=== PATIENT | female | born 1935 | race Caucasian/White ===

== ENCOUNTER → 2016-09-19 | Outpatient (CLI) | payer OTHER, BC ==
[~2016-09-19] MED LIST: ASCA500 PO; ASPI81TA28 PO; B-COCAP2 PO; CRS/10 PO; FURO40TA3 PO; IBUP600T44 PO; MULT-506 PO; NTRGSL/4 UT; POTA-335 PO; RIVA1TAB4 PO; SERT50TA PO; SOTA80TA PO; VITA400C3 PO; XNX25 PO
[2016-09-19 09:43] LABS: HEMATOCRIT 43.5 % (37-47); MEAN CELL VOLUME 89.7 fL (80-100); MEAN CORPUSCULAR HEMOGLOBIN 29.5 pg (25-34); MEAN CORPUSCULAR HGB CONC 32.9 g/dl (32-36); MEAN PLATELET VOLUME 11.3 fL (7.4-10.4); PLATELET COUNT 159 K/uL (130-400); RED BLOOD COUNT 4.85 M/uL (4.2-5.4); WHITE BLOOD COUNT 5.84 K/uL (4.8-10.8)
[2016-09-19 09:48] LABS: BLOOD UREA NITROGEN 17 mg/dl (7-18); GLUCOSE 87 mg/dl (70-99)
[2016-09-19 09:49] LABS: ALT/SGPT 23 U/L (12-78); BUN/CREATININE RATIO 22.3 (10-20); CALCIUM 8.5 mg/dl (8.5-10.1); CARBON DIOXIDE 28 mmol/L (21-32); CHLORIDE 110 mmol/L (98-107); CHOLESTEROL 190 mg/dl (0-200); CREATININE 0.77 mg/dl (0.60-1.20); SODIUM 143 mmol/L (136-145)
[2016-09-19 09:59] LABS: ALB/GLOB RATIO 0.8 (0.9-2); ALKALINE PHOSPHATASE 74 U/L (45-117); AST/SGOT 21 U/L (15-37); CHOLESTEROL/HDL RATIO 3.1; HDL CHOLESTEROL 61 mg/dl; LDL CHOLESTEROL CALCULATED 113 mg/dl; TRIGLYCERIDES 81 mg/dl (0-150); VERY LOW DENSITY LIPOPROT CALC 16 mg/dl
== END | disposition home or self-care (01) ==
LOC: C.LAB 07:39
PROVIDERS: ATTEND Family Medicine
DX: I25.10 Atherosclerotic heart disease of native coronary artery without angina pectoris (principal); E78.5 Hyperlipidemia, unspecified; R60.9 Edema, unspecified

== ENCOUNTER → 2016-10-09 | Outpatient (CLI) | payer OTHER, BC ==
[2016-10-09 12:50] LABS: BLOOD UREA NITROGEN 23 mg/dl (7-18); BUN/CREATININE RATIO 26.7 (10-20); CALCIUM 9.2 mg/dl (8.5-10.1); CARBON DIOXIDE 30 mmol/L (21-32); CHLORIDE 103 mmol/L (98-107); CREATININE 0.87 mg/dl (0.60-1.20); GLUCOSE 74 mg/dl (70-99); POTASSIUM 4.1 mmol/L (3.5-5.1); SODIUM 141 mmol/L (136-145)
== END | disposition home or self-care (01) ==
LOC: C.LAB 10:34
PROVIDERS: ATTEND Family Medicine
DX: R60.9 Edema, unspecified (principal)

== ENCOUNTER → 2017-04-09 | Outpatient (CLI) | payer OTHER, BC ==
[2017-04-09 09:35] LABS: HEMATOCRIT 42.3 % (37-47); MEAN CELL VOLUME 89.1 fL (80-100); MEAN CORPUSCULAR HEMOGLOBIN 29.9 pg (25-34); MEAN CORPUSCULAR HGB CONC 33.6 g/dl (32-36); MEAN PLATELET VOLUME 10.8 fL (7.4-10.4); PLATELET COUNT 157 K/uL (130-400); RED BLOOD COUNT 4.75 M/uL (4.2-5.4); WHITE BLOOD COUNT 6.33 K/uL (4.8-10.8)
[2017-04-09 09:56] LABS: ALT/SGPT 21 U/L (12-78); AST/SGOT 20 U/L (15-37); BLOOD UREA NITROGEN 15 mg/dl (7-18); BUN/CREATININE RATIO 17.8 (10-20); CARBON DIOXIDE 29 mmol/L (21-32); CHLORIDE 108 mmol/L (98-107); CHOLESTEROL 191 mg/dl (0-200); CREATININE 0.83 mg/dl (0.60-1.20); GLUCOSE 85 mg/dl (70-99); POTASSIUM 4.2 mmol/L (3.5-5.1); SODIUM 141 mmol/L (136-145); TRIGLYCERIDES 95 mg/dl (0-150); VERY LOW DENSITY LIPOPROT CALC 19 mg/dl
[2017-04-09 10:17] LABS: ALB/GLOB RATIO 0.9 (0.9-2); ALKALINE PHOSPHATASE 72 U/L (45-117); CHOLESTEROL/HDL RATIO 2.9; HDL CHOLESTEROL 65 mg/dl; LDL CHOLESTEROL CALCULATED 107 mg/dl
== END | disposition home or self-care (01) ==
LOC: C.LAB 08:10
PROVIDERS: ATTEND Neuromusculoskeletal Medicine & OMM
DX: I25.10 Atherosclerotic heart disease of native coronary artery without angina pectoris (principal); E78.5 Hyperlipidemia, unspecified; R60.9 Edema, unspecified; I10 Essential (primary) hypertension

== ENCOUNTER → 2017-05-31 | Outpatient (CLI) | payer OTHER, BC ==
--- NOTE | 2017-05-31 15:00 | DIAGNOSTIC IMAGING REPORT ---
CHEST 2 VIEWS ROUTINE CLINICAL HISTORY: R06.09 Dyspnea on [id number] dyspnea COMPARISON STUDY: 02/10/2016 FINDINGS: Good position of a permanent bipolar cardiac pacemaker. Mild tortuosity thoracic aorta. Heart top limits normal in terms of size. Diaphragms smooth. Lungs are clear. IMPRESSION: Chronic and postoperative change. No acute process. The above report was generated using voice recognition software. It may contain grammatical, syntax or spelling errors. Electronically signed by: Philippe Henry M.D. 05/31/2017 2:59 PM Dictated Date/Time: 05/31/2017 2:57 PM
== END | disposition home or self-care (01) ==
LOC: C.RAD1850 14:43
PROVIDERS: ATTEND Physician Assistant
DX: R06.09 Other forms of dyspnea (principal)

== ENCOUNTER → 2017-06-07 | Outpatient (CLI) | payer OTHER, BC ==
[~2017-06-07] MED LIST changes: +REGADENOSON 0.4 MG/5 ML SYR ONE
== END | disposition home or self-care (01) ==
LOC: C.NUCL 10:52
PROVIDERS: ATTEND Physician Assistant
DX: I25.10 Atherosclerotic heart disease of native coronary artery without angina pectoris (principal); R06.09 Other forms of dyspnea

== ENCOUNTER → 2017-06-12 | Outpatient (CLI) | payer OTHER, BC ==
[~2017-06-12] MED LIST changes: +ALPR-413 PO; +ASPI325T45 PO; +FRS/40 PO; +METH-446 PO; +POTA20TA16 PO; -REGADENOSON 0.4 MG/5 ML SYR ONE; +SIMV10TA2 PO; +SOTA240T PO; +SPIR25TA PO
== END | disposition home or self-care (01) ==
LOC: C.PATHSPEC 13:16
PROVIDERS: ATTEND Obstetrics & Gynecology
DX: N95.0 Postmenopausal bleeding (principal)

== ENCOUNTER → 2017-06-12 | Outpatient (CLI) | payer OTHER, BC | END | disposition home or self-care (01) | LOC: C.PAPS 13:55 | PROVIDERS: ATTEND Obstetrics & Gynecology | DX: N95.0 Postmenopausal bleeding (principal) ==

== ENCOUNTER → 2017-07-15 | Day surgery (SDC) | payer OTHER, BC ==
[2017-06-27 13:36] VITALS: Ht 165.1 cm; Wt 86.4 kg
[2017-07-10 15:59] LABS: POTASSIUM 3.9 mmol/L (3.5-5.1)
--- NOTE | 2017-07-12 10:13 | HISTORY & PHYSICAL EXAMINATION ---
DATE OF ADMISSION: 07/15/2017 CHIEF COMPLAINT: Postmenopausal bleeding. HISTORY OF PRESENT ILLNESS: The patient is an 82-year-old white female 3, para 3 who has been menopausal since her early 50s. The patient reports spotting and sometimes heavier bleeding for approximately 7 months. She was seen by me on 06/12/2017 and I performed an endometrial biopsy at that time. Unfortunately, no endometrial tissue was identified. Pelvic ultrasound shows a thickened endometrial lining of 12.8 mm which has some microcystic changes. Pap smear done on 06/12/2017 was negative. The patient does have a history of cardiac disease. She will be stopping her Xarelto 2 days before the procedure. She does have clearance from cardiology. PAST MEDICAL HISTORY: ALLERGIES: SHE REPORTS AN ALLERGY TO DIGOXIN. MEDICATIONS: The patient takes Xarelto 20 mg daily, aspirin 325 mg 1 daily, Colace daily, furosemide 40 mg daily, Klor-Con 20 mEq 1 tablet daily, methocarbamol 750 mg 1 tablet if needed, Nitrostat 0.4 mg sublingual tablet every 5 minutes for up to 3 doses as needed for chest pain, omeprazole 20 mg delayed release capsule twice daily as needed with ibuprofen use, sertraline 50 mg 1/2 tablet daily, simvastatin 10 mg 1 tablet Saturday, Saturday and Saturday, sotalol 250 mg twice a day, spironolactone 25 mg 1 tablet Saturday, Saturday and Saturday, tramadol 50 mg 1 tablet every 6 hours as needed. The patient also takes vitamin B complex 1 daily, vitamin C tablet 1 tablet twice a week, vitamin D tablets 1 tablet twice a week, vitamin E 1 capsule twice weekly. PAST SURGICAL HISTORY: The patient does have coronary artery stents in place. She has a history of hemorrhoidectomy, a history of tubal ligation. She also has had a pacemaker placed. ILLNESSES: The patient has a history of PAT, also anxiety disorder, history of coronary artery disease with cardiac pacemaker and stent placement. History of depression. History of elevated lipids. History of hypertension. Also osteoarthritis. History of heart attack. FAMILY HISTORY: Her mother had congestive heart failure, hypertension and a history of ulcer. Her father had colon cancer. Her sister has coronary artery disease and lung cancer. SOCIAL HISTORY: The patient denies use of alcohol or drug use. She was never a smoker. She is . PHYSICAL EXAMINATION: VITAL SIGNS: Height is 5 feet 5 inches, weight 190 pounds, blood pressure 124/76. HEAD, EYES, EARS, NOSE, AND THROAT: Grossly within normal limits. NECK: Supple without masses. CHEST: Her lungs are clear without wheezing. HEART: Regular rate and rhythm. There is a systolic murmur present. ABDOMEN: Soft and nontender with no masses. PELVIC: External genitalia normal. Vagina pink and smooth. Cervix was closed with no lesions visible. No bleeding at present. Uterus sits high in the pelvis and seems to be within normal limits size. Adnexa nontender with no masses palpable. EXTREMITIES: No cyanosis, clubbing or edema. IMPRESSION: An 82-year-old white female with post-menopausal bleeding, endometrial thickening and/or mass by ultrasound. PLAN: The patient is for hysteroscopy, dilation of the cervix and curettage with possible removal of polyp/lesion. The patient is aware of the risks of bleeding, infection, perforation of the uterus and possible need for further surgery or treatment. MARTIN
[~2017-07-15] VITALS: Ht 165.1 cm; Wt 86.4 kg
[~2017-07-15] MED LIST changes: -ASCA500 PO; -ASPI81TA28 PO; +ATROPINE SULFATE 0.1 MG/ML 5ML SYR IV PRN; -B-COCAP2 PO; -CRS/10 PO; +DEXAMETHASONE SOD INJ 4 MG/ML VIAL ONE; +EpHEDrine SULFATE INJ 50 MG/ML AMP IV PRN; +FENTANYL CITRATE INJ 50 MCG/1 ML 2 ML VIAL IV PRN; +FENTANYL CITRATE INJ 50 MCG/1 ML 2 ML VIAL ONE; -FURO40TA3 PO; +HYDROmorphone INJ 1 MG/ML SYR IV PRN; -IBUP600T44 PO; +IBUPROFEN 600 MG TAB PO PRN; +LACTATED RINGER'S 1000ML 1,000 ML IV SCH; +LIDOCAINE HCL 2% 2 ML VIAL (20MG/ML) ONE; -MULT-506 PO; -NTRGSL/4 UT; +ONDANSETRON INJ 2 MG/ML 2 ML VIAL IV PRN; +ONDANSETRON INJ 2 MG/ML 2 ML VIAL ONE; -POTA-335 PO; +PROPOFOL IV EMULSION 10 MG/ML 20 ML VIAL IV ONE; +SODIUM CHLORIDE 0.9% 1000ML 1,000 ML IV SCH; -SOTA80TA PO; -VITA400C3 PO; -XNX25 PO
--- NOTE | 2017-07-15 07:55 | History & Physical Bridge - SC ---
H&P Re-Evaluation Bridge Note: I have examined the patient, reviewed the History & Physical and in the interval since the performance of the History & Physical I have noted the following changes of clinical significance: No changes noted
--- NOTE | 2017-07-15 08:44 | [facility] Post Operative Brief Note ---
Immediate Operative Summary Operative Date Jul 15, 2017. Pre-Operative Diagnosis Post menopausal bleeding Post-Operative Diagnosis Same as preop Procedure(s) Performed Dilatation And Curettage, Hysteroscopy, Polypectomy using Myosure Surgeon Dr. Duncan Rail Switch Operator Surgeon(s) None Estimated Blood Loss 10 mL Findings See dictated note. Specimens A: Endocervical curettings B: Endometrial curettings and polyp Complication(s) None Disposition Recovery Room / PACU
--- NOTE | 2017-07-15 08:55 | Discharge Instructions-SurgCtr ---
Discharge Instructions Date of Service Jul 15, 2017. Visit Reason for Visit: Post Menopausal Bleeding Discharge Discharge Diagnosis / Problem: S/P Hysteroscopy, D&C, polypectomy using Myosure Discharge Goals Goal(s): Diagnostic testing, Therapeutic intervention Medications Stopped Medications Name(s): ASA 325 reduced to 81 mg. Xarelto stopped 4 days ago Restart Stopped Medication(s): Resume taking xarelto 07/16/17, and resume usual amount of aspirin tomorrow. Activity Recommendations Activity Limitations: per Instructions/Follow-up section Anesthesia . Post Anesthesia Instructions: If you have had General Anesthesia or IV Sedation: * Do not drive today. * Resume driving when surgeon permits. * Do not make important decisions or sign legal documents today. * Call surgeon for: 1. Temperature elevations greater than 101 degrees F. 2. Uncontrollable pain. 3. Excessive bleeding. 4. Persistent nausea and vomiting. 5. Medication intolerance (nausea, vomiting or rash). * For nausea and vomiting use only clear liquids such as: tea, soda, bouillon until nausea subsides, then gradually increase diet as tolerated. * If you have any concerns or questions, call your surgeon's office. If physician is unavailable and it is an emergency, call 911 or go to the nearest emergency room. . Instructions / Follow-Up Instructions / Follow-Up ACTIVITY RECOMMENDATIONS: * Avoid tampons, douching, hot tubs, pools, and intercourse until bleeding has stopped. * May shower as usual. * No strenuous activity for 24-48 hours. After 24-48 hours, you may do anything you feel like doing (driving and sports are okay). SPECIAL CARE INSTRUCTIONS: Special Diet: * Mild nausea may occur in the immediate post-operative period. * Take clear liquids such as tea, cola or bouillon until all nausea has subsided; you may then resume your normal diet. Special Care: * Light bleeding and vaginal spotting can last from a few days to 3-4 weeks. Call your doctor if bleeding becomes heavier than the heaviest part of your period. * Check your temperature twice a day for one week. If it goes above 100.4 degrees Fahrenheit (38.0 Celsius), notify your doctor. Call if you develop a foul smelling vaginal discharge or if you have persistent severe cramping. * Call your doctor's office for an appointment for 2-4 weeks after your surgery. [phone] Duncan. FOLLOW-UP VISIT: Call your doctor's office for an appointment for 2-4 weeks after your surgery. [phone] Diet Recommendations Home Diet: resume previous diet Procedures Procedures Performed: Dilatation And Curettage, Hysteroscopy, Polypectomy using Myosure Pending Studies Studies pending at discharge: yes List of pending studies: Pathology report on tissue removed. We will have this report back by the end of the week. We will call you with it. Medical Emergencies . Who to Call and When: Medical Emergencies: If at any time you feel your situation is an emergency, please call 911 immediately. . Non-Emergent Contact Non-Emergency issues call your: Branch Assistant Call Non-Emergent contact if: temperature is above 100.5, your pain is worsening . . "Provider Documentation" section prepared by Marlin Duncan. .
--- NOTE | 2017-07-15 09:13 | OPERATIVE REPORT ---
DATE OF OPERATION: 07/15/2017 PREOPERATIVE DIAGNOSIS: Postmenopausal bleeding. POSTOPERATIVE DIAGNOSIS: Same with pathology pending. PROCEDURES: Hysteroscopy, D&C and polypectomy. SURGEON: Dr. Marlin Duncan. ANESTHESIA: General. REVENUE INTEGRITY ANALYST: Dr. Newell. DESCRIPTION OF PROCEDURE: The patient was taken to the operating room, where general anesthesia was administered. After an adequate level was obtained, she was placed in dorsal lithotomy position. Vulva, vagina, and cervix were prepped with Betadine solution. The patient was draped. Bladder was drained with a straight catheter. Weighted speculum was placed in the posterior fornix of the vagina. The anterior lip of the cervix was grasped with an Allis clamp. The exocervix was dilated with a small curved hemostat. Kevorkian curette was then introduced into the endocervical canal and endocervical curettings were obtained. These were scant. It was then possible to dilate the cervix. This was dilated enough to admit the hysteroscope. Hysteroscope was introduced and the endometrial cavity visualized. There were several small polypoid masses. These were irregular in appearance, although did not have the classic appearance of adenocarcinoma. In order to assure that I removed all the polypoid tissue, a MyoSure instrument was then introduced into the cavity and all the polypoid tissue and some additional endometrial tissue was removed. Cavity appeared empty and atrophic after this was finished. The patient tolerated this well. ESTIMATED BLOOD LOSS: 10 mL. This tissue was sent to pathology. The patient was taken to the recovery room in good condition. I attest to the content of the Intraoperative Record and any orders documented therein. Any exceptions are noted below. MARTIN
[2017-07-15 09:26] VITALS: TEMP 36.4
--- NOTE | 2017-07-15 09:50 | Anesthesia Progress Nt - [facility] ---
Anesthesia Post Op Note Date & Time Jul 15, 2017 at 09:50 Vital Signs Pain Intensity: 0 Vital Signs Past 12 Hours Date Time Temp Pulse Resp B/P (MAP) Pulse Ox O2 Delivery O2 Flow Rate FiO2 07/15/17 09:26 36.4 78 18 133/66 (88) 94 Room Air 07/15/17 09:21 36.4 60 16 153/74 96 Room Air 07/15/17 09:17 59 21 07/15/17 09:17 60 21 95 07/15/17 09:15 154/81 07/15/17 09:12 62 23 97 07/15/17 09:12 62 23 07/15/17 09:10 130/75 07/15/17 09:07 64 14 07/15/17 09:07 62 14 92 07/15/17 09:05 138/71 07/15/17 09:02 60 24 96 07/15/17 09:02 60 24 07/15/17 09:00 140/73 07/15/17 08:57 61 16 07/15/17 08:57 61 16 96 07/15/17 08:56 141/75 07/15/17 08:52 67 17 07/15/17 08:52 67 17 97 07/15/17 08:51 68 16 96 07/15/17 08:51 68 16 96 07/15/17 08:51 68 16 07/15/17 08:51 68 16 07/15/17 08:50 147/73 07/15/17 08:50 147/73 07/15/17 08:49 145/75 07/15/17 08:49 145/75 07/15/17 08:47 36.4 62 16 144/76 97 Mask 5 07/15/17 07:34 36.4 72 16 143/84 (103) 93 Room Air Notes Mental Status: alert / awake / arousable, participated in evaluation Pt Amnestic to Procedure: Yes Nausea / Vomiting: adequately controlled Pain: adequately controlled Airway Patency, RR, SpO2: stable & adequate BP & HR: stable & adequate Hydration State: stable & adequate Anesthetic Complications: no major complications apparent
[2017-07-15 09:52] VITALS: BP 120/83; PULSE 64; O2SAT 95
== END | disposition home or self-care (01) ==
LOC: X.SURG 07:21
PROVIDERS: ATTEND Obstetrics & Gynecology
DX: N95.0 Postmenopausal bleeding (principal); C54.1 Malignant neoplasm of endometrium; I48.0 Paroxysmal atrial fibrillation; I25.10 Atherosclerotic heart disease of native coronary artery without angina pectoris; F41.9 Anxiety disorder, unspecified; F32.9 Major depressive disorder, single episode, unspecified; H91.90 Unspecified hearing loss, unspecified ear; E78.5 Hyperlipidemia, unspecified; I10 Essential (primary) hypertension; M19.90 Unspecified osteoarthritis, unspecified site; Z98.51 Tubal ligation status; Z95.0 Presence of cardiac pacemaker; Z79.899 Other long term (current) drug therapy; Z79.82 Long term (current) use of aspirin; Z79.01 Long term (current) use of anticoagulants; Z82.49 Family history of ischemic heart disease and other diseases of the circulatory system; Z80.0 Family history of malignant neoplasm of digestive organs

== ENCOUNTER → 2018-02-10 | Outpatient (CLI) | payer OTHER, BC ==
[~2018-02-10] MED LIST changes: +ASPECOTC PO; -ASPI325T45 PO; -ATROPINE SULFATE 0.1 MG/ML 5ML SYR IV PRN; -DEXAMETHASONE SOD INJ 4 MG/ML VIAL ONE; -EpHEDrine SULFATE INJ 50 MG/ML AMP IV PRN; -FENTANYL CITRATE INJ 50 MCG/1 ML 2 ML VIAL IV PRN; -FENTANYL CITRATE INJ 50 MCG/1 ML 2 ML VIAL ONE; -HYDROmorphone INJ 1 MG/ML SYR IV PRN; -IBUPROFEN 600 MG TAB PO PRN; -LACTATED RINGER'S 1000ML 1,000 ML IV SCH; -LIDOCAINE HCL 2% 2 ML VIAL (20MG/ML) ONE; -ONDANSETRON INJ 2 MG/ML 2 ML VIAL IV PRN; -ONDANSETRON INJ 2 MG/ML 2 ML VIAL ONE; +POTA-639 PO; -POTA20TA16 PO; -PROPOFOL IV EMULSION 10 MG/ML 20 ML VIAL IV ONE; -SODIUM CHLORIDE 0.9% 1000ML 1,000 ML IV SCH
== END | disposition home or self-care (01) ==
LOC: C.PATHSPEC 17:48
PROVIDERS: ATTEND Plastic Surgery
DX: B07.9 Viral wart, unspecified (principal)

== ENCOUNTER 2019-07-24 22:13 | Observation (INO) ==
[2019-07-24] MEDS ORDERED: dilTIAZem HCl 5 MG/ML 5 ML VIAL IV STA (22:27)
--- NOTE | 2019-07-24 22:34 | Emergency Department Note ---
History of Present Illness General Chief complaint: Arrhythmia/Palpitations Stated complaint: PALPITATIONS History of Present Illness This 84-year-old presents to the ER complaining of palpitations Location: Chest Quality: Heart racing Severity: Moderate Duration: Tonight Timing: Started while reading tonight Context: Patient was concerned and came in Modifying factors: better with nothing; worse with nothing Patient has a history of A. fib and follows with Dr. Bailey. She is on Xarelto and sotalol. Patient denies chest pain, abdominal pain, leg pain or swelling, fever, chills, cough, congestion. She just saw the cardiology PA yesterday and the family care doctor last week and us last week. Home Medications Home Medications Medication Instructions Recorded Confirmed Type aspirin 325 mg PO QAM 11/15/18 07/24/19 History rivaroxaban [Xarelto] 20 mg PO HS 11/15/18 07/24/19 History sotalol 240 mg tablet 240 mg PO BID #180 tab 02/10/19 07/24/19 Rx docusate sodium 100 mg capsule 100 mg PO DAILY 02/24/19 07/24/19 History multivitamin 1 tab PO DAILY 02/24/19 07/24/19 History polyethylene glycol 3350 17 17 g PO DAILY PRN gm 02/24/19 07/24/19 History gram/dose oral powder ascorbic acid (vitamin C) 500 mg 500 mg PO 2XWK tab 04/30/19 07/24/19 History tablet cholecalciferol (vitamin D3) 2,000 2,000 units PO 2XWK tab 04/30/19 07/24/19 History unit tablet nitroglycerin 0.4 mg sublingual 0.4 mg SL Q5M PRN #25 tab 04/30/19 07/24/19 History tablet alprazolam 0.25 mg tablet 0.25 mg PO BID PRN #30 tab 05/01/19 07/24/19 Rx sertraline 50 mg tablet 75 mg PO QAM #45 tab 05/06/19 07/24/19 Rx methocarbamol 750 mg tablet 750 mg PO BID PRN #60 tab 05/25/19 07/24/19 Rx furosemide 40 mg tablet 40 mg PO DAILY #90 tab 07/06/19 07/24/19 Rx potassium chloride 20 meq PO DAILY 07/14/19 07/24/19 History simvastatin 10 mg PO 3XWK 07/14/19 07/24/19 History albuterol sulfate 90 mcg/actuation 1 - 2 puffs INH QID #18 gm 07/20/19 07/24/19 Rx aerosol inhaler Allergies Allergy/AdvReac Type Severity Reaction Status Date / Time digoxin AdvReac Mild DIARRHEA Verified 07/24/19 23:55 Past Med/Surg History Medical History Acute myocardial infarction Atrial fibrillation (Chronic) Encounter for follow-up surveillance of endometrial cancer Endometrial adenocarcinoma s/p robotic TLH/BSO 2018 HTN (hypertension) (Chronic) Surgical History S/P hysterectomy S/P placement of cardiac pacemaker S/P tubal ligation Family History Father Colorectal cancer Mother Congestive heart failure Hypertension Ulcer Colorectal cancer Myocardial infarction Sister Coronary arteriosclerosis Endometriosis Lung cancer Social History Preferred Language: Moldovan Communication Ability: Effective Visual Impairment: No Limitations Hearing Ability: Normal Beliefs That Will Affect Care: None marital status: Current Living Situation: Alone current occupational status: retired Feels Safe at Home: Yes Smoking Status: Never smoker Hx Alcohol Use: No Hx Substance Use: No Childhood Exposure to Second-Hand Smoke: No Dental Care, Regularly: No Physical Activity Frequency: Does not Exercise Seatbelt Use: always Sunscreen Use: No Review of Systems A total of 10 systems reviewed and were otherwise negative Physical Exam Vital Signs Vital Signs - 24 hr 07/24/19 22:17 07/24/19 22:30 07/24/19 22:33 Temperature 36.8 C Temperature Source Oral Pulse Rate 124 H 123 H Pulse Rate [Bilateral Apical] Pulse Rate from SpO2 Sensor 125 H Pulse Rhythm Irregular Pulse Strength Normal Respiratory Rate 20 19 Respiratory Effort / Characteristics Non-Labored Spontaneous Respiratory Pattern Regular Blood Pressure 156/109 H 119/89 Blood Pressure [Left Arm] Blood Pressure Mean 124 94 Blood Pressure Mean [Left Arm] Blood Pressure Position Sitting Pulse Oximetry 94 94 94 Oxygen Delivery Method Room Air Room Air Room Air Sepsis Recent Fever Within 48 Hours No Sepsis New/Unexplained Change in Mental Status No Sepsis Action Taken by Nursing No Action Required 07/24/19 23:07 07/24/19 23:33 07/25/19 00:21 Temperature Temperature Source Pulse Rate Pulse Rate [Bilateral Apical] 82 99 H 104 H Pulse Rate from SpO2 Sensor Pulse Rhythm Pulse Strength Respiratory Rate 18 20 20 Respiratory Effort / Characteristics Respiratory Pattern Blood Pressure Blood Pressure [Left Arm] 121/85 131/86 137/86 Blood Pressure Mean Blood Pressure Mean [Left Arm] 97 101 103 Blood Pressure Position Pulse Oximetry 93 93 95 Oxygen Delivery Method Room Air Room Air Room Air Sepsis Recent Fever Within 48 Hours Sepsis New/Unexplained Change in Mental Status Sepsis Action Taken by Nursing VITALS: Vitals are noted on the nurse's note and reviewed by myself. Vital signs tachycardic. GENERAL: Pleasant female, in no acute distress, nondiaphoretic, well-developed well-nourished. SKIN: Capillary reflex less than 2 seconds. HEENT: Normocephalic. PERRLA. EOMI. Nares patent. Mucous membranes moist. Neck is supple without nuchal rigidity. HEART: Tachycardic irregularly irregular LUNGS: Clear to auscultation bilaterally without wheezes, rales or rhonchi. No retractions or accessory muscle use. ABDOMEN: Positive bowel sounds x 4. Normal tympanic percussion. Soft, n ontender, without masses or organomegaly. Degroot sign negative. No guarding or rebound tenderness. MUSCULOSKELETAL: No gross musculoskeletal defects. +1 pitting edema up to the mid tib-fib bilaterally. NEURO: Patient was alert and oriented to person place and time. No focal neurological deficits. Course Administered Medications Discontinued Medications Diltiazem HCl (Cardizem) 10 mg IV NOW STA Stop: 07/24/19 22:28 Last Admin: 07/24/19 22:57 Dose: 10 mg Documented by: [id number] Cosigned by: [id number] Medical Decision Making Medical Records Attestation: I reviewed the patient's medical records. Home Medications Current Medication List: was personally reviewed by me Laboratory Data Attestation: I reviewed the patient's lab results. Result diagrams: 07/24/19 22:45 07/24/19 22:45 Lab Results 07/24/19 07/24/19 Range/Units 22:45 22:45 WBC 7.92 (4.8-10.8) K/uL RBC 4.43 (4.2-5.4) M/uL Hgb 12.8 (12.0-16.0) g/dL Hct 39.4 (37-47) % MCV 88.9 (80-100) fL MCH 28.9 (25-34) pg MCHC 32.5 (32-36) g/dL RDW Std Deviation 44.6 (36.4-46.3) fL RDW Coeff of Cem 13.6 (11.5-14.5) % Plt Count 161 (130-400) K/uL MPV 10.9 H (7.4-10.4) fL Immature Gran % (Auto) 0.1 % Neut % (Auto) 60.6 % Lymph % (Auto) 20.2 % Mcdowell % (Auto) 14.5 % Eos % (Auto) 4.2 % Baso % (Auto) 0.4 % Immature Gran # (Auto) 0.01 (0.00-0.02) K/uL Neut # (Auto) 4.80 (1.4-6.5) K/uL Lymph # (Auto) 1.60 (1.2-3.4) K/uL Mcdowell # (Auto) 1.15 H (0.11-0.59) K/uL Eos # (Auto) 0.33 (0-0.5) K/uL Baso # (Auto) 0.03 (0-0.2) K/uL Sodium 141 (136-145) mmol/L Potassium 3.7 (3.5-5.1) mmol/L Chloride 109 H (98-107) mmol/L Carbon Dioxide 26 (21-32) mmol/L Anion Gap 7.0 (3-11) BUN 23 H (7-18) mg/dl Creatinine 0.89 (0.6-1.2) mg/dl Est Cr Clr Drug Dosing 44.8 ml/min Est GFR ( Amer) 69.5 Est GFR (Non-Af Amer) 59.9 BUN/Creatinine Ratio 26.1 H (10-20) Glucose 121 H (70-99) mg/dl Calcium 8.8 (8.5-10.1) mg/dl Magnesium 2.1 (1.8-2.4) mg/dl Total Bilirubin 0.2 (0.2-1) mg/dl AST 19 (15-37) U/L ALT 19 (12-78) U/L Alkaline Phosphatase 85 (45-117) U/L Troponin I < 0.015 (0-0.045) ng/ml Total Protein 7.2 (6.4-8.2) gm/dl Albumin 3.0 L (3.4-5.0) gm/dl Globulin 4.2 H (2.5-4.0) gm/dl Albumin/Globulin Ratio 0.7 L (0.9-2) TSH 2.260 (0.300-4.500) uIu/ml Imaging Data Attestation: I personally reviewed and interpreted this imaging study as follows: Blood Pressure Blood Pressure Findings: Elevated blood pressure Blood Pressure Disposition: Referred to patients primary care provider [facility] Narrative Prior records/ancillary studies reviewed. Triage Nursing notes reviewed. Additional history obtained from EMS. The patient's history was concerning for palpitations. Differential diagnosis: Etiologies such as premature contractions, electrolyte abnormality, cardiac dysrhythmia, thyroid dysfunction, pulmonary embolism, infection, gastrointestinal, as well as others were entertained. Physical examination: Benign as above. ER treatment provided: Cardizem On reassessment the patient felt better. Diagnostic interpretation by me: An order was placed for continuous cardiac monitoring. The monitor shows a rate of tachycardia with a atrial fib rhythm The electrocardiogram irregularly irregular with ventricular rate of 119 with T wave inversions in the inferior leads. EKG compared to prior EKG from last week with no acute changes noted. Impression atrial fibrillation with RVR with T wave changes that are unchanged interpreted by myself The labs revealed negative troponin. Euthyroid Imaging studies: Chest x-ray with no acute consolidation, pneumothorax or free air per my interpretation Consultation: A consultation was placed with hospitalist, Dr. Ford. The case was discussed and diagnostics were reviewed. The patient was evaluated in the ER for further treatment. This appears to be consistent with A. fib with RVR. Patient was given Cardizem with some improvement. Medicine was consulted. She will be evaluated by them for possible admission. By the evaluation outlined above emergent etiologies such as electrolyte abnormality, cardiac dysrhythmia, thyroid dysfunction, pulmonary embolism, infection, as well as others were deemed relatively unlikely. The pt informed about the findings as listed above. All questions were answered and pleased with the treatment. The chart was completed utilizing [employer] Speech voice recognition software. Grammatical errors, random word insertions, pronoun errors, and incomplete sentences are an occassional consequence of this system due to software limitations, ambient noise, and hardware issues. Any formal questions or concerns about the content, text, or information contained within the body of this dictation should be directly addressed to the physician therapeutic recreation assistant for clarification. Impression & Plan Atrial fibrillation with rapid ventricular response Discharge Plan Visit Data Chief Complaint: Arrhythmia/Palpitations Stated Complaint: PALPITATIONS ED Provider: Cedric Rucker ED Midlevel Provider: Naye Perez Discharge Problem: Atrial fibrillation with rapid ventricular response Patient Disposition: Being Evaluated by Hospitalist Condition: Good Forms Stand Alone Forms: Provender Prescriptions Prescriptions: No Action sotalol 240 mg tablet 240 mg PO BID Qty: 180 RF: 3 sertraline 50 mg tablet 75 mg PO QAM Qty: 45 RF: 3 methocarbamol [Robaxin-750] 750 mg tablet 750 mg PO BID PRN (Reason: Pain) Qty: 60 RF: 1 furosemide 40 mg tablet 40 mg PO DAILY Qty: 90 RF: 1 docusate sodium [Colace] 100 mg capsule 100 mg PO DAILY RF: 0 polyethylene glycol 3350 17 gram/dose powder 17 g PO DAILY PRN (Reason: Constipation) RF: 0 multivitamin [Daily Multi-Vitamin] tablet 1 tab PO DAILY RF: 0 ascorbic acid (vitamin C) 500 mg tablet 500 mg PO 2XWK RF: 0 cholecalciferol (vitamin D3) 2,000 unit tablet 2,000 units PO 2XWK RF: 0 nitroglycerin 0.4 mg tablet, sublingual 0.4 mg SL Q5M PRN (Reason: chest pain) Qty: 25 RF: 0 albuterol sulfate 90 mcg/actuation HFA aerosol inhaler 1 - 2 puffs INH QID Qty: 18 RF: 2 alprazolam 0.25 mg tablet 0.25 mg PO BID PRN (Reason: Anxiety) Qty: 30 RF: 0 potassium chloride 20 mEq tablet,ER particles/crystals 20 meq PO DAILY RF: 0 simvastatin 10 mg tablet 10 mg PO 3XWK RF: 0 aspirin 325 mg Tablet 325 mg PO QAM RF: 0 Xarelto 20 mg tablet 20 mg PO HS RF: 0 Referrals Referrals: Matt Saldaña, [Primary Care Provider] -
[2019-07-24 22:57] LABS: Basophils # (auto) 0.03 K/uL (0-0.2); Basophils % (auto) 0.4 %; Eosinophils # (auto) 0.33 K/uL (0-0.5); Eosinophils % (auto) 4.2 %; Hematocrit (blood only) 39.4 % (37-47); Hemoglobin 12.8 g/dL (12.0-16.0); Immature Granulocytes # (auto) 0.01 K/uL (0.00-0.02); Immature Granulocytes % (auto) 0.1 %; Lymphocytes % (auto) 20.2 %; Mean Corpuscular Hemoglobin 28.9 pg (25-34); Mean Corpuscular Hgb Conc 32.5 g/dL (32-36); Mean Corpuscular Volume 88.9 fL (80-100); Mean Platelet Volume 10.9 fL (7.4-10.4); Monocytes # (auto) 1.15 K/uL (0.11-0.59); Monocytes % (auto) 14.5 %; Neutrophils % (auto) 60.6 %; Platelet Count 161 K/uL (130-400); RDW Coefficient of Variation 13.6 % (11.5-14.5); RDW Standard Deviation 44.6 fL (36.4-46.3); Red Blood Count 4.43 M/uL (4.2-5.4); White Blood Count 7.92 K/uL (4.8-10.8)
--- NOTE | 2019-07-24 22:58 | XRay Report ---
XR chest 1V portable HISTORY: Shortness of breath. COMPARISON: Chest 07/14/2019. FINDINGS: There is a left-sided dual-chamber pacemaker. The leads appear intact. The heart remains raji rderline enlarged. No new focal lung consolidations to suggest pneumonia. No evidence for pulmonary e shawn. No pleural effusions. No pneumothorax. Stable linear scarlike density within the left midlung z one. Stable prominence of the right hilum. IMPRESSION: No significant change compared to the prior study. No acute process. Stable right hilar prominence. ACT 112: Negative or not required by law. Electronically signed by: Edmundo Robbins M.D. 07/24/2019 10:57 PM
[2019-07-24 23:14] LABS: Alanine Aminotransferase 19 U/L (12-78); Aspartate Aminotransferase 19 U/L (15-37); BUN Creatinine Ratio 26.1 (10-20); Blood Urea Nitrogen 23 mg/dl (7-18); Calcium 8.8 mg/dl (8.5-10.1); Carbon Dioxide 26 mmol/L (21-32); Chloride 109 mmol/L (98-107); Creatinine Clr Calc Pharmacy 44.8 ml/min; Est GFR (African American) 69.5; Est GFR (Non-African American) 59.9; Glucose 121 mg/dl (70-99); Magnesium 2.1 mg/dl (1.8-2.4); Potassium 3.7 mmol/L (3.5-5.1); Sodium 141 mmol/L (136-145)
[2019-07-24 23:25] LABS: Albumin Globulin Ratio 0.7 (0.9-2); Alkaline Phosphatase 85 U/L (45-117); Bilirubin,Total 0.2 mg/dl (0.2-1); Globulin 4.2 gm/dl (2.5-4.0); Total Protein 7.2 gm/dl (6.4-8.2); Troponin I < 0.015 ng/ml (0-0.045)
--- NOTE | 2019-07-25 00:25 | History & Physical Report ---
Date of Service July 25, 2019 Assessment & Plan (1) Heart palpitations: Ms. Baez is a heri 84 year old woman with PMH of paroxysmal atrial fibrillation, CAD, anxiety, and OA who presents in A fib with RVR. Atrial Fibrillation Patient with known paroxysmal A fib, may have been exacerbated most recently by her albuterol which she has been taking qid scheduled Home regimen maxed out on sotalol at 240 mg BID On xarelto for anticoagulation Will continue both of these and add cardizem short acting 30 mg TID Hopefully will be able to discharge tomorrow with new PO cardizem Cardiology consultation placed since patient was just seen by Iliana Daniel in outpatient setting who recommended possibly making a rate control switch CAD Continuing simvasatin, sotalol and prn nitro troponin negative No signs of acute ischemic process Anxiety Continuing sertraline and xanax Pain Continuing robaxin DVT PPx: Xarelto F/E/N: Heart healthy diet, PO potassium Dispo: Admit for rate control hope to d/c tomorrow am (2) Osteoarthritis of both knees: (3) Anxiety: (4) Chronic pain: (5) Bilateral lower extremity edema: History of Present Illness Chief Complaint: Atrial Fibrillation with RVR Primary Care Provider: Matt Saldaña DO Ly Sasha is a very pleasant woman with a past medical history significant for Paroxysmal Atrial Fibrillation (On sotalol 240 mg BID, and rivaroxaban for anticoagulation), CAD with heart attack and stent placement a little over ten years ago, Anxiety, and osteoarthritis who is here today for atrial fibrillation with RVR. She was reading the newspaper this afternoon shortly after taking her sotalol and ventolin inhaler and noticed that she felt palpitations, she put on her home pulse ox and noted that she was in RVR and called an ambulance. She is currently otherwise asymptomatic and has denied any chest pain, shortness of breath beyond her baseline, syncope/presyncope, any change in her cardiovascular fitness, increased leg swelling, or any other concerning symptoms. On presentation to ED, EKG showing A fib rvr, negative troponin, vital signs otherwise stable, received one time 10 mg push of IV carvedilol and rate dropped to 90's She was recently placed on albuterol for a wheeze noted at her PCP's office. She was just in the emergency department for a similar presentation and was given IV lopressor and got her rate under control then went home and followed with her primary care provider and caridology who made no changes to her current regimen. She is already on sotalol 240 mg BID for rate control and rivaroxaban for anticoagulation. She denies any history of orthostatic symptoms, falls or lightheadedness. She denies any cigarette smoking, or drug use. She drinks alcohol only occasionally and nothing in the last month. Lives alone at home since of her a year and a half ago and has no concerns about living alone. Large family with multiple children and grand/great grandchildren in the area. Allergies Allergy/AdvReac Type Severity Reaction Status Date / Time digoxin AdvReac Mild DIARRHEA Verified 07/24/19 23:55 Home Medications Home Medications Medication Instructions Recorded Confirmed Type aspirin 325 mg PO QAM 11/15/18 07/24/19 History rivaroxaban [Xarelto] 20 mg PO HS 11/15/18 07/24/19 History sotalol 240 mg tablet 240 mg PO BID #180 tab 02/10/19 07/24/19 Rx docusate sodium 100 mg capsule 100 mg PO DAILY 02/24/19 07/24/19 History multivitamin 1 tab PO DAILY 02/24/19 07/24/19 History polyethylene glycol 3350 17 17 g PO DAILY PRN gm 02/24/19 07/24/19 History gram/dose oral powder ascorbic acid (vitamin C) 500 mg 500 mg PO 2XWK tab 04/30/19 07/24/19 History tablet cholecalciferol (vitamin D3) 2,000 2,000 units PO 2XWK tab 04/30/19 07/24/19 History unit tablet nitroglycerin 0.4 mg sublingual 0.4 mg SL Q5M PRN #25 tab 04/30/19 07/24/19 History tablet alprazolam 0.25 mg tablet 0.25 mg PO BID PRN #30 tab 05/01/19 07/24/19 Rx sertraline 50 mg tablet 75 mg PO QAM #45 tab 05/06/19 07/24/19 Rx methocarbamol 750 mg tablet 750 mg PO BID PRN #60 tab 05/25/19 07/24/19 Rx furosemide 40 mg tablet 40 mg PO DAILY #90 tab 01/06/20 01/24/20 Rx potassium chloride 20 meq PO DAILY 07/14/19 07/24/19 History simvastatin 10 mg PO 3XWK 07/14/19 07/24/19 History albuterol sulfate 90 mcg/actuation 1 - 2 puffs INH QID #18 gm 07/20/19 07/24/19 Rx aerosol inhaler Past Med/Surg History Medical History Acute myocardial infarction Atrial fibrillation (Chronic) Encounter for follow-up surveillance of endometrial cancer Endometrial adenocarcinoma s/p robotic TLH/BSO 2018 HTN (hypertension) (Chronic) Surgical History S/P hysterectomy S/P placement of cardiac pacemaker S/P tubal ligation Family History Father Colorectal cancer Mother Congestive heart failure Hypertension Ulcer Colorectal cancer Myocardial infarction Sister Coronary arteriosclerosis Endometriosis Lung cancer Social History Preferred Language: Luxembourgish Communication Ability: Effective Visual Impairment: No Limitations Hearing Ability: Normal Beliefs That Will Affect Care: None marital status: Current Living Situation: Alone current occupational status: retired Other Information That Helps Us Care for You: No Feels Safe at Home: Yes Smoking Status: Never smoker Hx Alcohol Use: No Hx Substance Use: No Childhood Exposure to Second-Hand Smoke: No Dental Care, Regularly: No Physical Activity Frequency: Does not Exercise Seatbelt Use: always Sunscreen Use: No Review of Systems Review of Systems: All systems reviewed & are unremarkable except as noted in HPI & below Physical Exam Physical Exam: Constitutional: Well appearing 84 year old woman who looks younger than stated age is resting comfortably in bed in no acute distress Eyes: EOMMI, PERRLA, Neck: No masses detected, no thyromegaly Respiratory: No increased work of breathing, breath sounds vesicular in all lung bone Cardiovascular: Irregularly irregulary rhythm, rate in the mid 90's jumping as high as 110's, peripheral pulses strong, 2+ pitting lower limb edema patient says is at her baseline GI: Abdomen soft, nontender Skin: Several small areas of bruising on arms and legs Results & Data Vital Signs (Past 12 Hours) Vital Signs Temp Pulse Pulse Resp BP BP Pulse Ox 07/24/19 23:33 99 H 20 131/86 93 07/24/19 23:07 82 18 121/85 93 07/24/19 22:33 94 07/24/19 22:30 123 H 19 119/89 94 07/24/19 22:17 36.8 C 124 H 20 156/109 H 94 Supervising Physician Co-Signing Physician Notes Attending addendum: I have physically seen this patient, have supervised the medical residents activities, and agree with the H&P unless as otherwise noted. Assessment and Plan: Paroxysmal atrial fibrillation/CAD/hypertension- The patient will be admitted to telemetry for serial cardiac enzymes, serial EKG's, cardiac rhythm monitoring. Likely recent exacerbation secondary to albuterol inhaler begun in the outpatient setting. Continue sotalol 240 mg p.o. twice daily. Continue Xarelto for anticoagulation. Start Cardizem short-acting 30 mg p.o. 4 times daily. Consult cardiology Remainder of orders and notations as noted Resident Activity Tracking Resident Involvement: Resident Care Provided Care Provided: Adult Hospital Medicine
[2019-07-25] MEDS ORDERED: NITROGLYCERIN SL 0.4 MG/TAB TAB SL PRN (01:13)
[2019-07-25] MEDS ORDERED: POLYETHYLENE (MIRALAX) 17 GM PACK PO PRN (01:13)
[2019-07-25] MEDS ORDERED: ALPRAZolam 0.25 MG TABLET PO PRN (01:13)
[2019-07-25] MEDS ORDERED: METHOCARBAMOL 750 MG TABLET PO PRN (01:13)
[2019-07-25] MEDS ORDERED: ACETAMINOPHEN 325 MG TAB PO PRN (01:13)
[2019-07-25] MEDS ORDERED: ALUMINUM/MAGNESIUM SUSP 30 ML UDC PO PRN (01:13)
[2019-07-25] MEDS: SOTALOL HCL 80 MG TAB PO SCH ×2 (07:55→20:28)
[2019-07-25] MEDS: ASPIRIN 325 MG ECTAB PO SCH (07:56)
[2019-07-25] MEDS: DOCUSATE SODIUM 100 MG CAP PO SCH (07:57)
[2019-07-25] MEDS: SERTRALINE HCL 50 MG TABLET PO SCH (07:57)
[2019-07-25] MEDS: dilTIAZem HCL 30 MG TAB PO SCH ×3 (07:57→20:27)
[2019-07-25] MEDS: POTASSIUM CHLORIDE 20 MEQ TABCR PO SCH (07:58)
[2019-07-25] MEDS: MULTIVITAMIN TAB PO SCH (08:31)
[2019-07-25] MEDS ORDERED: ASCORBIC ACID 500 MG TAB PO SCH (09:00)
[2019-07-25] MEDS ORDERED: FUROSEMIDE 40 MG TAB PO SCH (09:00)
[2019-07-25] MEDS ORDERED: CHOLECALCIFEROL 1,000 UNITS 25 MCG TAB PO SCH (09:00)
[2019-07-25 09:06] LABS: Calcium 8.9 mg/dl (8.5-10.1); Creatinine Clr Calc Pharmacy 59.3 ml/min; Est GFR (African American) 82.8; Est GFR (Non-African American) 71.4; Magnesium 2.3 mg/dl (1.8-2.4); Phosphorus 2.8 mg/dl (2.5-4.9); Potassium 3.8 mmol/L (3.5-5.1)
--- NOTE | 2019-07-25 10:38 | Cardiology Consultation ---
Date of Consultation July 25, 2019 Assessment & Plan (1) Paroxysmal atrial fibrillation: Unfortunately, this is her 2nd episode of atrial fibrillation this week. She has had an excellent response to sotalol over the years. Review of her device diagnostics suggests he really does not have atrial fibrillation except for the 2 most recent episodes. Fortunately, she is minimally symptomatic. She is aware of the palpitations but does not have other significant symptoms. There are many options for treatment going forward. May see some improvement in her rhythm control as time goes forward. I do not think it is necessary to discontinue the sotalol currently as she has had such a good response up until recently. However, if she continues to have atrial fibrillation or has sustained atrial fibrillation may need to reconsider our strategy. Alternatives would include a switch to amiodarone or adoption of a rate control strategy. I would favor the rate control strategy given her lack of symptoms. She is in atrial fibrillation this morning but has not had any symptoms of fluttering. Her rates continue to be high. She was started on diltiazem which seems reasonable. I think we will see how she responds to few more doses prior to recommending any additional change in her medical therapy. She will need to continue Xarelto indefinitely. Unclear for beta agonists is playing a role. Likely not. However, a different inhaler such as Xopenex may be considered. (2) Coronary artery disease: Remote history of percutaneous intervention to the right coronary artery. No current symptoms suggestive of coronary ischemia or insufficiency. Markers are normal. (3) Mitral regurgitation: Moderate in 2017. Very soft murmur on examination. History of Present Illness Reason for Consultation: Atrial fibrillation Requesting Physician: Nitesh Attending Physician: Sloan Esparza DO History of Present Illness The patient is an 84-year-old woman with a history of paroxysmal atrial fibrillation and coronary artery disease previously undergone implantation of a dual-chamber permanent pacemaker. Patient was seen in our emergency room on the 14 July with symptoms of palpitations. She was discovered to be in atrial fibrillation and high ventricular rate. She was sent home and reportedly returned to a normal sinus rhythm on her own. She was seen in the outpatient setting 2 days ago at which point she was feeling well. However, it seems that last evening she again experienced a sense of fluttering which prompted her return to the emergency room. She was scanned discovered to be in atrial fibrillation with high ventricular rates and admitted to the hospital for observation. She has not report additional symptoms such as dyspnea or chest discomfort. Over the past few days she has been experiencing some muscle aches and pains. This includes some discomfort in the ribcage arm and back. Patient was recently diagnosed with a bronchitis and has been using an albuterol inhaler routine basis. She claims to be an active person who is able perform routine activity without limitations such as dyspnea or exertional chest discomfort. Outside of her recent episode she generally does not have symptoms of palpitations. She has not report dizziness or lightheadedness. No syncope. She has some mild lower extremity edema which is chronic and unchanged recently. At the time of my interview the patient claims to be feeling well. She is no longer aware of any fluttering was. She had a very brief and transient symptom of chest discomfort in the left lateral portion of her thorax earlier today. This resolved. No other symptoms of chest pain currently. She has been up to the bathroom without symptom. Allergies Allergy/AdvReac Type Severity Reaction Status Date / Time digoxin AdvReac Mild DIARRHEA Verified 07/24/19 23:55 Home Medications Home Medications Medication Instructions Recorded Confirmed Type aspirin 325 mg PO QAM 11/15/18 07/24/19 History rivaroxaban [Xarelto] 20 mg PO HS 11/15/18 07/24/19 History sotalol 240 mg tablet 240 mg PO BID #180 tab 02/10/19 07/24/19 Rx docusate sodium 100 mg capsule 100 mg PO DAILY 02/24/19 07/24/19 History multivitamin 1 tab PO DAILY 02/24/19 07/24/19 History polyethylene glycol 3350 17 17 g PO DAILY PRN gm 02/24/19 07/24/19 History gram/dose oral powder ascorbic acid (vitamin C) 500 mg 500 mg PO 2XWK tab 04/30/19 07/24/19 History tablet cholecalciferol (vitamin D3) 2,000 2,000 units PO 2XWK tab 04/30/19 07/24/19 History unit tablet nitroglycerin 0.4 mg sublingual 0.4 mg SL Q5M PRN #25 tab 04/30/19 07/24/19 History tablet alprazolam 0.25 mg tablet 0.25 mg PO BID PRN #30 tab 05/01/19 07/24/19 Rx sertraline 50 mg tablet 75 mg PO QAM #45 tab 05/06/19 07/24/19 Rx methocarbamol 750 mg tablet 750 mg PO BID PRN #60 tab 05/25/19 07/24/19 Rx furosemide 40 mg tablet 40 mg PO DAILY #90 tab 07/06/19 07/24/19 Rx potassium chloride 20 meq PO DAILY 07/14/19 07/24/19 History simvastatin 10 mg PO 3XWK 07/14/19 07/24/19 History albuterol sulfate 90 mcg/actuation 1 - 2 puffs INH QID #18 gm 07/20/19 07/24/19 Rx aerosol inhaler Patient History Medical History Acute myocardial infarction Atrial fibrillation (Chronic) Encounter for follow-up surveillance of endometrial cancer Endometrial adenocarcinoma s/p robotic TLH/BSO 2018 HTN (hypertension) (Chronic) Surgical History S/P hysterectomy S/P placement of cardiac pacemaker S/P tubal ligation Family History Father Colorectal cancer Mother Congestive heart failure Hypertension Ulcer Colorectal cancer Myocardial infarction Sister Coronary arteriosclerosis Endometriosis Lung cancer Social History Preferred Language: [place] Island[place] Communication Ability: Effective Visual Impairment: No Limitations Hearing Ability: Normal Beliefs That Will Affect Care: None marital status: Current Living Situation: Alone current occupational status: retired Other Information That Helps Us Care for You: No Feels Safe at Home: Yes Smoking Status: Never smoker Hx Alcohol Use: No Hx Substance Use: No Childhood Exposure to Second-Hand Smoke: No Dental Care, Regularly: No Physical Activity Frequency: Does not Exercise Seatbelt Use: always Sunscreen Use: No Review of Systems Review of Systems: All systems reviewed & are unremarkable except as noted in HPI & below Physical Exam Physical Exam: She is alert and oriented x3. Mood affect appear normal. She answered all questions appropriately. HEENT: Sclerae are anicteric. Pupils are equal and reactive to light and accommodation. Extraocular movements were intact. Neuro: Cranial nerves intact Neck: Examination of the submandibular region did not reveal any significant lymphadenopathy. Carotids are palpable bilaterally and free of bruits on auscultation. There was no evidence of jugular venous distention. The thyroid was not enlarged. Lungs: Lungs are clear to auscultation bilaterally. There are no rales wheezes or rhonchi. She has normal respiratory effort without use of accessory muscles. There is normal pulmonary excursion. Cardiac: The rhythm was irregular. S1 and S2 were normal. There are no murmurs on examination. The PMI was not markedly displaced on palpation. Abdomen: The abdomen was soft and nontender. Extremities: Patient has bilateral radial pulses that are equal in intensity. There is no evidence cyanosis or clubbing. There was no evidence of significant peripheral edema bilaterally. Skin: There are no rashes noted on examination today. Results & Data Vital Signs (Past 12 Hours) Vital Signs Temp Pulse Pulse Resp BP BP BP 07/25/19 07:41 36.5 C 112 H 18 132/84 07/25/19 07:24 69 07/25/19 04:12 36.9 C 115 H 19 127/88 07/25/19 01:21 36.8 C 117 H 20 140/82 07/25/19 01:15 112 H 07/25/19 00:21 104 H 20 137/86 07/24/19 23:33 99 H 20 131/86 07/24/19 23:07 82 18 121/85 07/24/19 22:33 07/24/19 22:30 123 H 19 119/89 Pulse Ox 07/25/19 07:41 91 07/25/19 07:24 07/25/19 04:12 92 07/25/19 01:21 94 07/25/19 01:15 07/25/19 00:21 95 07/24/19 23:33 93 07/24/19 23:07 93 07/24/19 22:33 94 07/24/19 22:30 94 Laboratory Results Abnormal Lab Results 07/24/19 07/24/19 07/25/19 22:45 22:45 08:14 WBC 7.92 RBC 4.43 Hgb 12.8 Hct 39.4 MCV 88.9 MCH 28.9 MCHC 32.5 RDW Std Deviation 44.6 RDW Coeff of Cem 13.6 Plt Count 161 MPV 10.9 H Immature Gran % (Auto) 0.1 Neut % (Auto) 60.6 Lymph % (Auto) 20.2 [place] % (Auto) 14.5 Eos % (Auto) 4.2 Baso % (Auto) 0.4 Immature Gran # (Auto) 0.01 Neut # (Auto) 4.80 Lymph # (Auto) 1.60 [place] # (Auto) 1.15 H Eos # (Auto) 0.33 Baso # (Auto) 0.03 Sodium 141 139 Potassium 3.7 3.8 Chloride 109 H 110 H Carbon Dioxide 26 23 Anion Gap 7.0 6.0 BUN 23 H 17 Creatinine 0.89 0.77 Est Cr Clr Drug Dosing 44.8 59.3 Est GFR ( Amer) 69.5 82.8 Est GFR (Non-Af Amer) 59.9 71.4 BUN/Creatinine Ratio 26.1 H 22.0 H Glucose 121 H 110 H Calcium 8.8 8.9 Phosphorus 2.8 Magnesium 2.1 2.3 Total Bilirubin 0.2 AST 19 ALT 19 Alkaline Phosphatase 85 Troponin I < 0.015 Total Protein 7.2 Albumin 3.0 L Globulin 4.2 H Albumin/Globulin Ratio 0.7 L TSH 2.260 Diagnostic Findings Echocardiogram performed in 2017 revealed preserved LV systolic function. Mode rate mitral regurgitation. Myocardial perfusion study performed in May 2017 did not reveal any evidence of infarct or ischemia. Preserved LV systolic function. I performed a complete device interrogation today of her dual-chamber permanent pacemaker. Two episodes of atrial fibrillation recently documented otherwise in her chart. Otherwise normal device function. ECG Additional Comments: Atrial fibrillation with rapid ventricular response PG Care Time/CCT Total # of Minutes Spent Total Time Spent with Patient: Total time spent is greater than 50% in coordination of care (as documented) at patient's floor/unit and/or counseling patient: Coding Level of Care Code 97243 OBS Care - Level 3 Diagnoses Paroxysmal atrial fibrillation I48.0 Coronary artery disease I25.10 Mitral regurgitation I34.0
--- NOTE | 2019-07-25 11:57 | Hospitalist Progress Note ---
Date of Service July 25, 2019 Assessment & Plan (1) Paroxysmal atrial fibrillation: - A. fib with RVR during this admission -- HR 120-140's over last 12 hours on telemetry. - Also evaluated in the ER on Jul 14, responded well to Lopressor IV. - Continue home Sotalol 240 mg BID; added Cardizem 30 mg TID, will continue to monitor response to med. - Continue home Xarelto 20 mg daily. - Cardiology consulted, appreciate input. May require transition to Amiodarone if no improvement. (2) Coronary artery disease: - Continue Simvastatin, Sotalol, Aspirin as prescribed. - Trop neg on admission, no evidence of cardiac ischemia at this time. (3) HTN (hypertension): - Continue Sotalol and Lasix as prescribed; also added Cardizem 30 mg TID. (4) Anxiety: - Continue Zoloft 75 mg daily as prescribed. - Xanax 0.25 mg BID prn. (5) Chronic pain: - Continue Robaxin BID prn. (6) DVT prophylaxis: - Continue home Xarelto. Dispo: Med/surg with tele for treatment of A. fib; discharge hopefully on Saturday pending improvement in rate control. Subjective Pt. describes feeling "quivery" on exam. She denies palpitations, chest pain, SOB, N/V, urinary retention. HR 120-140's on monitor, will continue to monitor response after starting PO Cardizem. Review of Systems Review of Systems: All systems reviewed & are unremarkable except as noted in HPI & below Constitutional: no fever, no chills, no fatigue, no weakness and no anorexia Respiratory: no cough, no dyspnea and no dyspnea on exertion Cardiovascular: no chest pain, no palpitations and no edema Gastrointestinal: no abdominal pain, no nausea, no vomiting and no constipation Genitourinary: no difficulty urinating Musculoskeletal: no back pain and no joint pain Integumentary: no non-healing lesions Physical Exam Physical Exam: General: Resting comfortably HEENT: NC/AT; PERRLA with EOMI; [place] conjunctiva, MMM. No erythema of posterior pharynx Neck: Supple and nontender Cardiac: Irregular, HR 120. Lungs: CTA bilaterally Abdomen: Bowel normoactive X 4; Nontender to palpation Extremities: Warm. No edema present Neuro: No focal weakness Skin: No rash Results & Data Vital Signs (Past 12 Hours) Vital Signs Temp Pulse Pulse Resp BP BP Pulse Ox 07/25/19 07:41 36.5 C 112 H 18 132/84 91 07/25/19 07:24 69 07/25/19 04:12 36.9 C 115 H 19 127/88 92 07/25/19 01:21 36.8 C 117 H 20 140/82 94 07/25/19 01:15 112 H 07/25/19 00:21 104 H 20 137/86 95 Laboratory Results 07/25/19 07/24/19 07/24/19 Range/Units 08:14 22:45 22:45 WBC 7.92 (4.8-10.8) K/uL RBC 4.43 (4.2-5.4) M/uL Hgb 12.8 (12.0-16.0) g/dL Hct 39.4 (37-47) % MCV 88.9 (80-100) fL MCH 28.9 (25-34) pg MCHC 32.5 (32-36) g/dL RDW Std Deviation 44.6 (36.4-46.3) fL RDW Coeff of Cem 13.6 (11.5-14.5) % Plt Count 161 (130-400) K/uL MPV 10.9 H (7.4-10.4) fL Immature Gran % (Auto) 0.1 % Neut % (Auto) 60.6 % Lymph % (Auto) 20.2 % [place] % (Auto) 14.5 % Eos % (Auto) 4.2 % Baso % (Auto) 0.4 % Immature Gran # (Auto) 0.01 (0.00-0.02) K/uL Neut # (Auto) 4.80 (1.4-6.5) K/uL Lymph # (Auto) 1.60 (1.2-3.4) K/uL [place] # (Auto) 1.15 H (0.11-0.59) K/uL Eos # (Auto) 0.33 (0-0.5) K/uL Baso # (Auto) 0.03 (0-0.2) K/uL Sodium 139 141 (136-145) mmol/L Potassium 3.8 3.7 (3.5-5.1) mmol/L Chloride 110 H 109 H (98-107) mmol/L Carbon Dioxide 23 26 (21-32) mmol/L Anion Gap 6.0 7.0 (3-11) BUN 17 23 H (7-18) mg/dl Creatinine 0.77 0.89 (0.6-1.2) mg/dl Est Cr Clr Drug Dosing 59.3 44.8 ml/min Est GFR ( Amer) 82.8 69.5 Est GFR (Non-Af Amer) 71.4 59.9 BUN/Creatinine Ratio 22.0 H 26.1 H (10-20) Glucose 110 H 121 H (70-99) mg/dl Calcium 8.9 8.8 (8.5-10.1) mg/dl Phosphorus 2.8 (2.5-4.9) mg/dl Magnesium 2.3 2.1 (1.8-2.4) mg/dl Total Bilirubin 0.2 (0.2-1) mg/dl AST 19 (15-37) U/L ALT 19 (12-78) U/L Alkaline Phosphatase 85 (45-117) U/L Troponin I < 0.015 (0-0.045) ng/ml Total Protein 7.2 (6.4-8.2) gm/dl Albumin 3.0 L (3.4-5.0) gm/dl Globulin 4.2 H (2.5-4.0) gm/dl Albumin/Globulin Ratio 0.7 L (0.9-2) TSH 2.260 (0.300-4.500) uIu/ml PG Care Time/CCT Total # of Minutes Spent Total Time Spent with Patient: Total time spent is greater than 50% in coordination of care (as documented) at patient's floor/unit and/or counseling patient: Coding Level of Care Code None Diagnoses Paroxysmal atrial fibrillation I48.0 Coronary artery disease I25.10 HTN (hypertension) I10 Anxiety F41.9 Chronic pain G89.29 DVT prophylaxis Z29.9
--- NOTE | 2019-07-25 18:22 | Emergency Department Note ---
ED Visit Note Date of Service: 07/24/19 Patient was seen and evaluated at the bedside w/ Laila Perez PA-C . Please see their note for history, physical, details, and disposition. Patient presented with palpitations does have a history of A. fib currently anticoagulated. Patient did receive a dose of Cardizem. Patient was subsequently admitted to the medicine service. Patient is on Xarelto. .
--- NOTE | 2019-07-25 20:10 | Electrocardiogram Report ---
Test Reason : Blood Pressure : / mmHG Vent. Rate : 119 BPM Atrial Rate : 133 BPM P-R Int : 000 ms QRS Dur : 112 ms QT Int : 354 ms P-R-T Axes : 000 -07 -18 degrees QTc Int : 497 ms Atrial fibrillation with rapid ventricular response Inferior infarct (cited on or before 11-JAN-2013) Abnormal ECG When compared with ECG of 14-JUL-2019 04:59, No significant change was found Confirmed by Alan Valle ([id number]) on 07/25/2019 8:10:28 PM Referred By: REFERRED SELF Confirmed By:Israel Valle
[2019-07-25] MEDS ORDERED: RIVAROXABAN 20 MG TAB PO SCH (21:00)
--- NOTE | 2019-07-26 04:12 | Billing Data ---
Date of Service July 26, 2019 Coding Level of Care Code 03818 OBS Care - Level 3
[2019-07-26 05:49] LABS: Hematocrit (blood only) 39.1 % (37-47); Hemoglobin 12.6 g/dL (12.0-16.0); Mean Corpuscular Hemoglobin 28.6 pg (25-34); Mean Corpuscular Hgb Conc 32.2 g/dL (32-36); Mean Corpuscular Volume 88.7 fL (80-100); Mean Platelet Volume 10.7 fL (7.4-10.4); Platelet Count 154 K/uL (130-400); RDW Coefficient of Variation 13.7 % (11.5-14.5); RDW Standard Deviation 44.4 fL (36.4-46.3); Red Blood Count 4.41 M/uL (4.2-5.4); White Blood Count 6.21 K/uL (4.8-10.8)
[2019-07-26 06:19] LABS: BUN Creatinine Ratio 24.1 (10-20); Calcium 8.5 mg/dl (8.5-10.1); Creatinine Clr Calc Pharmacy 53.1 ml/min; Est GFR (African American) 72.4; Est GFR (Non-African American) 62.5; Magnesium 2.4 mg/dl (1.8-2.4); Potassium 3.5 mmol/L (3.5-5.1)
[2019-07-26] MEDS: ASPIRIN 325 MG ECTAB PO SCH (08:24)
[2019-07-26] MEDS: dilTIAZem HCL 30 MG TAB PO SCH (08:25)
[2019-07-26] MEDS: SERTRALINE HCL 50 MG TABLET PO SCH (08:25)
[2019-07-26] MEDS: SOTALOL HCL 80 MG TAB PO SCH (08:25)
[2019-07-26] MEDS: POTASSIUM CHLORIDE 20 MEQ TABCR PO SCH (08:26)
[2019-07-26] MEDS: DOCUSATE SODIUM 100 MG CAP PO SCH (08:26)
[2019-07-26] MEDS: MULTIVITAMIN TAB PO SCH (08:26)
--- NOTE | 2019-07-26 08:56 | Cardiology Progress Note ---
Date of Service July 26, 2019 Assessment & Plan (1) Paroxysmal atrial fibrillation: She converted back to a sinus rhythm around midnight. Her symptoms have resolved before that time and she seems to be unaware of the atrial fibrillation provided she has adequate rate control. She does have atrial therapies activated through her device and I also initiated atrial preference pacing in the hopes of reducing additional episodes of atrial fibrillation. Currently she is in a paced rhythm. Whether she will be able to maintain sinus rhythm long- term on her current dose of sotalol is unclear. However, she did have a lot of success with sotalol in the past and I think is reasonable to continue her on this medication currently. I would agree with intensifying her rate control with the addition of diltiazem. She will continue on anticoagulation. (2) Coronary artery disease: Remote history of percutaneous intervention to the right coronary artery. No current symptoms suggestive of coronary ischemia or insufficiency despite high heart rates at times. (3) Mitral regurgitation: Moderate in 2017. Very soft murmur on examination. This can be followed in the outpatient setting. Subjective This morning the patient claims to be feeling well. She is been ambulatory without symptoms of dyspnea or chest pain. No sense of recurrent palpitation. No dizziness or lightheadedness. Review of Systems Review of Systems: Per HPI Physical Exam Physical Exam: She is alert and oriented x3. Mood affect appear normal. She answered all questions appropriately. HEENT: Sclerae are anicteric. Pupils are equal and reactive to light and accommodation. Extraocular movements were intact. Neuro: Cranial nerves intact Lungs: Lungs are clear to auscultation bilaterally. There are no rales wheezes or rhonchi. She has normal respiratory effort without use of accessory muscles. There is normal pulmonary excursion. Cardiac: The rhythm was regular. S1 and S2 were normal. There are no murmurs on examination. The PMI was not markedly displaced on palpation. Abdomen: The abdomen was soft and nontender. Extremities: Patient has bilateral radial pulses that are equal in intensity. There is no evidence cyanosis or clubbing. There was no evidence of significant peripheral edema bilaterally. Skin: There are no rashes noted on examination today. Results & Data Vital Signs (Past 12 Hours) Vital Signs Temp Pulse Pulse Resp BP Pulse Ox 07/26/19 07:20 36.9 C 67 73 18 117/73 93 07/26/19 04:48 36.7 C 70 18 112/71 93 07/26/19 00:00 86 07/25/19 23:00 36.6 C 81 18 104/73 91 Laboratory Results Abnormal Lab Results 07/25/19 07/26/19 07/26/19 08:14 05:30 05:30 WBC 6.21 RBC 4.41 Hgb 12.6 Hct 39.1 MCV 88.7 MCH 28.6 MCHC 32.2 RDW Std Deviation 44.4 RDW Coeff of Cem 13.7 Plt Count 154 MPV 10.7 H Sodium 139 142 Potassium 3.8 3.5 Chloride 110 H 111 H Carbon Dioxide 23 27 Anion Gap 6.0 4.0 BUN 17 21 H Creatinine 0.77 0.86 Est Cr Clr Drug Dosing 59.3 53.1 Est GFR ( Amer) 82.8 72.4 Est GFR (Non-Af Amer) 71.4 62.5 BUN/Creatinine Ratio 22.0 H 24.1 H Glucose 110 H 87 Calcium 8.9 8.5 Phosphorus 2.8 Magnesium 2.3 2.4 PG Care Time/CCT Total # of Minutes Spent Total Time Spent with Patient: Total time spent is greater than 50% in coordination of care (as documented) at patient's floor/unit and/or counseling patient: Coding Level of Care Code 91443 Subseq Hosp Care Lvl 3 Diagnoses Paroxysmal atrial fibrillation I48.0 Coronary artery disease I25.10 Mitral regurgitation I34.0
[2019-07-26] MEDS ORDERED: dilTIAZem ER 180 MG CAPCR PO SCH (09:00)
[2019-07-26] MEDS ORDERED: dilTIAZem ER 120 MG CAPCR PO ONE (12:00)
--- NOTE | 2019-07-26 12:41 | Discharge Summary ---
Date of Service July 26, 2019 Admission HPI Per Admitting Provider Ly Baez is a very pleasant woman with a past medical history significant for Paroxysmal Atrial Fibrillation (On sotalol 240 mg BID, and rivaroxaban for anticoagulation), CAD with heart attack and stent placement a little over ten years ago, Anxiety, and osteoarthritis who is here today for atrial fibrillation with RVR. She was reading the newspaper this afternoon shortly after taking her sotalol and ventolin inhaler and noticed that she felt palpitations, she put on her home pulse ox and noted that she was in RVR and called an ambulance. She is currently otherwise asymptomatic and has denied any chest pain, shortness of breath beyond her baseline, syncope/presyncope, any change in her cardiovascular fitness, increased leg swelling, or any other concerning symptoms. On presentation to ED, EKG showing A fib rvr, negative troponin, vital signs otherwise stable, received one time 10 mg push of IV carvedilol and rate dropped to 90's She was recently placed on albuterol for a wheeze noted at her PCP's office. She was just in the emergency department for a similar presentation and was given IV lopressor and got her rate under control then went home and followed with her primary care provider and caridology who made no changes to her current regimen. She is already on sotalol 240 mg BID for rate control and rivaroxaban for anticoagulation. She denies any history of orthostatic symptoms, falls or lightheadedness. She denies any cigarette smoking, or drug use. She drinks alcohol only occasionally and nothing in the last month. Lives alone at home since of her a year and a half ago and has no concerns about living alone. Large family with multiple children and grand/great grandchildren in the area. Admission Exam Per Admitting Provider Constitutional: Well appearing 84 year old woman who looks younger than stated age is resting comfortably in bed in no acute distress Eyes: EOMMI, PERRLA, Neck: No masses detected, no thyromegaly Respiratory: No increased work of breathing, breath sounds vesicular in all lung bone Cardiovascular: Irregularly irregulary rhythm, rate in the mid 90's jumping as high as 110's, peripheral pulses strong, 2+ pitting lower limb edema patient says is at her baseline GI: Abdomen soft, nontender Skin: Several small areas of bruising on arms and legs Principal Diagnosis Atrial Fibrillation with RVR Discharge Exam General: Resting comfortably HEENT: NC/AT; PERRLA with EOMI; [place] conjunctiva, MMM. No erythema of posterior pharynx Neck: Supple and nontender Cardiac: Irregular, rate controlled. Lungs: CTA bilaterally Abdomen: Bowel normoactive X 4; Nontender to palpation Extremities: Warm. No edema present Neuro: No focal weakness Skin: No rash Discharge Data Allergies Allergy/AdvReac Type Severity Reaction Status Date / Time digoxin AdvReac Mild DIARRHEA Verified 07/24/19 23:55 Consultations 07/24/19 23:32 ED Decision to Admit Stat 07/25/19 01:13 Consult Cardiology Routine Hospital Course (1) Paroxysmal atrial fibrillation: A. fib with RVR during this admission -- HR 120-140's, now improved to 60's on monitor with sinus rhythm paced. Evaluated in the ER on Jul 14, responded well to Lopressor IV. Continued home Sotalol 240 mg BID. Added Cardizem 30 mg TID, responded well to med. Received Cardizem ER 120 mg prior to discharge, will start Cardizem ER 180 mg fontaine on 07/27. Continued home Xarelto 20 mg daily. Cardiology consulted, appreciate input. F/u as outpatient. (2) Coronary artery disease: Continued Simvastatin, Sotalol, Aspirin as prescribed. Trop neg on admission, no evidence of cardiac ischemia. (3) HTN (hypertension): Continued Sotalol and Lasix as inpatient; also added Cardizem 180 mg daily. BUN trending up on day of discharge -- advised to hold Lasix over next 48 hours then resume on Saturday. (4) Anxiety: Continued Zoloft 75 mg daily as prescribed. Xanax 0.25 mg BID prn. (5) Chronic pain: Continued Robaxin BID prn. (6) DVT prophylaxis: Continued home Xarelto. Discharged to home on 07/26/19. Total Time Total Time Spent Total Time Spent (In Minutes): >30 minutes Total Time Includes: Examination of the Patient, Discharge Planning, Medication Reconciliation, Communication With Other Providers and Other Discharge Plan Discharge Items Patient Disposition: Home - Self-Care Reason For Visit: ATRIAL FIBRILLATION Discharge Diagnosis: Atrial Fibrillation Condition on Discharge: Good Goals: You have been hospitalized for an acute medical problem. During your stay at [facility], we have made an effort to correct the problem that brought you to the hospital while keeping you as comfortable as possible. Medications were used to bring your condition under control and your discharge instructions will include directions for any medications you should take after leaving the hospital. Please make sure you see your Primary Care Provider as part of your follow up plan. Activity: As commented below Exercise/Sports: Gradually increase as tolerated Non-emergency contact: Primary Care Provider and Environmental Educator Call non-emergency contact if: you have any medication questions, your symptoms worsen and you have a fever Follow-up/Referrals: Matt Saldaña, [Primary Care Provider] - Diet: Heart Healthy Addtl Attending Provider Instructions: 1. Atrial Fibrillation with RVR * Heart rate is now improved. * Please continue Sotalol 240 mg twice daily & Xarelto 20 mg daily as prescribed. * Please take Cardizem 180 mg daily in the morning -- your first dose will need to be administered in the morning on Saturday07/27/19. * Prescription for Cardizem was sent to [facility] on [address]. * You will need to monitor blood pressure at home if you develop dizziness -- Cardizem can lead to decreased blood pressure. 2. Lower extremity edema * Please hold Lasix dose on Saturday and Saturday of this week due to dehydration. * You can resume Lasix dose on Saturday. 3. Please schedule appointment with your PCP in 7-10 days to discuss this hospital admission. 4. Please schedule appointment with your commodity buyer over the next 2-3 weeks to discuss cardiac medications/A. fib management. Pending Studies at Discharge: No Stand-Alone Forms: My [facility] Medications and DC Order Prescriptions: New diltiazem HCl [Tiazac] 180 mg Capsule,Extended Release 24 Hr 180 mg PO QAM 30 Days Qty: 30 RF: 2 Continued sotalol 240 mg tablet 240 mg PO BID Qty: 180 RF: 3 sertraline 50 mg tablet 75 mg PO QAM Qty: 45 RF: 3 methocarbamol [Robaxin-750] 750 mg tablet 750 mg PO BID PRN (Reason: Pain) Qty: 60 RF: 1 docusate sodium [Colace] 100 mg capsule 100 mg PO DAILY RF: 0 polyethylene glycol 3350 17 gram/dose powder 17 g PO DAILY PRN (Reason: Constipation) RF: 0 multivitamin [Daily Multi-Vitamin] tablet 1 tab PO DAILY RF: 0 ascorbic acid (vitamin C) 500 mg tablet 500 mg PO 2XWK RF: 0 cholecalciferol (vitamin D3) 2,000 unit tablet 2,000 units PO 2XWK RF: 0 nitroglycerin 0.4 mg tablet, sublingual 0.4 mg SL Q5M PRN (Reason: chest pain) Qty: 25 RF: 0 albuterol sulfate 90 mcg/actuation HFA aerosol inhaler 1 - 2 puffs INH QID Qty: 18 RF: 2 alprazolam 0.25 mg tablet 0.25 mg PO BID PRN (Reason: Anxiety) Qty: 30 RF: 0 potassium chloride 20 mEq tablet,ER particles/crystals 20 meq PO DAILY RF: 0 simvastatin 10 mg tablet 10 mg PO 3XWK RF: 0 aspirin 325 mg Tablet 325 mg PO QAM RF: 0 Xarelto 20 mg tablet 20 mg PO HS RF: 0 furosemide 40 mg tablet 40 mg PO DAILY Qty: 90 RF: 1 Discharge Orders: Discharge Order (Routine); Ordered 07/26/19 Ordered By: Radha Gustafson Admission Data Admit Date/Time: 07/25/19 00:25 Attending Provider: Sloan Esparza Admit Provider: Sigifredo Dowling Primary Care Provider: Matt Saldaña Other Providers: Curly Lemus ; Torres Bailey Other Interventions: Discharge Summary Assessment (RN) Last Done: 07/26/19 11:36 DC Date/Time DO NOT enter until pt leaves facility: 07/26/19 11:57 Supervising Physician Co-Signing Physician Notes Attending note: patient seen and examined with Radha Gustafson PA-C. I agree with her discharge summary. I personally reviewed the labs and imaging findings. patient feeling well today, HR is well controlled the patient denies chest pain/pressure, dyspnea she is eating well - Atrial fibrillation with RVR: rates well controlled with the addition of Diltiazem appreciate input from Dr. Valle will d/c home on Sotalol, Diltiazem CD 180mg qAM continue Xarelto for anticoagulation Coding Level of Care Code D/C Day Management >30 mins Diagnoses Paroxysmal atrial fibrillation I48.0 Coronary artery disease I25.10 HTN (hypertension) I10 Anxiety F41.9 Chronic pain G89.29 DVT prophylaxis Z29.9
--- NOTE | 2019-07-26 18:13 | Electrocardiogram Report ---
Test Reason : Blood Pressure : / mmHG Vent. 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 rate has decreased BY 58 BPM Non-specific change in ST segment in Lateral leads Confirmed by Alan Valle [id number]) on 07/26/2019 6:13:04 PM Referred By: REFERRED SELF Confirmed By:Israel Valle
[2019-07-27] MEDS ORDERED: dilTIAZem ER 180 MG CAPCR PO SCH (09:00)
[2019-07-27] MEDS ORDERED: SIMVASTATIN 10 MG TAB PO SCH (21:00)
== END 2019-07-26 11:57 | disposition home or self-care (01) ==
LOC: 2N 22:13 → ED 22:13 → SUATTDRO 07-25 00:25 → 2N 07-25 00:45

== ENCOUNTER 2019-09-21 19:04 | Inpatient (IN) ==
--- NOTE | 2019-09-21 19:41 | Emergency Department Note ---
History of Present Illness General Chief Complaint: Chest Pain Stated Complaint: CHEST PAIN Time Seen by Provider: 09/21/19 19:18 Source: patient Mode of arrival: EMS Limitations: no limitations History of Present Illness Provider Complaint: chest pain Onset (ago): hour(s) 3 Duration: intermittent Onset: during rest Pain Location: left chest Severity: mild Maximum Pain Intensity: 0 Quality: + sharp Relieved By: + nothing Exacerbated By: + movement Context: no recent illness and no trauma/injury Associated symptoms: no nausea, no vomiting, no syncope and no cough Treatments prior to arrival: aspirin and nitroglycerin This is an 84-year-old female who presents to the ED with a chief complaint of a sharp chest pain that is in the left chest that is worse with movement that started around 4 PM. She states that earlier she felt cold as well. The patient was brought here by EMS because she was concerned about it. The patient was transported here by EMS. They did give her aspirin and nitroglycerin. She states that she is currently pain-free. She is unsure if it was the nitro. Her pain is worse with movement. She has a twelve-lead EKG that shows a atrial paced rhythm at a rate of 82 without acute ischemic changes. The patient's vital signs reveal some mild hypertension. Her physical exam was otherwise unremarkable.She is chronically on Xarelto for A. fib. She also has a pacemaker. The patient does report a chronic cough and dyspnea on exertion as well. Related Data On Oral Contraceptives: No Home Medications Home Medications Medication Instructions Recorded Confirmed Type Xarelto 20 mg PO .UD 11/15/18 09/21/19 History aspirin 325 mg PO QAM 11/15/18 09/21/19 History sotalol 240 mg tablet 240 mg PO BID #180 tab 02/10/19 09/21/19 Rx docusate sodium 100 mg capsule 100 mg PO DAILY PRN 02/24/19 09/21/19 History multivitamin 1 tab PO 2XWK 02/24/19 09/21/19 History polyethylene glycol 3350 17 17 g PO DAILY PRN gm 02/24/19 09/21/19 History gram/dose oral powder ascorbic acid (vitamin C) 500 mg 500 mg PO 2XWK tab 04/30/19 09/21/19 History tablet cholecalciferol (vitamin D3) 50 2,000 units PO 2XWK tab 04/30/19 09/21/19 History mcg (2,000 unit) tablet alprazolam 0.25 mg tablet 0.25 mg PO BID PRN #30 tab 05/01/19 09/21/19 Rx methocarbamol 750 mg tablet 750 mg PO BID PRN #60 tab 05/25/19 09/21/19 Rx simvastatin 10 mg PO 3XWK 07/14/19 09/21/19 History furosemide 40 mg PO DAILY #90 tab 07/26/19 09/21/19 Rx potassium chloride 20 mEq 20 meq PO DAILY #30 tab 07/31/19 09/21/19 Rx tablet,extended release(part/cryst) albuterol sulfate 90 mcg/actuation 1 - 2 puffs INH QID PRN gm 08/04/19 09/21/19 History aerosol inhaler sertraline 50 mg tablet 75 mg PO QAM #45 tab 09/02/19 09/21/19 Rx diltiazem HCl 180 mg PO DAILY 09/21/19 09/21/19 History vitamin E 200 unit PO 2XWK 09/21/19 09/21/19 History Allergies Allergy/AdvReac Type Severity Reaction Status Date / Time digoxin AdvReac Mild DIARRHEA Verified 08/04/19 09:18 Past Med/Surg History Medical History Acute myocardial infarction Atrial fibrillation (Chronic) Encounter for follow-up surveillance of endometrial cancer Endometrial adenocarcinoma s/p robotic TLH/BSO 2017 HTN (hypertension) (Chronic) Surgical History S/P hysterectomy S/P placement of cardiac pacemaker S/P tubal ligation Family History Father Colorectal cancer Mother Congestive heart failure Hypertension Ulcer Colorectal cancer Myocardial infarction Sister Coronary arteriosclerosis Endometriosis Lung cancer Denies family history of Ovarian cancer Prostate cancer Breast cancer Social History Preferred Language: [place] Communication Ability: Effective Visual Impairment: No Limitations Hearing Ability: Normal Beliefs That Will Affect Care: None marital status: Current Living Situation: Alone current occupational status: retired Feels Safe at Home: Yes Smoking Status: Never smoker Hx Alcohol Use: No Hx Substance Use: No Childhood Exposure to Second-Hand Smoke: No Dental Care, Regularly: No Physical Activity Frequency: Does not Exercise Seatbelt Use: always Sunscreen Use: No Review of Systems A total of 10 systems reviewed and were otherwise negative Physical Exam Vital Signs Vital Signs - 24 hr 09/21/19 19:09 09/21/19 19:58 09/21/19 20:00 Temperature 36.6 C Temperature Source Oral Pulse Rate 78 78 72 Pulse Rate [Exercises] Pulse Rate [Recovery] Pulse Rate from SpO2 Sensor 73 70 Pulse Rhythm Irregular Respiratory Rate 16 20 19 Respiratory Rate [Exercises] Respiratory Rate [Recovery] Respiratory Effort / Characteristics Non-Labored Spontaneous Respiratory Depth Normal Blood Pressure 144/92 H 141/70 H 137/73 Blood Pressure Mean 109 93 87 Blood Pressure Position Sitting Pulse Oximetry 92 93 92 Pulse Oximetry [Exercises] Pulse Oximetry [Recovery] Oxygen Delivery Method Room Air Room Air Room Air Oxygen Flow Rate Sepsis Recent Fever Within 48 Hours No Sepsis Action Taken by Nursing No Action Required Oxygen Flow Rate - Titration Pulse Oximetry Post Tiitration 09/21/19 20:58 09/21/19 21:00 09/21/19 21:29 Temperature Temperature Source Pulse Rate 79 86 Pulse Rate [Exercises] 86 Pulse Rate [Recovery] 90 Pulse Rate from SpO2 Sensor 79 88 Pulse Rhythm Respiratory Rate 21 28 H Respiratory Rate [Exercises] 28 H Respiratory Rate [Recovery] 24 Respiratory Effort / Characteristics Respiratory Depth Blood Pressure 132/78 154/83 H Blood Pressure Mean 98 109 Blood Pressure Position Pulse Oximetry 92 90 Pulse Oximetry [Exercises] 88 L Pulse Oximetry [Recovery] 86 L Oxygen Delivery Method Room Air Room Air Room Air Oxygen Flow Rate Sepsis Recent Fever Within 48 Hours Sepsis Action Taken by Nursing Oxygen Flow Rate - Titration Pulse Oximetry Post Tiitration 09/21/19 21:44 Temperature Temperature Source Pulse Rate Pulse Rate [Exercises] Pulse Rate [Recovery] Pulse Rate from SpO2 Sensor Pulse Rhythm Respiratory Rate Respiratory Rate [Exercises] Respiratory Rate [Recovery] Respiratory Effort / Characteristics Respiratory Depth Blood Pressure Blood Pressure Mean Blood Pressure Position Pulse Oximetry 82 L Pulse Oximetry [Exercises] Pulse Oximetry [Recovery] Oxygen Delivery Method Nasal Cannula Oxygen Flow Rate 0 Sepsis Recent Fever Within 48 Hours Sepsis Action Taken by Nursing Oxygen Flow Rate - Titration 2 Pulse Oximetry Post Tiitration 95 CONSTITUTIONAL/VITAL SIGNS: Reviewed / noted above. GENERAL: Non-toxic in appearance. INTEGUMENTARY: Warm, dry, and [place]. HEAD: Normocephalic. EYES: without scleral icterus or trauma. ENT/OROPHARYNX: clear and moist. LYMPHADENOPATHY/NECK: Is supple without lymphadenopathy or meningismus. RESPIRATORY: Lungs clear and equal. CARDIOVASCULAR: Regular rate and rhythm. GI/ABDOMEN: Soft and nontender. No organomegaly or pulsatile mass. No rebound or guarding. Normal bowel sounds. EXTREMITIES: Warm and well perfused. BACK: No CVA tenderness. NEUROLOGICAL: Intact without focal deficits. PSYCHIATRIC: normal affect. MUSCULOSKELETAL: Normally developed with good muscle tone. TRIAGE NURSING DOCUMENTATION REVIEWED. Course Administered Medications Ioversol (Optiray 320 125ml) 118 ml IV ONCE PRN PRN Reason: Interaction Checking Stop: 09/25/19 21:25 Last Admin: 09/21/19 21:27 Dose: 118 ml Documented by: [id number] Discontinued Medications Ceftriaxone Sodium (Rocephin) 1,000 mg in 50 mls @ 100 mls/hr IV NOW STA Stop: 09/21/19 21:58 Last Admin: 09/21/19 21:36 Dose: 100 mls/hr Documented by: [id number] Medical Decision Making Differential Diagnosis The differential that was considered includes acute myocardial infarction, acute coronary syndrome, myocarditis, pericarditis, pericardial effusions /tamponade, esophageal perforation, thoracic aortic dissection, pulmonary embolism, pneumonia, pneumothorax, pancreatitis, shingles, acute cholecystitis, perforated abdominal viscus. Medical Records Attestation: I reviewed the patient's medical records. Home Medications Current Medication List: was personally reviewed by me Laboratory Data Attestation: I reviewed the patient's lab results. Result diagrams: 09/21/19 18:55 09/21/19 18:55 Labs: Lab Results 09/21/19 09/21/19 09/21/19 Range/Units 18:55 18:55 18:55 WBC 11.83 H (4.8-10.8) K/uL RBC 4.43 (4.2-5.4) M/uL Hgb 12.4 (12.0-16.0) g/dL Hct 38.7 (37-47) % MCV 87.4 (80-100) fL MCH 28.0 (25-34) pg MCHC 32.0 (32-36) g/dL RDW Std Deviation 47.4 H (36.4-46.3) fL RDW Coeff of Cem 14.7 H (11.5-14.5) % Plt Count 242 (130-400) K/uL MPV 11.3 H (7.4-10.4) fL Immature Gran % (Auto) 0.3 % Neut % (Auto) 78.5 % Lymph % (Auto) 7.4 % [place] % (Auto) 11.7 % Eos % (Auto) 1.8 % Baso % (Auto) 0.3 % Immature Gran # (Auto) 0.03 H (0.00-0.02) K/uL Neut # (Auto) 9.30 H (1.4-6.5) K/uL Lymph # (Auto) 0.87 L (1.2-3.4) K/uL [place] # (Auto) 1.38 H (0.11-0.59) K/uL Eos # (Auto) 0.21 (0-0.5) K/uL Baso # (Auto) 0.04 (0-0.2) K/uL PT 15.3 H (9.0-12.0) Seconds INR 1.5 H (0.9-1.1) APTT 41.6 H (21.0-31.0) Seconds PTT Ratio 1.5 Sodium 135 L (136-145) mmol/L Potassium 4.1 (3.5-5.1) mmol/L Chloride 103 (98-107) mmol/L Carbon Dioxide 26 (21-32) mmol/L Anion Gap 6.0 (3-11) BUN 23 H (7-18) mg/dl Creatinine 0.95 (0.6-1.2) mg/dl Est Cr Clr Drug Dosing 46.6 ml/min Est GFR ( Amer) 64.2 Est GFR (Non-Af Amer) 55.4 BUN/Creatinine Ratio 23.8 H (10-20) Glucose 123 H (70-99) mg/dl Calcium 9.5 (8.5-10.1) mg/dl Total Bilirubin 0.4 (0.2-1) mg/dl AST 62 H (15-37) U/L ALT 41 (12-78) U/L Alkaline Phosphatase 107 (45-117) U/L Troponin I < 0.015 (0-0.045) ng/ml Total Protein 7.8 (6.4-8.2) gm/dl Albumin 2.9 L (3.4-5.0) gm/dl Globulin 4.9 H (2.5-4.0) gm/dl Albumin/Globulin Ratio 0.6 L (0.9-2) Lipase 166 (73-393) U/L Imaging Data CT scan - chest: Radiologist's impression: IMPRESSION: 1. No evidence of pulmonary embolus. 2. Large developing right hilar mass confluent with adenopathy of the mediastinum and subcarinal region 3. Compressive atelectasis of components of the medial right upper lobe with considerable narrowing of the right lower lobe bronchus. 4. Probable diffuse hepatic metastatic change. ECG Data Attestation: I personally reviewed and interpreted this ECG as follows: Indication: chest pain Rate (beats per minute): 82 Rhythm: other (Paced ventricular rhythm at a rate of 82) Findings: + 1st degree AV block; no PVC, no ST elevation and no prolonged QT Blood Pressure Blood Pressure Findings: Elevated blood pressure MDM Narrative The patient presents as above with what appears to be an atypical chest pain. She states that it is sharp and worse with movement. Started around 4 PM where she first noticed that around 4 PM today. She is chronically on Xarelto for A. fib. The patient's vital signs are stable. Her physical exam was unremarkable and she is in no distress. She currently denies having the pain. The patient does report a chronic cough as well as exertional dyspnea. The patient's twelve-lead EKG shows no ischemic changes and a paced atrial rhythm. CBC is unremarkable. INR is 1.5. Complete metabolic panel was unremarkable. Troponin was negative. Chest x-ray did not show any clear infiltrates. The patient does not have any clinical findings to suggest pneumonia. Some hilar fullness was noted. Patient was told the results of the test. We did do an ambulatory pulse ox on the patient and her pulse ox dropped to 86 to 88% with ambulation. She does not use home oxygen. A CT scan of the chest was ordered to further evaluate the right lung and hilar mass. The patient was given empiric antibiotics for the possibility of pneumonia prior to the CT scan. Impression & Plan Atypical chest pain, Hypoxia, CAMARILLO (dyspnea on exertion), Metastatic cancer Discharge Plan Visit Data Chief Complaint: Chest Pain Stated Complaint: CHEST PAIN ED Provider: Med Carlos Discharge Problem: Atypical chest pain, Hypoxia, CAMARILLO (dyspnea on exertion), Metastatic cancer Patient Disposition: Being Evaluated by Hospitalist Condition: Good Discharge Instructions Activity Restrictions/Additional Instructions: Your test results today did not show any clear concerning cause for your symptoms. Follow-up with your doctor for further care and evaluation in 1-2 days if symptoms persist. Return to the emergency department for worsening or new symptoms or any concerns. You have been examined and treated today on an emergency basis only. This is not a substitute for, or an effort to provide, complete comprehensive medical care. It is impossible to recognize and treat all injuries or illnesses in a single emergency department visit. It is therefore important that you follow up closely with your doctor. Call as soon as possible for an appointment. Forms Stand Alone Forms: My [facility], Important Visit Information Prescriptions Prescriptions: No Action sotalol 240 mg tablet 240 mg PO BID Qty: 180 RF: 3 methocarbamol [Robaxin-750] 750 mg tablet 750 mg PO BID PRN (Reason: Pain) Qty: 60 RF: 1 potassium chloride 20 mEq tablet,ER particles/crystals 20 meq PO DAILY Qty: 30 RF: 5 sertraline 50 mg tablet 75 mg PO QAM Qty: 45 RF: 5 docusate sodium [Colace] 100 mg capsule 100 mg PO DAILY PRN (Reason: Constipation) RF: 0 polyethylene glycol 3350 17 gram/dose powder 17 g PO DAILY PRN (Reason: Constipation) RF: 0 multivitamin [Daily Multi-Vitamin] tablet 1 tab PO 2XWK RF: 0 ascorbic acid (vitamin C) 500 mg tablet 500 mg PO 2XWK RF: 0 cholecalciferol (vitamin D3) 2,000 unit tablet 2,000 units PO 2XWK RF: 0 alprazolam 0.25 mg tablet 0.25 mg PO BID PRN (Reason: Anxiety) Qty: 30 RF: 0 albuterol sulfate 90 mcg/actuation HFA aerosol inhaler 1 - 2 puffs INH QID PRN (Reason: Shortness Of Breath Or Wheezing) RF: 0 simvastatin 10 mg tablet 10 mg PO 3XWK RF: 0 vitamin E 200 unit Capsule 200 unit PO 2XWK RF: 0 diltiazem HCl 180 mg capsule,extended release 24 hr 180 mg PO DAILY RF: 0 aspirin 325 mg Tablet 325 mg PO QAM RF: 0 Xarelto 20 mg tablet 20 mg PO .UD RF: 0 furosemide 40 mg tablet 40 mg PO DAILY Qty: 90 RF: 1 Referrals Referrals: Matt Saldaña, [Primary Care Provider] -
--- NOTE | 2019-09-21 19:50 | XRay Report ---
XR chest 1V portable CLINICAL HISTORY: Chest Pain dyspnea COMPARISON STUDY: 07/24/2019 FINDINGS: Mild increase in volume of what appears to be a right hilar mass. Lungs otherwise appear cl ear. Small right effusion. Right hilar prominence potentially is secondary to overlapping shadows in part. IMPRESSION: 1. Parenchymal infiltrate cannot mild a small right effusion. 2. Right hilar enlargement with superimposed atelectasis. When the current findings are resolved, a r epeat chest series or full CT of the chest would be indicated. ACT 112: Negative or not required by law. The above report was generated using voice recognition software. It may contain grammatical, syntax or spelling errors. Electronically signed by: Philippe Henry M.D. 09/21/2019 7:49 PM
[2019-09-21 19:56] LABS: INR 1.5 (0.9-1.1); Partial Thromboplastin Ratio 1.5; Partial Thromboplastin Time 41.6 Seconds (21.0-31.0); Prothrombin Time 15.3 Seconds (9.0-12.0)
[2019-09-21 20:02] LABS: Alanine Aminotransferase 41 U/L (12-78); Albumin Level 2.9 gm/dl (3.4-5.0); Aspartate Aminotransferase 62 U/L (15-37); BUN Creatinine Ratio 23.8 (10-20); Blood Urea Nitrogen 23 mg/dl (7-18); Calcium 9.5 mg/dl (8.5-10.1); Carbon Dioxide 26 mmol/L (21-32); Chloride 103 mmol/L (98-107); Creatinine Clr Calc Pharmacy 46.6 ml/min; Est GFR (African American) 64.2; Est GFR (Non-African American) 55.4; Glucose 123 mg/dl (70-99); Lipase 166 U/L (73-393); Potassium 4.1 mmol/L (3.5-5.1); Sodium 135 mmol/L (136-145)
[2019-09-21 20:07] LABS: Albumin Globulin Ratio 0.6 (0.9-2); Alkaline Phosphatase 107 U/L (45-117); Bilirubin,Total 0.4 mg/dl (0.2-1); Globulin 4.9 gm/dl (2.5-4.0); Total Protein 7.8 gm/dl (6.4-8.2); Troponin I < 0.015 ng/ml (0-0.045)
[2019-09-21 20:18] LABS: Basophils # (auto) 0.04 K/uL (0-0.2); Basophils % (auto) 0.3 %; Eosinophils # (auto) 0.21 K/uL (0-0.5); Eosinophils % (auto) 1.8 %; Hematocrit (blood only) 38.7 % (37-47); Hemoglobin 12.4 g/dL (12.0-16.0); Immature Granulocytes # (auto) 0.03 K/uL (0.00-0.02); Immature Granulocytes % (auto) 0.3 %; Lymphocytes # (auto) 0.87 K/uL (1.2-3.4); Lymphocytes % (auto) 7.4 %; Mean Corpuscular Volume 87.4 fL (80-100); Mean Platelet Volume 11.3 fL (7.4-10.4); Monocytes # (auto) 1.38 K/uL (0.11-0.59); Monocytes % (auto) 11.7 %; Neutrophils % (auto) 78.5 %; Platelet Count 242 K/uL (130-400); RDW Coefficient of Variation 14.7 % (11.5-14.5); RDW Standard Deviation 47.4 fL (36.4-46.3); Red Blood Count 4.43 M/uL (4.2-5.4); White Blood Count 11.83 K/uL (4.8-10.8)
[2019-09-21] MEDS ORDERED: OPTIRAY 320 125ml IV PRN (21:26)
[2019-09-21] MEDS ORDERED: cefTRIAXone SODIUM 1,000 MG/50 ML BAG IV STA (21:29)
[2019-09-21] MEDS ORDERED: LEVOFLOXACIN/D5W 500 MG/100 ML BAG IV SCH (21:30)
--- NOTE | 2019-09-21 21:35 | CT Scan Report ---
CT angio chest PE protocol CT DOSE: 509.52 mGy.cm HISTORY: Dyspnea dyspnea, hilar mass? Comparison PET scan 03/30/2013 TECHNIQUE: The thoracic aorta shows mild atherosclerotic change. There are no major pulmonary arterial filling defects. There is a significant right-sided effusion. There is atelectasis and volume loss of the right upper lobe. A probable right hilar mass confluent with adenopathy of the mid and inferior mediastinum. Ther e is considerable narrowing of the right lower lobe bronchus. The right upper lobe bronchus also show s considerable narrowing. The left lung is grossly clear. Limited evaluation of the upper abdomen suggest diffuse hepatic metastatic disease. IMPRESSION: 1. No evidence of pulmonary embolus. 2. Large developing right hilar mass confluent with adenopathy of the mediastinum and subcarinal josefina on 3. Compressive atelectasis of components of the medial right upper lobe with considerable narrowing o f the right lower lobe bronchus. 4. Probable diffuse hepatic metastatic change. ACT 112: Negative or not required by law. The above report was generated using voice recognition software. It may contain grammatical, syntax or spelling errors. Electronically signed by: Philippe Henry M.D. 09/21/2019 9:34 PM
--- NOTE | 2019-09-21 23:42 | History & Physical Report ---
Date of Service September 21, 2019 Assessment & Plan (1) Abnormal finding on CT scan: 84 yo F with PMH Atrial Fibrillation, CAD, Pacemaker, Anxiety, HTN, Osteoarthritis presents with concerns of CP, SOB found to have concerning CT findings of hilar mass and suspicion for PNA. Abnormal CXR/CT Findings of R Hilar Mass/PNA -Chest CTA: Large developing right hilar mass confluent with adenopathy of the mediastinum and subcarinal region. Compressive atelectasis of components of the medial right upper lobe with considerable narrowing of the right lower lobe bronchus. Probable diffuse hepatic metastatic change -will consult Pulmonology for bronch consideration -NPO at midnight -Likely CAP but will cont antibiotic regimen with IV Vanc/Zosyn for now -supplemental O2 as needed. Currently on 2L NC. Does not have any O2 requirement at home Chest Pain -admit to med tele -EKG: Atrial paced rhythm, no acute ischemic changes. Repeat daily EKG -initial trop neg. Will cont trend x2 q6h for r/o -ASA initiated. Pt takes low dose simvastatin 10mg 3x/wk -lower suspicion for ACS -nitroglycerin prn for chest pain -ECHO pending. Last done in 2012, reviewed -A1C, Lipid Panel in AM Paroxysmal Atrial Fibrillation -cont sotalol at 240 mg BID, diltiazem 180 mg -On xarelto 20mg for anticoagulation -seen 08/20/[address] Bailey with plans to increase her diltiazem to 240 mg daily; however, pt states that she does not believe it was ever sent to pharmacy and that she actually felt fine on the 180 mg, so she did not bother with it. -Will consult cardiology while pt is inpt to see if any changes need to be made CAD -Cont simvasatin, sotalol, ASA and prn nitro as above -troponin negative, x2 pending -No signs of acute ischemic process HTN -Diltiazem, Sotalol as above, Lasix 40 mg Anxiety -Cont Zoloft 75 mg daily, Xanax 0.25 mg BID prn Pain Continuing robaxin BID prn FEN/GI: NPO at midnight for possible bronch tomorrow DVT Prophylaxis: Xarelto Conditional Code: DNI only Dispo: Med tele History of Present Illness Chief Complaint: cp, sob Primary Care Provider: Matt Saldaña, DO 84 yo F with PMH Atrial Fibrillation, CAD with heart attack and stent placement a little over ten years ago, Pacemaker, Anxiety, HTN, Osteoarthritis presents to [facility] via EMS with concerns of left sided CP, SOB. 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 Pain described as sharp, intermittent with radiation into L shoulder. At worst 7/10 severity. Worse with movement, alleviated for the most part with rest. Pt did not try anything for this, but called EMS and they gave ASA and nitro with resolution of sxs. Pt also admits to [place], chills, cough, sore throat and decreased appetite. Otherwise denies diaphoresis, palpitations, orthopnea, syncope or near syncope, edema, F/N/V/D, rhinorrhea, abd pain, urinary sxs, recent travel, sick contacts. At the time of my evaluation, pt with no CP , resting comfortably with NC in place. Pt with no other acute concerns or complaints. In ED, an ambulatory pulse ox with sats ranging in 86-88%. Pt does not normally use any home O2 normally. EKG: Atrial paced rhythm, no acute ischemic changes CXR: Parenchymal infiltrate with mild small right effusion. Right hilar enlargement with superimposed atelectasis Chest CTA: No evidence of pulmonary embolus. Large developing right hilar mass confluent with adenopathy of the mediastinum and subcarinal region. Compressive atelectasis of components of the medial right upper lobe with considerable narrowing of the right lower lobe bronchus. Probable diffuse hepatic metastatic change. Pertinent Labs: WBC 11.8, Na 135, INR 1.5, Trop neg ER Course: IV Rocephin, IV Levaquin Family Hx: Father- colorectal ca. Mother- CHF, HTN, Colorectal ca Social: Denies Tobacco, Alcohol, Illicit Drug Use Surgical Hx: hysterectomy, placement of cardiac pacemaker, tubal ligation Allergies Allergy/AdvReac Type Severity Reaction Status Date / Time digoxin AdvReac Mild DIARRHEA Verified 08/04/19 09:18 Home Medications Home Medications Medication Instructions Recorded Confirmed Type Xarelto 20 mg PO .UD 11/15/18 09/21/19 History aspirin 325 mg PO QAM 11/15/18 09/21/19 History sotalol 240 mg tablet 240 mg PO BID #180 tab 02/10/19 09/21/19 Rx docusate sodium 100 mg capsule 100 mg PO DAILY PRN 02/24/19 09/21/19 History multivitamin 1 tab PO 2XWK 02/24/19 09/21/19 History polyethylene glycol 3350 17 17 g PO DAILY PRN gm 02/24/19 09/21/19 History gram/dose oral powder ascorbic acid (vitamin C) 500 mg 500 mg PO 2XWK tab 04/30/19 09/21/19 History tablet cholecalciferol (vitamin D3) 50 2,000 units PO 2XWK tab 04/30/19 09/21/19 History mcg (2,000 unit) tablet alprazolam 0.25 mg tablet 0.25 mg PO BID PRN #30 tab 05/01/19 09/21/19 Rx methocarbamol 750 mg tablet 750 mg PO BID PRN #60 tab 05/25/19 09/21/19 Rx simvastatin 10 mg PO 3XWK 07/14/19 09/21/19 History furosemide 40 mg PO DAILY #90 tab 07/26/19 09/21/19 Rx potassium chloride 20 mEq 20 meq PO DAILY #30 tab 07/31/19 09/21/19 Rx tablet,extended release(part/cryst) albuterol sulfate 90 mcg/actuation 1 - 2 puffs INH QID PRN gm 08/04/19 09/21/19 History aerosol inhaler sertraline 50 mg tablet 75 mg PO QAM #45 tab 09/02/19 09/21/19 Rx diltiazem HCl 180 mg PO DAILY 09/21/19 09/21/19 History vitamin E 200 unit PO 2XWK 09/21/19 09/21/19 History Past Med/Surg History Medical History Acute myocardial infarction Atrial fibrillation (Chronic) Encounter for follow-up surveillance of endometrial cancer Endometrial adenocarcinoma s/p robotic TLH/BSO 2018 HTN (hypertension) (Chronic) Surgical History S/P hysterectomy S/P placement of cardiac pacemaker S/P tubal ligation Family History Father Colorectal cancer Mother Congestive heart failure Hypertension Ulcer Colorectal cancer Myocardial infarction Sister Coronary arteriosclerosis Endometriosis Lung cancer Denies family history of Ovarian cancer Prostate cancer Breast cancer Social History Preferred Language: Taiwanese Communication Ability: Effective Visual Impairment: No Limitations Hearing Ability: Normal Lens Mounter Required: No Beliefs That Will Affect Care: None marital status: Current Living Situation: Alone current occupational status: retired Feels Safe at Home: Yes Smoking Status: Never smoker Hx Alcohol Use: No Hx Substance Use: No Childhood Exposure to Second-Hand Smoke: No Dental Care, Regularly: No Physical Activity Frequency: Does not Exercise Seatbelt Use: always Sunscreen Use: No Review of Systems Review of Systems: All systems reviewed & are unremarkable except as noted in HPI & below Physical Exam Constitutional: WD/WN, vitals as above Eyes: PERRL, conjunctivae normal, anicteric sclerae ENMT: external ear and nose normal, oropharynx normal Respiratory: normal respiratory effort; no respiratory distress and no labored breathing Cardiovascular: RRR, no murmur, no edema Gastrointestinal (Abdomen): normal bowel sounds, soft, nontender, no hepatosplenomegaly Skin: no rashes, warm and dry Psychiatric: A+Ox3, euthymic affect Results & Data Vital Signs (Past 12 Hours) Vital Signs Temp Pulse Pulse Pulse Resp Resp Resp 09/21/19 22:00 85 19 09/21/19 21:44 09/21/19 21:29 86 28 H 09/21/19 21:00 79 21 09/21/19 20:58 86 90 28 H 24 09/21/19 20:00 72 19 09/21/19 19:58 78 20 09/21/19 19:09 36.6 C 78 16 BP Pulse Ox Pulse Ox Pulse Ox 09/21/19 22:00 136/80 95 09/21/19 21:44 82 L 09/21/19 21:29 154/83 H 90 09/21/19 21:00 132/78 92 09/21/19 20:58 88 L 86 L 09/21/19 20:00 137/73 92 09/21/19 19:58 141/70 H 93 09/21/19 19:09 144/92 H 92 Laboratory Results Laboratory Results - last 24 hr 09/21/19 09/21/1909/20/20 18:55 18:55 18:55 WBC 11.83 H RBC 4.43 Hgb 12.4 Hct 38.7 MCV 87.4 MCH 28.0 MCHC 32.0 RDW Std Deviation 47.4 H RDW Coeff of Cem 14.7 H Plt Count 242 MPV 11.3 H Immature Gran % (Auto) 0.3 Neut % (Auto) 78.5 Lymph % (Auto) 7.4 [place] % (Auto) 11.7 Eos % (Auto) 1.8 Baso % (Auto) 0.3 Immature Gran # (Auto) 0.03 H Neut # (Auto) 9.30 H Lymph # (Auto) 0.87 L [place] # (Auto) 1.38 H Eos # (Auto) 0.21 Baso # (Auto) 0.04 PT 15.3 H INR 1.5 H APTT 41.6 H PTT Ratio 1.5 Sodium 135 L Potassium 4.1 Chloride 103 Carbon Dioxide 26 Anion Gap 6.0 BUN 23 H Creatinine 0.95 Est Cr Clr Drug Dosing 46.6 Est GFR ( Amer) 64.2 Est GFR (Non-Af Amer) 55.4 BUN/Creatinine Ratio 23.8 H Glucose 123 H Calcium 9.5 Total Bilirubin 0.4 AST 62 H ALT 41 Alkaline Phosphatase 107 Troponin I < 0.015 Total Protein 7.8 Albumin 2.9 L Globulin 4.9 H Albumin/Globulin Ratio 0.6 L Lipase 166 Medications Administered Current Inpatient Medications Levofloxacin/Dextrose (Levaquin/D5w) 500 mg in 100 mls @ 100 mls/hr IV Q24H JUANIS Stop: 09/23/19 21:29 Last Infusion: 09/21/19 23:22 Dose: Infused Documented by: Ioversol (Optiray 320 125ml) 118 ml IV ONCE PRN PRN Reason: Interaction Checking Stop: 09/25/19 21:25 Last Admin: 09/21/19 21:27 Dose: 118 ml Documented by: Supervising Physician Co-Signing Physician Notes Attending addendum: I have physically seen this patient, have supervised the medical residents activities, and agree with the H&P unless as otherwise noted. Assessment and Plan: Right lower lobe pneumonia/right hilar mass with mediastinal/subcarinal adenopathy- Vancomycin IV and Zosyn IV. N.p.o. after midnight Consult pulmonology for possible bronchoscopy. Duonebs every 4 hours while awake and every 2 hours when necessary. CAD/paroxysmal atrial fibrillation- The patient will be admitted to telemetry for serial cardiac enzymes, serial EKG's, cardiac rhythm monitoring and complete echocardiogram with Dopplers. Continue sotalol, diltiazem. Hold Xarelto for possible bronchoscopy Remainder orders and notations as noted. Resident Activity Tracking Resident Involvement: Resident Care Provided Care Provided: Adult [facility] Medicine
[2019-09-22] MEDS ORDERED: NITROGLYCERIN SL 0.4 MG/TAB TAB SL PRN (00:45)
[2019-09-22] MEDS ORDERED: ALUMINUM/MAGNESIUM SUSP 30 ML UDC PO PRN (00:45)
[2019-09-22] MEDS ORDERED: ALBUTEROL HFA 8 GM INHALER INH PRN (00:45)
[2019-09-22] MEDS ORDERED: ACETAMINOPHEN 325 MG TAB PO PRN (00:45)
[2019-09-22] MEDS ORDERED: METHOCARBAMOL 750 MG TABLET PO PRN (00:45)
[2019-09-22] MEDS ORDERED: DOCUSATE SODIUM 100 MG CAP PO PRN (00:45)
[2019-09-22] MEDS ORDERED: ALPRAZolam 0.25 MG TABLET PO PRN (00:45)
[2019-09-22] MEDS ORDERED: VANCOMYCIN CONSULT ACTIVE PRN (00:45)
[2019-09-22] MEDS ORDERED: ONDANSETRON INJ 2 MG/ML 2 ML VIAL IV PRN (00:45)
[2019-09-22] MEDS ORDERED: PIPERACILL/TAZOBAC CONSULT ACTIVE PRN (00:45)
[2019-09-22] MEDS ORDERED: VANCOMYCIN HCL 2,000 MG in SODIUM CHLORIDE 0.9% 500 ML IV ONE (01:30)
[2019-09-22] MEDS: PIPERACILLIN/TAZOBACTAM 3.375 GM in DEXTROSE 5% 100 ML IV SCH ×3 (01:47→17:16)
[2019-09-22 08:28] LABS: Basophils # (auto) 0.02 K/uL (0-0.2); Basophils % (auto) 0.2 %; Eosinophils % (auto) 0.8 %; Hematocrit (blood only) 36.3 % (37-47); Immature Granulocytes # (auto) 0.03 K/uL (0.00-0.02); Immature Granulocytes % (auto) 0.2 %; Lymphocytes # (auto) 0.69 K/uL (1.2-3.4); Lymphocytes % (auto) 5.6 %; Mean Corpuscular Hemoglobin 28.1 pg (25-34); Mean Corpuscular Hgb Conc 33.1 g/dL (32-36); Mean Platelet Volume 10.7 fL (7.4-10.4); Monocytes # (auto) 2.04 K/uL (0.11-0.59); Monocytes % (auto) 16.5 %; Neutrophils # (auto) 9.52 K/uL (1.4-6.5); Neutrophils % (auto) 76.7 %; Platelet Count 175 K/uL (130-400); RDW Coefficient of Variation 14.6 % (11.5-14.5); RDW Standard Deviation 45.6 fL (36.4-46.3); Red Blood Count 4.27 M/uL (4.2-5.4)
[2019-09-22] MEDS ORDERED: dilTIAZem ER 180 MG CAPCR PO SCH (09:00)
[2019-09-22 09:05] LABS: BUN Creatinine Ratio 25.4 (10-20); Calcium 8.8 mg/dl (8.5-10.1); Creatinine Clr Calc Pharmacy 72.8 ml/min; Est GFR (African American) 96.6; Est GFR (Non-African American) 83.4; Potassium 3.6 mmol/L (3.5-5.1)
[2019-09-22] MEDS: ASPIRIN 325 MG ECTAB PO SCH (09:46)
[2019-09-22] MEDS: POTASSIUM CHLORIDE 20 MEQ TABCR PO SCH (09:46)
[2019-09-22] MEDS: SOTALOL HCL 80 MG TAB PO SCH ×2 (09:47→20:49)
[2019-09-22] MEDS: SERTRALINE HCL 50 MG TABLET PO SCH (09:47)
[2019-09-22] MEDS: FUROSEMIDE 40 MG TAB PO SCH (09:47)
--- NOTE | 2019-09-22 10:16 | Pulmonary Consultation ---
Date of Consultation September 22, 2019 Assessment & Plan (1) Abnormal finding on CT scan: Impression: 84-year-old female non-smoker with history of uterine cancer within the last 24 months who presents now with an enlarging right hilar mass and new right-sided pleural effusion as well as hepatic hypodensities concerning for widely metastatic disease. Recommendations: 1. Pleural effusion: We will plan on proceeding with diagnostic and therapeutic thoracentesis. This would provide the patient with some symptom relief as well as diagnosis and stage her. As she is on anticoagulants, will defer thoracentesis until she has been off of Xarelto for 24 hours. We will try and perform the procedure later this afternoon. The patient does not need to be n.p.o. currently. 2. Lung mass: If the pleural fluid is nondiagnostic, could consider CT-guided biopsy of 1 of the hepatic lesions or potential bronchoscopy with endobronchial ultrasound and transbronchial needle aspiration. Assessment of the hepatic hypodensities would be favored as this would provide both diagnostic and staging information. 3. Pneumonia: I do not see evidence of airspace opacity on the patient's CT scan of the pulmonary parenchyma. She has no infectious symptoms and she is afebrile. Discontinue vancomycin. She does have a slight elevation in her white blood cell count of unclear etiology. I do not believe the patient has pneumonia but will defer decisions regarding antibiotics to the primary admitting service. 4. Given the extensive abnormalities on her CT scan, would recommend MRI of the brain with contrast to evaluate for potential occult metastatic disease. Outpatient PET scan will also likely be required. (2) Pleural effusion: (3) Lung mass: History of Present Illness Attending Physician: Mert Lira History of Present Illness Asked by hospitalist service to evaluate patient with abnormal chest imaging. History is obtained from discussion with the patient and review the electronic medical record. The patient is an 84-year-old female with a history of uterine cancer diagnosed about 2 years ago. She is a non-smoker. She states that for her uterine cancer she underwent radical hysterectomy. She did not receive chemotherapy or radiation therapy and apparently the tumor was localized. The patient does relate that she had a history of a pleural effusion about 10 years ago and underwent thoracentesis. She is unclear on any additional details regarding that diagnosis or management. The patient reports increasing shortness of breath over the last 3 months. She had some chest pain yesterday which prompted an evaluation in the emergency room. A chest x-ray was abnormal which led to a CT scan showing a right hilar mass with a large right-sided pleural effusion. The patient was admitted to the hospitalist service and we are consulted for further evaluation. She did receive antibiotics for potential pneumonia. The patient is taking Xarelto for atrial fibrillation. She takes her medication around 5:00 at night and she did take it yesterday. Allergies Allergy/AdvReac Type Severity Reaction Status Date / Time digoxin AdvReac Mild DIARRHEA Verified 08/04/19 09:18 Home Medications Home Medications Medication Instructions Recorded Confirmed Type Xarelto 20 mg PO .UD 11/15/18 09/21/19 History aspirin 325 mg PO QAM 11/15/18 09/21/19 History sotalol 240 mg tablet 240 mg PO BID #180 tab 02/10/19 09/21/19 Rx docusate sodium 100 mg capsule 100 mg PO DAILY PRN 02/24/19 09/21/19 History multivitamin 1 tab PO 2XWK 02/24/19 09/21/19 History polyethylene glycol 3350 17 17 g PO DAILY PRN gm 02/24/19 09/21/19 History gram/dose oral powder ascorbic acid (vitamin C) 500 mg 500 mg PO 2XWK tab 04/30/19 09/21/19 History tablet cholecalciferol (vitamin D3) 50 2,000 units PO 2XWK tab 04/30/19 09/21/19 History mcg (2,000 unit) tablet alprazolam 0.25 mg tablet 0.25 mg PO BID PRN #30 tab 05/01/19 09/21/19 Rx methocarbamol 750 mg tablet 750 mg PO BID PRN #60 tab 05/25/19 09/21/19 Rx simvastatin 10 mg PO 3XWK 07/14/19 09/21/19 History furosemide 40 mg PO DAILY #90 tab 07/26/19 09/21/19 Rx potassium chloride 20 mEq 20 meq PO DAILY #30 tab 07/31/19 09/21/19 Rx tablet,extended release(part/cryst) albuterol sulfate 90 mcg/actuation 1 - 2 puffs INH QID PRN gm 08/04/19 09/21/19 History aerosol inhaler sertraline 50 mg tablet 75 mg PO QAM #45 tab 09/02/19 09/21/19 Rx diltiazem HCl 180 mg PO DAILY 09/21/19 09/21/19 History vitamin E 200 unit PO 2XWK 09/21/19 09/21/19 History Patient History Medical History Acute myocardial infarction Atrial fibrillation (Chronic) Encounter for follow-up surveillance of endometrial cancer Endometrial adenocarcinoma s/p robotic TLH/BSO 2017 HTN (hypertension) (Chronic) Surgical History S/P hysterectomy S/P placement of cardiac pacemaker S/P tubal ligation Family History Father Colorectal cancer Mother Congestive heart failure Hypertension Ulcer Colorectal cancer Myocardial infarction Sister Coronary arteriosclerosis Endometriosis Lung cancer Denies family history of Ovarian cancer Prostate cancer Breast cancer Social History Preferred Language: Telugu Communication Ability: Effective Visual Impairment: No Limitations Hearing Ability: Normal American [employer] Studies Professor Required: No Beliefs That Will Affect Care: None marital status: Current Living Situation: Alone current occupational status: retired Feels Safe at Home: Yes Smoking Status: Never smoker Hx Alcohol Use: No Hx Substance Use: No Childhood Exposure to Second-Hand Smoke: No Dental Care, Regularly: No Physical Activity Frequency: Does not Exercise Seatbelt Use: always Sunscreen Use: No Review of Systems Review of Systems: Please refer to admission H&P. I have no additions or deletions Results & Data ([facility]) Vital Signs (Past 12 Hours) Vital Signs Temp Pulse Pulse Resp BP BP BP 09/22/19 07:46 36.7 C 96 H 22 149/92 H 09/22/19 04:00 36.9 C 79 21 129/61 09/22/19 00:47 36.8 C 86 20 168/83 H 09/22/19 00:00 94 H 21 153/82 H 09/21/19 23:00 81 23 107/87 Pulse Ox 09/22/19 07:46 93 09/22/19 04:00 95 09/22/19 00:47 95 09/22/19 00:00 95 09/21/19 23:00 95 Laboratory Results 09/22/19 08:13 09/22/19 08:13 Diagnostic Findings Chest x-ray was independently reviewed and compared to prior chest x-ray from 2017. There is some fullness in the right hilum. CT angiogram from 09/21/2019 was independently reviewed. There is a large simple appearing right-sided pleural effusion with compressive atelectasis of those of the right lower lobe. There are multiple hepatic hypodensities concerning for metastatic disease. There appears to be soft tissue density encasing the bronchus intermedius extending into the mediastinum. PG Care Time/CCT Total # of Minutes Spent Total Time Spent with Patient: Total time spent is greater than 50% in coordination of care (as documented) at patient's floor/unit and/or counseling patient: Coding Level of Care Code 98149 Initial Inpt Care Lvl 3 Diagnoses Abnormal finding on CT scan R93.89 Pleural effusion J90 Lung mass R91.8 Time Spent (min) 40
[2019-09-22 10:20] LABS: Estimated Average Glucose 120 mg/dl; Hemoglobin A1C 5.8 % (4.5-5.6)
--- NOTE | 2019-09-22 10:32 | XCELERA ---
[id number] [id number]
--- NOTE | 2019-09-22 10:55 | Cardiology Consultation ---
Date of Consultation September 22, 2019 Assessment & Plan (1) Atypical chest pain: Of coronary artery disease, her pain seems atypical for acute coronary syndrome. There were no other objective findings of coronary insufficiency or injury. Cardiac biomarkers were normal. Given her abnormal CT findings suspect her symptoms are related. Do not believe she requires any additional cardiac evaluation in the absence of new symptoms. (2) Presence of cardiac pacemaker: Normally functioning. Active atrial therapies with some success in controlling her atrial fibrillation. (3) Mitral regurgitation: Moderate on evaluation today. Do not believe this is causing symptoms. Normal LV systolic function. This can be followed over time. (4) Paroxysmal atrial fibrillation: Recently she does seem to be having more episodes of atrial fibrillation despite use of sotalol. This is a common progression of disease. However, her overall ventricular rates are not markedly elevated even when in atrial fibrillation. During last outpatient visit she was advised to increase her diltiazem and I think increasing her dose to 240 milligrams daily would be reasonable intervention at this point. Should she continue to have more frequent episodes of atrial fibrillation that are bothersome could consider changing her sotalol to amiodarone. She should continue systemic antic oagulation indefinitely. Anticoagulation could be interrupted temporarily in order to perform any diagnostic procedures needed for her newly discovered lung mass. (5) Coronary artery disease: Remote history of percutaneous intervention to the right coronary artery. Will continue secondary prevention which at this time includes beta-blockade, aspirin and moderate dose simvastatin. History of Present Illness Reason for Consultation: Chest pain, atrial fibrillation Requesting Physician: Sumit Attending Physician: Mert Lira History of Present Illness The patient is an 84-year-old woman with a longstanding history of paroxysmal atrial fibrillation and tachy-marshall syndrome who also has remote history of percutaneous intervention to the right coronary artery. I did speak with her over the course of the weekend when she was having some symptoms of atrial fibrillation. The episode she relate was prolonged in nature and associated with some palpitations and mild breathing difficulty. She was instructed to take an extra dose of diltiazem in her symptoms apparently resolved shortly afterwards. However, approximately 1 day later she began experience some symptoms of chest discomfort. She describes this as both left and right-sided and pleuritic in nature. She also has some discomfort in the right upper abdominal area. The symptoms were most noticeable with changes in position deep breathing as noted above. There were not constant in nature. She has a nonproductive cough which is unchanged. She reported some mild breathing difficulty. No overt fevers or chills. Based on the nature of the symptoms she sought evaluation in our emergency room. During her evaluation she was discovered to have a right hilar mass, some impingement of the adjacent bronchus and lung consolidation possibly a postobstructive pneumonia. She was in a paced rhythm at the time of her presentation. This morning she continues to have some discomfort with deep inspiration. At rest she appears to be comfortable. With the exception of some mild discomfort in the right upper quadrant. She is not describe orthopnea or paroxysmal nocturnal dyspnea. She does feel somewhat better sleeping with her head upright but has no symptoms otherwise. She denies any weight loss recently. She denies any increased swelling in the lower extremities. Currently not experiencing palpitations. No abdominal symptoms such as abdominal discomfort, tenderness on examination, nausea or vomiting. No melena. Some soft stools recently but no diarrhea. She attributes this to use of MiraLax Allergies Allergy/AdvReac Type Severity Reaction Status Date / Time digoxin AdvReac Mild DIARRHEA Verified 08/04/19 09:18 Home Medications Home Medications Medication Instructions Recorded Confirmed Type Xarelto 20 mg PO .UD 11/15/18 09/21/19 History aspirin 325 mg PO QAM 11/15/18 09/21/19 History sotalol 240 mg tablet 240 mg PO BID #180 tab 02/10/19 09/21/19 Rx docusate sodium 100 mg capsule 100 mg PO DAILY PRN 02/24/19 09/21/19 History multivitamin 1 tab PO 2XWK 02/24/19 09/21/19 History polyethylene glycol 3350 17 17 g PO DAILY PRN gm 02/24/19 09/21/19 History gram/dose oral powder ascorbic acid (vitamin C) 500 mg 500 mg PO 2XWK tab 04/30/19 09/21/19 History tablet cholecalciferol (vitamin D3) 50 2,000 units PO 2XWK tab 04/30/19 09/21/19 History mcg (2,000 unit) tablet alprazolam 0.25 mg tablet 0.25 mg PO BID PRN #30 tab 05/01/19 09/21/19 Rx methocarbamol 750 mg tablet 750 mg PO BID PRN #60 tab 05/25/19 09/21/19 Rx simvastatin 10 mg PO 3XWK 07/14/19 09/21/19 History furosemide 40 mg PO DAILY #90 tab 07/26/19 09/21/19 Rx potassium chloride 20 mEq 20 meq PO DAILY #30 tab 07/31/19 09/21/19 Rx tablet,extended release(part/cryst) albuterol sulfate 90 mcg/actuation 1 - 2 puffs INH QID PRN gm 08/04/19 09/21/19 History aerosol inhaler sertraline 50 mg tablet 75 mg PO QAM #45 tab 09/02/19 09/21/19 Rx diltiazem HCl 180 mg PO DAILY 09/21/19 09/21/19 History vitamin E 200 unit PO 2XWK 09/21/19 09/21/19 History Patient History Medical History Acute myocardial infarction Atrial fibrillation (Chronic) Encounter for follow-up surveillance of endometrial cancer Endometrial adenocarcinoma s/p robotic TLH/BSO 2018 HTN (hypertension) (Chronic) Surgical History S/P hysterectomy S/P placement of cardiac pacemaker S/P tubal ligation Family History Father Colorectal cancer Mother Congestive heart failure Hypertension Ulcer Colorectal cancer Myocardial infarction Sister Coronary arteriosclerosis Endometriosis Lung cancer Denies family history of Ovarian cancer Prostate cancer Breast cancer Social History Preferred Language: Citizen Of [place] Communication Ability: Effective Visual Impairment: No Limitations Hearing Ability: Normal Trimmer Hand Required: No Beliefs That Will Affect Care: None marital status: Current Living Situation: Alone current occupational status: retired Feels Safe at Home: Yes Smoking Status: Never smoker Hx Alcohol Use: No Hx Substance Use: No Childhood Exposure to Second-Hand Smoke: No Dental Care, Regularly: No Physical Activity Frequency: Does not Exercise Seatbelt Use: always Sunscreen Use: No Review of Systems Review of Systems: All systems reviewed & are unremarkable except as noted in HPI & below Physical Exam Physical Exam: She is alert and oriented x3. Mood affect appear normal. She answered all questions appropriately. HEENT: Sclerae are anicteric. Pupils are equal and reactive to light and accommodation. Extraocular movements were intact. Neuro: Cranial nerves intact Neck: Examination of the submandibular region did not reveal any significant lymphadenopathy. Carotids are palpable bilaterally and free of bruits on auscultation. There was no evidence of jugular venous distention. The thyroid was not enlarged. Lungs: Lungs are clear to auscultation bilaterally. There are no rales wheezes or rhonchi. She has normal respiratory effort without use of accessory muscles. There is normal pulmonary excursion. Cardiac: The rhythm was regular. S1 and S2 were normal. Holosystolic murmur. The PMI was not markedly displaced on palpation. Abdomen: The abdomen was soft and only minimally tender in the right upper quadrant. Extremities: Patient has bilateral radial pulses that are equal in intensity. There is no evidence cyanosis or clubbing. Mild lower extremity edema. Skin: There are no rashes noted on examination today. Results & Data ([facility]) Vital Signs (Past 12 Hours) Vital Signs Temp Pulse Pulse Resp BP BP BP 09/22/19 07:46 36.7 C 96 H 22 149/92 H 09/22/19 07:20 98 H 09/22/19 04:00 36.9 C 79 21 129/61 09/22/19 00:47 36.8 C 86 20 168/83 H 09/22/19 00:00 94 H 21 153/82 H 09/21/19 23:00 81 23 107/87 Pulse Ox 09/22/19 07:46 93 09/22/19 07:20 09/22/19 04:00 95 09/22/19 00:47 95 09/22/19 00:00 95 09/21/19 23:00 95 Laboratory Results Abnormal Lab Results 09/21/19 09/21/19 09/21/19 18:55 18:55 18:55 WBC 11.83 H RBC 4.43 Hgb 12.4 Hct 38.7 MCV 87.4 MCH 28.0 MCHC 32.0 RDW Std Deviation 47.4 H RDW Coeff of Cem 14.7 H Plt Count 242 MPV 11.3 H Immature Gran % (Auto) 0.3 Neut % (Auto) 78.5 Lymph % (Auto) 7.4 [place] % (Auto) 11.7 Eos % (Auto) 1.8 Baso % (Auto) 0.3 Immature Gran # (Auto) 0.03 H Neut # (Auto) 9.30 H Lymph # (Auto) 0.87 L [place] # (Auto) 1.38 H Eos # (Auto) 0.21 Baso # (Auto) 0.04 PT 15.3 H INR 1.5 H APTT 41.6 H PTT Ratio 1.5 Sodium 135 L Potassium 4.1 Chloride 103 Carbon Dioxide 26 Anion Gap 6.0 BUN 23 H Creatinine 0.95 Est Cr Clr Drug Dosing 46.6 Est GFR ( Amer) 64.2 Est GFR (Non-Af Amer) 55.4 BUN/Creatinine Ratio 23.8 H Glucose 123 H Estimat Average Glucose Hemoglobin A1c Calcium 9.5 Total Bilirubin 0.4 AST 62 H ALT 41 Alkaline Phosphatase 107 Troponin I < 0.015 Total Protein 7.8 Albumin 2.9 L Globulin 4.9 H Albumin/Globulin Ratio 0.6 L Triglycerides Cholesterol LDL Cholesterol, Calc VLDL Cholesterol, Calc HDL Cholesterol Cholesterol/HDL Ratio Lipase 166 09/22/19 09/22/19 09/22/19 01:07 08:13 08:13 WBC 12.40 H RBC 4.27 Hgb 12.0 Hct 36.3 L MCV 85.0 MCH 28.1 MCHC 33.1 RDW Std Deviation 45.6 RDW Coeff of Cem 14.6 H Plt Count 175 MPV 10.7 H Immature Gran % (Auto) 0.2 Neut % (Auto) 76.7 Lymph % (Auto) 5.6 [place] % (Auto) 16.5 Eos % (Auto) 0.8 Baso % (Auto) 0.2 Immature Gran # (Auto) 0.03 H Neut # (Auto) 9.52 H Lymph # (Auto) 0.69 L [place] # (Auto) 2.04 H Eos # (Auto) 0.10 Baso # (Auto) 0.02 PT INR APTT PTT Ratio Sodium 137 Potassium 3.6 Chloride 105 Carbon Dioxide 25 Anion Gap 7.0 BUN 16 Creatinine 0.62 D Est Cr Clr Drug Dosing 72.8 Est GFR ( Amer) 96.6 Est GFR (Non-Af Amer) 83.4 BUN/Creatinine Ratio 25.4 H Glucose 119 H Estimat Average Glucose Hemoglobin A1c Calcium 8.8 Total Bilirubin AST ALT Alkaline Phosphatase Troponin I < 0.015 Total Protein Albumin Globulin Albumin/Globulin Ratio Triglycerides 62 Cholesterol 121 LDL Cholesterol, Calc 62 VLDL Cholesterol, Calc 12 HDL Cholesterol 47 Cholesterol/HDL Ratio 3 Lipase 09/22/19 09/22/19 08:13 08:13 WBC RBC Hgb Hct MCV MCH MCHC RDW Std Deviation RDW Coeff of Cem Plt Count MPV Immature Gran % (Auto) Neut % (Auto) Lymph % (Auto) [place] % (Auto) Eos % (Auto) Baso % (Auto) Immature Gran # (Auto) Neut # (Auto) Lymph # (Auto) [place] # (Auto) Eos # (Auto) Baso # (Auto) PT INR APTT PTT Ratio Sodium Potassium Chloride Carbon Dioxide Anion Gap BUN Creatinine Est Cr Clr Drug Dosing Est GFR ( Amer) Est GFR (Non-Af Amer) BUN/Creatinine Ratio Glucose Estimat Average Glucose 120 Hemoglobin A1c 5.8 H Calcium Total Bilirubin AST ALT Alkaline Phosphatase Troponin I < 0.015 Total Protein Albumin Globulin Albumin/Globulin Ratio Triglycerides Cholesterol LDL Cholesterol, Calc VLDL Cholesterol, Calc HDL Cholesterol Cholesterol/HDL Ratio Lipase Diagnostic Findings Echocardiogram obtained today revealed overall preserved LV systolic function with mitral regurgitation. Moderate tricuspid regurgitation and trace aortic regurgitation. Pulmonary pressures were elevated. CT scan of the chest last evening revealing a right perihilar mass and possible metastatic disease involving the liver. Performed a complete device interrogation which revealed occasional episodes of paroxysmal atrial fibrillation. One episode lasting 17 hours on the date she mentioned over the weekend. Otherwise normal device function with active atrial therapies. ECG Additional Comments: EKG demonstrated a paced atrial rhythm. Possible old inferior infarct with some nonspecific ST and T-wave changes. PG Care Time/CCT Total # of Minutes Spent Total Time Spent with Patient: Total time spent is greater than 50% in coordination of care (as documented) at patient's floor/unit and/or counseling patient: Coding Level of Care Code 49140 Initial Inpt Care Lvl 3 Diagnoses Atypical chest pain R07.89 Presence of cardiac pacemaker Z95.0 Mitral regurgitation I34.0 Paroxysmal atrial fibrillation I48.0 Coronary artery disease I25.10
[2019-09-22] MEDS ORDERED: VANCOMYCIN HCL 1,000 MG in SODIUM CHLORIDE 0.9% 250 ML IV SCH (14:00)
--- NOTE | 2019-09-22 14:24 | Electrocardiogram Report ---
Test Reason : Blood Pressure : / mmHG Vent. Rate : 082 BPM Atrial Rate : 080 BPM P-R Int : 246 ms QRS Dur : 110 ms QT Int : 400 ms P-R-T Axes : 000 002 024 degrees QTc Int : 467 ms Atrial-paced rhythm with prolonged AV conduction Possible Inferior infarct (cited on or before 11-JAN-2013) Abnormal ECG When compared with ECG of 26-JUL-2019 06:45, Non-specific change in ST segment in Lateral leads Confirmed by Alan Valle ([id number]) on 09/22/2019 2:24:02 PM Referred By: REFERRED SELF Confirmed By:Israel Valle
--- NOTE | 2019-09-22 14:28 | Electrocardiogram Report ---
Test Reason : Blood Pressure : / mmHG Vent. Rate : 091 BPM Atrial Rate : 091 BPM P-R Int : 258 ms QRS Dur : 108 ms QT Int : 384 ms P-R-T Axes : 000 008 001 degrees QTc Int : 472 ms Atrial-paced rhythm with prolonged AV conduction with occasional fusion beats Cannot rule out Inferior infarct , age undetermined Abnormal ECG When compared with ECG of 21-SEP-2019 19:09, (unconfirmed) Electronic ventricular pacemaker has replaced Electronic atrial pacemaker Confirmed by Alan Valle ([id number]) on 09/22/2019 2:28:33 PM Referred By: REFERRED SELF Confirmed By:Israel Valle
--- NOTE | 2019-09-22 15:35 | Procedure Note ---
Procedure Note Date of Service September 22, 2019 Procedure: Diagnostic therapeutic ultrasound-guided catheter thoracentesis Rectifying Operator: Dr. Prosper Sanchez Indication: Pleural effusion Consent: Signed by patient and verified with timeout prior to procedure Anesthesia: 10 mL's 1% lidocaine without epinephrine local. Procedure: Consent was verified and timeout performed. Appropriate imaging studies were reviewed prior to the procedure. Patient was placed in a seated position and limited thoracic ultrasound was performed of the bilateral chest. See separate imaging. A moderate-sized right pleural effusion was identified with compressive atelectasis. No significant effusion identified on the left. Site appropriate for thoracentesis was selected. The skin was prepped and draped in normal sterile fashion. Lidocaine was used for local analgesia. Fluid was aspirated via the finder needle. A small skin herbie was made with the scalpel and the catheter over the needle apparatus was advanced over the rib into the pleural space. Using the syringe one-way valve system, a total of 1300 mL's of [place] slightly cloudy fluid was removed. Procedure was terminated due to inability to remove any additional fluid. The catheter was removed and observed to be intact. A sterile dressing was applied. Post procedure chest x-ray was ordered. Post procedure ultrasound was performed which revealed trivial residual right-sided pleural fluid with persistent lung sliding. Fluid was sent for Gram stain and culture, cell count differential, LDH, pH, glucose, and cytology. The patient tolerated the procedure well without obvious complication Coding CPT Codes Pulmonary/Thoracic - Pulmonary and Thoracic: 56846 Thoracentesis w imaging ([id number]) [facility] Procedure Codes ([place]) Pulmonary/Thoracic Procedure 1: Pulmonary and Thoracic: 02379 Thoracentesis w imaging
--- NOTE | 2019-09-22 15:55 | XRay Report ---
SINGLE VIEW CHEST CLINICAL HISTORY: Status post thoracentesis. FINDINGS: An AP, portable, upright chest radiograph is compared to chest x-ray and chest CT dated 08/30. The examination is degraded by portable technique and patient rotation. A 2-lead cardiac pace maker is unchanged in position and partially obscures the left mid chest. The heart is enlarged notin g atherosclerotic calcification of the thoracic aorta. Pulmonary vascular congestion has improved. A right pleural effusion has decreased in size from yesterday. A right perihilar mass lesion is again n oted. Foci of linear atelectasis/scarring are present in both lungs. No pneumothorax is seen. The ske letal structures are osteopenic. The bony thorax is grossly intact. IMPRESSION: 1. A right pleural effusion has decreased in size from yesterday. No pneumothorax is seen post proced ure. 2. Cardiomegaly and cardiac pacemaker. Pulmonary vascular congestion has improved. 3. A right perihilar mass lesion is again noted. ACT 112: Negative or not required by law. Electronically signed by: Nishant Rod M.D. 09/22/2019 3:54 PM
[2019-09-22 16:03] LABS: Glucose Pleural Fluid 126 mg/dl
[2019-09-22 16:17] LABS: LDH Pleural Fluid 287 U/L; Total Protein Pleural Fluid 4.5 g/dl
[2019-09-22] MEDS ORDERED: RIVAROXABAN 20 MG TAB PO SCH (16:30)
[2019-09-22 16:56] LABS: Appearance Pleural Fluid HAZY; Color Pleural Fluid AMBER; RBC Pleural Fluid (A) 14000 /uL; Source Pleural Fluid RIGHT LUNG; WBC Pleural Fluid (A) 14836 /uL
[2019-09-22 16:57] LABS: Basophils, Fluid 0 %; Eosinophils, Fluid 1 %; Lymphocytes, Fluid 96 %; Mono,Macrophage,Mesothelial 2 %; Neutrophils, Fluid 1 %
--- NOTE | 2019-09-22 22:42 | Hospitalist Progress Note ---
Date of Service September 22, 2019 Assessment & Plan (1) Abnormal finding on CT scan: Abnormal CXR/CT Findings of R Hilar Mass/PNA -Chest CTA: Large developing right hilar mass confluent with adenopathy of the mediastinum and subcarinal region. Compressive atelectasis of components of the medial right upper lobe with considerable narrowing of the right lower lobe bronchus. Probable diffuse hepatic metastatic change -consulted Pulmonology for bronch consideration -Patient will have a thoracocenthesis today and will assess fluid. -Likely CAP but will cont antibiotic regimen with IV Vanc/Zosyn for now -supplemental O2 as needed. Currently on 2L NC. Does not have any O2 requirement at home Likely malignant Patient does not want an MRI of brain to assess for malignancy spread today. Chest Pain -admit to [facility] tele -EKG: Atrial paced rhythm, no acute ischemic changes. Repeat daily EKG trop negative. Likely pleuritic from mass and fluid. -ASA initiated. Pt takes low dose simvastatin 10mg 3x/wk -nitroglycerin prn for chest pain -A1C, Lipid Panel in AM Paroxysmal Atrial Fibrillation -cont sotalol at 240 mg BID, diltiazem 180 mg -On xarelto 20mg for anticoagulation -seen 08/20/[address] Bailey with plans to increase her diltiazem to 240 mg daily; however, pt states that she does not believe it was ever sent to pharmacy and that she actually felt fine on the 180 mg, so she did not bother with it. CAD -Cont simvasatin, sotalol, ASA and prn nitro as above -troponin negative, x2 pending -No signs of acute ischemic process HTN -Diltiazem, Sotalol as above, Lasix 40 mg Anxiety -Cont Zoloft 75 mg daily, Xanax 0.25 mg BID prn Pain Continuing robaxin BID prn DVT Prophylaxis: Xarelto Conditional Code: DNI only Dispo: Med tele Admission and Anticipated Discharge Date Admission Date: September 21, 2019 Subjective Patient has no new complaints today. Review of Systems Review of Systems: All systems reviewed & are unremarkable except as noted in HPI & below Physical Exam Physical Exam: Constitutional: WD/WN, vitals as above Eyes: PERRL, conjunctivae normal, anicteric sclerae ENMT: external ear and nose normal, oropharynx normal Respiratory: normal respiratory effort; no respiratory distress and no labored breathing Cardiovascular: RRR, no murmur, no edema Gastrointestinal (Abdomen): normal bowel sounds, soft, nontender, no hepatosplenomegaly Skin: no rashes, warm and dry Psychiatric: A+Ox3, euthymic affect PG Care Time/CCT Total # of Minutes Spent Total Time Spent with Patient: Total time spent is greater than 50% in coordination of care (as documented) at patient's floor/unit and/or counseling patient: Coding Level of Care Code 19150 Subseq Hosp Care Lvl 3 Diagnoses Abnormal finding on CT scan R93.89 Time Spent (min) 35
--- NOTE | 2019-09-22 23:26 | Billing Data ---
Date of Service September 22, 2019 Coding Level of Care Code 60533 Initial Inpt Care Lvl 3
[2019-09-23] MEDS: PIPERACILLIN/TAZOBACTAM 3.375 GM in DEXTROSE 5% 100 ML IV SCH ×3 (02:08→17:15)
[2019-09-23] MEDS: POTASSIUM CHLORIDE 20 MEQ TABCR PO SCH (07:54)
[2019-09-23] MEDS: SOTALOL HCL 80 MG TAB PO SCH ×2 (07:54→20:37)
[2019-09-23] MEDS: ASPIRIN 325 MG ECTAB PO SCH (07:54)
[2019-09-23] MEDS: FUROSEMIDE 40 MG TAB PO SCH (07:54)
[2019-09-23] MEDS: dilTIAZem ER 120 MG CAPCR PO SCH (07:55)
[2019-09-23] MEDS: SERTRALINE HCL 50 MG TABLET PO SCH (07:55)
--- NOTE | 2019-09-23 10:05 | Pulmonology Progress Note ---
Date of Service September 23, 2019 Assessment & Plan (1) Abnormal finding on CT scan: Impression: 84-year-old female non-smoker with history of uterine cancer within the last 24 months who presents now with an enlarging right hilar mass and new right-sided pleural effusion as well as hepatic hypodensities concerning for widely metastatic disease. Recommendations: 1. Pleural effusion: Await final read of pleural fluid cytology but preliminary report indicate no evidence of malignancy. No evidence of reaccumulation. 2. Lung mass: If pleural fluid is read out as nondiagnostic, recommend proceeding with bronchoscopy with endobronchial ultrasound and transbronchial needle aspiration. The earliest this can be done is tomorrow morning. We will make the patient n.p.o. after midnight. Hold anticoagulation for now. After the procedure, she can likely be dismissed home with outpatient pulmonary follow-up 3. Patient will require outpatient PET scanning. MRI of the brain pending. Discussed with patient at bedside as well as hospitalist. Questions were answered to the best my ability. (2) Pleural effusion: (3) Lung mass: Subjective Patient seen and examined. EMR reviewed. She feels better after the thoracentesis and is actually inquiring about going home. No chest pain or palpitations. No cough. Her appetite is good. She did eat breakfast this morning. Review of Systems Review of Systems: Unchanged from prior Physical Exam Constitutional: WD/WN, vitals as above Neck: trachea midline, no thyromegaly Respiratory: Thoracentesis site clean dry and intact. No evidence of hematoma. Breath sounds are improved. Cardiovascular: RRR, no murmur, no edema Gastrointestinal (Abdomen): normal bowel sounds, soft, nontender, no hepatosplenomegaly Musculoskeletal: Extremities: extremities normal to inspection Skin: no rashes, warm and dry Neurologic: Nonfocal exam Lymphatic: no cervical lymphadenopathy Results & Data ([facility]) Vital Signs (Past 12 Hours) Vital Signs Temp Pulse Pulse Resp BP Pulse Ox 09/23/19 07:36 36.7 C 72 23 116/63 95 09/23/19 05:00 36.7 C 66 20 114/56 L 95 09/23/19 01:39 63 09/22/19 23:49 36.9 C 68 21 118/50 L 96 Laboratory Results 09/22/19 08:13 09/22/19 08:13 Preliminary cytology review of the pleural fluid demonstrated no malignancy. Final read pending Pleural fluid differential: 1% neutrophils, 96% lymphocytes, 1% eosinophils, 2% mesothelial cells pH 7.45 Pleural LDH 287 Pleural total protein 4.5 Pleural glucose 126 Gram stain from pleural fluid showed moderate white blood cells with no organisms. Culture pending Diagnostic Findings Post procedure chest x-ray independently reviewed. Trivial pleural fluid is present now. No evidence of pneumothorax. The right hilar density remains present. PG Care Time/CCT Total # of Minutes Spent Total Time Spent with Patient: Total time spent is greater than 50% in coordinat ion of care (as documented) at patient's floor/unit and/or counseling patient: Coding Level of Care Code 14236 Subseq Hosp Care Lvl 3 Diagnoses Abnormal finding on CT scan R93.89 Pleural effusion J90 Lung mass R91.8
[2019-09-23] MEDS: SODIUM CHLORIDE 0.9% 500 ML IV SCH (10:55)
--- NOTE | 2019-09-23 13:58 | Electrocardiogram Report ---
Test Reason : Blood Pressure : / mmHG Vent. Rate : 075 BPM Atrial Rate : 073 BPM P-R Int : 000 ms QRS Dur : 110 ms QT Int : 436 ms P-R-T Axes : 000 -09 -24 degrees QTc Int : 486 ms Atrial-paced rhythm Inferior infarct (cited on or before 11-JAN-2013) Nonspecific ST abnormality Abnormal ECG Confirmed by Alan Valle ([id number]) on 09/23/2019 1:58:00 PM Referred By: REFERRED SELF Confirmed By:Israel Valle
[2019-09-23] MEDS ORDERED: SIMVASTATIN 10 MG TAB PO SCH (21:00)
--- NOTE | 2019-09-23 21:46 | Hospitalist Progress Note ---
Date of Service September 23, 2019 Assessment & Plan (1) Abnormal finding on CT scan: Abnormal CXR/CT Findings of R Hilar Mass/PNA -Chest CTA: Large developing right hilar mass confluent with adenopathy of the mediastinum and subcarinal region. Compressive atelectasis of components of the medial right upper lobe with considerable narrowing of the right lower lobe bronchus. Probable diffuse hepatic metastatic change -consulted Pulmonology for bronch consideration -S/P thoracocenthesis -Awaiting fluid analysis, if indeterminate or negative. Patient may require bronchoscopy. -Likely CAP but will cont antibiotic regimen with IV Zosyn -supplemental O2 as needed. Currently on 2L NC. Does not have any O2 requirement at home Likely malignant Patient does not want an MRI of brain to assess for malignancy spread until initial problem is diagnosed. Chest Pain -admit to [facility] tele -EKG: Atrial paced rhythm, no acute ischemic changes. Repeat daily EKG trop negative. Likely pleuritic from mass and fluid. -ASA initiated. Pt takes low dose simvastatin 10mg 3x/wk -nitroglycerin prn for chest pain -A1C, Lipid Panel in AM Paroxysmal Atrial Fibrillation -cont sotalol at 240 mg BID, diltiazem 180 mg -On xarelto 20mg for anticoagulation -seen 08/20/[address] Bailey with plans to increase her diltiazem to 240 mg daily; however, pt states that she does not believe it was ever sent to pharmacy and that she actually felt fine on the 180 mg, so she did not bother with it. CAD -Cont simvasatin, sotalol, ASA and prn nitro as above -troponin negative, x2 pending -No signs of acute ischemic process HTN -Diltiazem, Sotalol as above, Lasix 40 mg Anxiety -Cont Zoloft 75 mg daily, Xanax 0.25 mg BID prn Pain Continuing robaxin BID prn DVT Prophylaxis: Xarelto Conditional Code: DNI only Dispo: Med tele Admission and Anticipated Discharge Date Admission Date: September 21, 2019 Subjective Patient reports no new symptoms. Patient states she is breathing comfortably. Review of Systems Review of Systems: All systems reviewed & are unremarkable except as noted in HPI & below Physical Exam Physical Exam: Constitutional: WD/WN, vitals as above Eyes: PERRL, conjunctivae normal, anicteric sclerae ENMT: external ear and nose normal, oropharynx normal Respiratory: normal respiratory effort; no respiratory distress and no labored breathing Cardiovascular: RRR, no murmur, no edema Gastrointestinal (Abdomen): normal bowel sounds, soft, nontender, no hepatosplenomegaly Skin: no rashes, warm and dry Psychiatric: A+Ox3, euthymic affect Results & Data Results & Data ([facility]) Vital Signs (Past 12 Hours) Vital Signs Temp Pulse Resp BP Pulse Ox 09/23/19 19:09 37.6 C H 74 20 116/70 95 09/23/19 12:00 64 09/23/19 11:49 37.0 C 63 18 134/74 95 PG Care Time/CCT Total # of Minutes Spent Total Time Spent with Patient: Total time spent is greater than 50% in coordination of care (as documented) at patient's floor/unit and/or counseling patient: Coding Level of Care Code 98746 Subseq Hosp Care Lvl 2 Diagnoses Abnormal finding on CT scan R93.89 Time Spent (min) 25
[2019-09-24] MEDS: PIPERACILLIN/TAZOBACTAM 3.375 GM in DEXTROSE 5% 100 ML IV SCH ×2 (01:43→11:38)
--- NOTE | 2019-09-24 08:16 | History & Physical Bridge Note ---
Date of Service September 24, 2019 History & Physical Bridge Note I have examined the patient, reviewed the History & Physical and in the interval since the performance of the History & Physical I have noted the following changes of clinical significance: no changes noted
--- NOTE | 2019-09-24 08:16 | Pre Anesthesia Assessment ---
Date of Service September 24, 2019 Pre Sedation Assessment Vital Signs Temp Pulse Pulse Resp BP Pulse Ox 09/24/19 08:15 69 14 117/66 98 09/24/19 08:00 60 14 127/63 98 09/24/19 07:50 69 14 131/63 97 09/24/19 07:07 36.6 C 68 20 133/70 96 09/24/19 04:25 36.8 C 70 22 128/72 95 09/23/19 23:40 36.7 C 64 20 118/57 L 95 09/23/19 22:31 67 09/23/19 19:09 37.6 C H 74 20 116/70 95 09/23/19 12:00 64 09/23/19 11:49 37.0 C 63 18 134/74 95 Pre-Sedation Airway Assessment Smoking Status: Never smoker Short, Thick Neck: Yes Thyromental Distance: > or= 3.5 Finger Breadths Oral Cavity: + Dentures Mallampati Class: II ASA: ASA3 NPO Status Date of Last Intake of Fluids: 09/24/19 Time of Last Intake of Fluids: 17:30 Date of Last Intake of Solid Food: 09/24/19 Time of Last Intake of Solid Foods: 17:30 Notes The planned sedation has been discussed with the patient. Informed Consent was obtained. I have identified the patient, determined the appropriateness of sedation and have assessed the patient immediately prior to the procedure. All medicine(s) and interventions are by my order.
[2019-09-24] MEDS ORDERED: LIDOCAINE HCL 2% (LOCAL) INJ 50 ML VIAL INFIL STA (08:52)
[2019-09-24] MEDS ORDERED: MIDAZOLAM HCL 1 MG/ML 2ML VIAL IV STA (08:52)
[2019-09-24] MEDS ORDERED: fentaNYL citrate 100 MCG/2 ML VIAL IV ONE (08:56)
[2019-09-24] MEDS ORDERED: LIDOCAINE 4% INH SOLN 4 ML BTL INH ONE (08:58)
--- NOTE | 2019-09-24 08:59 | Post Anesthesia Assessment ---
Date of Service September 24, 2019 Post Sedation Assessment Vital Signs Temp Pulse Pulse Resp BP Pulse Ox 09/24/19 08:55 68 14 119/55 L 93 09/24/19 08:50 96 H 14 145/66 H 93 09/24/19 08:45 86 8 L 145/80 H 93 09/24/19 08:40 66 14 135/67 80 L 09/24/19 08:35 67 14 121/71 98 09/24/19 08:30 64 14 132/74 95 09/24/19 08:25 80 16 160/74 H 91 09/24/19 08:20 65 12 120/66 97 09/24/19 08:15 69 14 117/66 98 09/24/19 08:00 60 14 127/63 98 09/24/19 07:50 69 14 131/63 97 09/24/19 07:07 36.6 C 68 20 133/70 96 09/24/19 04:25 36.8 C 70 22 128/72 95 09/23/19 23:40 36.7 C 64 20 118/57 L 95 09/23/19 22:31 67 09/23/19 19:09 37.6 C H 74 20 116/70 95 09/23/19 12:00 64 09/23/19 11:49 37.0 C 63 18 134/74 95 Recovery Score Activity: Moves 4 extremities Respiration: Deep Breath/Cough Circulation: +/-20% PreAnes Value Consciousness: Arouseable (by name) Oxygen Saturation: O2 needed for >90% Post Anesthesia Score: 8 Discharge Sedation Level of Care: Fast Track Phase II Post Sedation Plan On clinical assessment, the patient appears to have tolerated the sedation without complications. Patient is recovering as anticipated. Patient will continue to be monitored by nursing and may be discharged when sedation discharge criteria are met per below protocol. Upon Completions of procedure up to 15 minutes continue every 5 minute vital signs and the P.A.R. score; then discharge to a Phase I or Fast Track to Phase II per the following guidelines: * Discharge Patient to appropriate Phase II area if PAR is 8 or greater or return to pre- procedure baseline. The post - procedure orders will be as directed. * If PAR score is less than 8 or not return to pre-procedure baseline then patient will follow Phase I monitoring till PAR is reached for Phase II. The Phase I may be done in procedure room or may call to secure a Phase I area. * If naloxone or flumazenil are used for reversal, hold in Phase I for continued monitoring from when last reversal dose was given for a minimum of 60 minutes or longer pending the nurse and/or physician discretion of patient condition before discharge to Phase II. Please call the Sedation Physician to re-evaluate and complete post-note for discharge to Phase II area. Do NOT discharge from procedure sedation or Phase 1 until post- sedation evaluation note is complete by procedure /sedation MD Sedation Discharge Instructions to be given to the patient at discharge to home.
--- NOTE | 2019-09-24 09:09 | Procedure Note ---
Procedure Note: Bronchoscopy Procedure Procedure: Fiberoptic bronchoscopy Endobronchial ultrasound evaluation during bronchoscopy Endobronchial ultrasound with transbronchial needle aspiration of lymph nodes, 2 stations Conscious sedation Provider: Prosper Sanchez MD Consent: Signed by patient and timeout verified prior to procedure. Sedation start:815 Sedation end:850 Conscious sedation: 5 mg Versed, 125 mcg fentanyl, topical lidocaine per RT protocol Procedure: Patient was brought to the bronchoscopy suite. Consent was verified. Appropriate radiographic studies had been reviewed prior to the procedure. Standard monitoring was applied. Oxygen was administered. After topical anesthesia of the airways per respiratory therapy protocol, the fiberoptic scope was advanced through the oropharynx by the bite-block. Oropharynx was unremarkable. Vocal cords were visualized and were normal in function and appearance. Topical anesthesia of the cords was achieved with instillation of lidocaine through the scope. Scope was then passed through the vocal cords. The trachea was slightly tortuous. Main augusta was splayed. Anesthesia of the lower airways was achieved with instillation of lidocaine through the scope. A sequential and systematic examination of the lower airways was conducted. There was a whitish lesion present at the 11 o'clock position of the trachea just proximal to the main augusta. Please see photos. Left-sided airways were patent although there did appear to be some distal nodularity noted . The right mainstem bronchus was erythematous with evidence of lymphangitic engorgement. The right upper lobe and bronchus intermedius were both abnormal with extrinsic compression. They were patent. The mucosa was very friable and bled with any manipulation. The middle lobe and lower lobe orifice was patent however again the mucosa did appear abnormal. After the inspection bronchoscopy was completed, the fiberoptic scope was withdrawn and the endobronchial ultrasound was advanced via the bite-block through the vocal cords. Lymph node stations were evaluated with endobronchial ultrasound including 2R, 2L, 4R, 4L, 7, 10/11 R/L. Adenopathy was identified in the 4R, 7, 10 R, and 10 L stations. Using a 21-gauge needle and under direct ultrasound visualization, the level 7 and 4R lymph nodes were biopsied. Rapid onsite cytologic evaluation was available and can adequacy of specimen. The patient did have some transient oxygen desaturations and responded to increasing FiO2. Due to her oxygenation issues, additional lymph node stations were not sampled at this time and it was elected to conclude the procedure. The scope was withdrawn after hemostasis was confirmed. The bronchoscope was then removed from the airways. The patient tolerated the procedure well without obvious complication. Impression: 1. Mucosal lesion in the trachea at the 11 o'clock position approximately 1 cm proximal to the main augusta 2. Extensive extrinsic compression of the right mainstem, bronchus intermedius, and right upper lobe orifice. 3. Pathologic adenopathy identified in multiple stations as described above. Successful endobronchial ultrasound transbronchial needle aspiration of level 4R and level 7 lymph node stations. Await final pathology report however preliminary indicates malignancy present. Medical oncology and potentially radiation oncology consultations needed.
--- NOTE | 2019-09-24 09:29 | Pulmonology Progress Note ---
Date of Service September 24, 2019 Assessment & Plan (1) Abnormal finding on CT scan: Impression: 84-year-old female non-smoker with history of uterine cancer within the last 24 months who presents now with an enlarging right hilar mass and new right-sided pleural effusion as well as hepatic hypodensities concerning for widely metastatic disease. Recommendations: 1. Pleural effusion: Await final read of pleural fluid cytology but preliminary report indicate no evidence of malignancy. No evidence of reaccumulation. 2. Lung mass: Bronchoscopy performed today with endobronchial ultrasound and transbronchial needle aspiration. Initial findings concerning for small cell lung cancer. Given liver lesions, this is extensive disease. Will proceed with MRI scanning of the brain. She needs medical oncology evaluation discussed with them today. 3. Wean oxygen as tolerated. Would recommend that that the patient be seen by medical oncology given preliminary results of small cell lung cancer before being discharged home. MRI of the brain should also be completed. We will discuss with multidisciplinary conference today. (2) Pleural effusion: (3) Lung mass: Admission and Anticipated Discharge Date Admission Date: September 21, 2019 Subjective Patient seen and examined. EMR reviewed. No acute changes overnight. She reports no chest pain. No cough or shortness of breath. She actually feels reasonably well. She is n.p.o. for bronchoscopy this morning and was seen in the bronchoscopy suite. Review of Systems Review of Systems: unchanged from previous Physical Exam Constitutional: WD/WN, vitals as above ENMT: Mallampati Class: II Neck: trachea midline, no thyromegaly Cardiovascular: RRR, no murmur, no edema Gastrointestinal (Abdomen): normal bowel sounds, soft, nontender, no hepatosplenomegaly Musculoskeletal: Extremities: extremities normal to inspection Skin: no rashes, warm and dry Lymphatic: no cervical lymphadenopathy Results & Data Results & Data ([facility]) Vital Signs (Past 12 Hours) Vital Signs Temp Pulse Pulse Resp BP Pulse Ox 09/24/19 09:10 65 14 121/62 95 09/24/19 09:05 67 14 131/62 94 09/24/19 09:00 67 14 114/55 L 94 09/24/19 08:55 68 14 119/55 L 93 09/24/19 08:50 96 H 14 145/66 H 93 09/24/19 08:45 86 8 L 145/80 H 93 09/24/19 08:40 66 14 135/67 80 L 09/24/19 08:35 67 14 121/71 98 09/24/19 08:30 64 14 132/74 95 09/24/19 08:25 80 16 160/74 H 91 09/24/19 08:20 65 12 120/66 97 09/24/19 08:15 69 14 117/66 98 09/24/19 08:00 60 14 127/63 98 09/24/19 07:50 69 14 131/63 97 09/24/19 07:07 36.6 C 68 20 133/70 96 09/24/19 04:25 36.8 C 70 22 128/72 95 09/23/19 23:40 36.7 C 64 20 118/57 L 95 09/23/19 22:31 67 Laboratory Results 09/22/19 08:13 09/22/19 08:13 Diagnostic Findings no new imaging PG Care Time/CCT Total # of Minutes Spent Total Time Spent with Patient: Total time spent is greater than 50% in coordination of care (as documented) at patient's floor/unit and/or counseling patient: Coding Level of Care Code 99008 Subseq Hosp Care Lvl 2 Diagnoses Abnormal finding on CT scan R93.89 Pleural effusion J90 Lung mass R91.8
[2019-09-24] MEDS ORDERED: GADOBUTROL 65ML VIAL IV PRN (11:02)
--- NOTE | 2019-09-24 11:19 | Magnetic Resonance Report ---
MR brain wo/w con CLINICAL HISTORY: 84 years-old Female presenting with small cell lung cancer. TECHNIQUE: Multisequence, multiplanar MR imaging of the brain was performed before and after the admi nistration of intravenous contrast. IV contrast: 8.5 mL of Gadavist. COMPARISON: None. FINDINGS: Localizer images: Unremarkable. Bone marrow signal intensity within the calvarium within normal limits. Normal midline sagittal structures. Proportional ventricular and sulcal prominence, likely age-relate d parenchymal volume loss. No mass effect or midline shift. No restricted diffusion or hemorrhage. Pe riventricular and subcortical white matter T2/FLAIR hyperintensity, nonspecific but likely indicative of chronic small vessel ischemic change. No abnormal parenchymal enhancement. No extra-axial fluid collection. T2 skull base flow voids preserved. IMPRESSION: 1. No evidence of intracranial metastatic disease. 2. No acute intracranial abnormality. ACT 112: Negative or not required by law. Electronically signed by: Mac Oates M.D. 09/24/2019 11:17 AM
[2019-09-24] MEDS: ASPIRIN 325 MG ECTAB PO SCH (11:36)
[2019-09-24] MEDS: SOTALOL HCL 80 MG TAB PO SCH (11:36)
[2019-09-24] MEDS: SERTRALINE HCL 50 MG TABLET PO SCH (11:37)
[2019-09-24] MEDS: SODIUM CHLORIDE 0.9% 500 ML IV SCH (11:37)
[2019-09-24] MEDS: FUROSEMIDE 40 MG TAB PO SCH (11:37)
[2019-09-24] MEDS: dilTIAZem ER 120 MG CAPCR PO SCH (11:37)
[2019-09-24] MEDS: POTASSIUM CHLORIDE 20 MEQ TABCR PO SCH (11:37)
--- NOTE | 2019-09-29 23:18 | Discharge Summary ---
Date of Service September 24, 2019 Admission HPI Per Admitting Provider 84 yo F with PMH Atrial Fibrillation, CAD with heart attack and stent placement a little over ten years ago, Pacemaker, Anxiety, HTN, Osteoarthritis presents to [facility] via EMS with concerns of left sided CP, SOB. 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 Pain described as sharp, intermittent with radiation into L shoulder. At worst 7/10 severity. Worse with movement, alleviated for the most part with rest. Pt did not try anything for this, but called EMS and they gave ASA and nitro with resolution of sxs. Pt also admits to [place], chills, cough, sore throat and decreased appetite. Otherwise denies diaphoresis, palpitations, orthopnea, syncope or near syncope, edema, F/N/V/D, rhinorrhea, abd pain, urinary sxs, recent travel, sick contacts. At the time of my evaluation, pt with no CP , resting comfortably with NC in place. Pt with no other acute concerns or complaints. In ED, an ambulatory pulse ox with sats ranging in 86-88%. Pt does not normally use any home O2 normally. EKG: Atrial paced rhythm, no acute ischemic changes CXR: Parenchymal infiltrate with mild small right effusion. Right hilar enlargement with superimposed atelectasis Chest CTA: No evidence of pulmonary embolus. Large developing right hilar mass confluent with adenopathy of the mediastinum and subcarinal region. Compressive atelectasis of components of the medial right upper lobe with considerable narrowing of the right lower lobe bronchus. Probable diffuse hepatic metastatic change. Pertinent Labs: WBC 11.8, Na 135, INR 1.5, Trop neg ER Course: IV Rocephin, IV Levaquin Family Hx: Father- colorectal ca. Mother- CHF, HTN, Colorectal ca Social: Denies Tobacco, Alcohol, Illicit Drug Use Surgical Hx: hysterectomy, placement of cardiac pacemaker, tubal ligation Principal Diagnosis R hilar/lung mass Discharge Exam Constitutional: WD/WN, vitals as above Eyes: PERRL, conjunctivae normal, anicteric sclerae ENMT: external ear and nose normal, oropharynx normal Respiratory: normal respiratory effort; no respiratory distress and no labored breathing Cardiovascular: RRR, no murmur, no edema Gastrointestinal (Abdomen): normal bowel sounds, soft, nontender, no hepatosplenomegaly Skin: no rashes, warm and dry Psychiatric: A+Ox3, euthymic affect Discharge Data Allergies Allergy/AdvReac Type Severity Reaction Status Date / Time digoxin AdvReac Mild DIARRHEA Verified 08/04/19 09:18 Consultations 09/21/19 21:07 ED Decision to Admit Stat 09/22/19 00:45 Consult Cardiology Routine Consult Pulmonology Routine Procedures Performed Operation Date: 09/24/19 08:00 Actual Procedures p Endobronchial Ultrasound (EBUS)(Bilateral) - Prosper Sanchez MD Ordered Studies 09/21/19 21:04 CT angio chest PE protocol Stat 09/22/19 14:45 US point of care ultrasound Urgent 09/24/19 09:12 MR brain wo/w con Urgent Hospital Course (1) Abnormal finding on CT scan: Abnormal CXR/CT Findings of R Hilar Mass/PNA -Chest CTA: Large developing right hilar mass confluent with adenopathy of the mediastinum and subcarinal region. Compressive atelectasis of components of the medial right upper lobe with considerable narrowing of the right lower lobe bronchus. Probable diffuse hepatic metastatic change -consulted Pulmonology for bronch consideration -S/P thoracocenthesis -Awaiting fluid analysis, if indeterminate or negative. Patient may require bronchoscopy. -Likely CAP but will cont antibiotic regimen with IV Zosyn -supplemental O2 as needed. Currently on 2L NC. Does not have any O2 requirement at home Likely malignant MRI of brain negative. Patient refused inpatient oncology consult as she wanted to be discharge. will followup as an outpatient. Chest Pain -admit to med tele -EKG: Atrial paced rhythm, no acute ischemic changes. Repeat daily EKG trop negative. Likely pleuritic from mass and fluid. -ASA initiated. Pt takes low dose simvastatin 10mg 3x/wk -nitroglycerin prn for chest pain -A1C, Lipid Panel in AM Paroxysmal Atrial Fibrillation -cont sotalol at 240 mg BID, diltiazem 180 mg -On xarelto 20mg for anticoagulation -seen 08/20/[address] Bailey with plans to increase her diltiazem to 240 mg daily; however, pt states that she does not believe it was ever sent to pharmacy and that she actually felt fine on the 180 mg, so she did not bother with it. CAD -Cont simvasatin, sotalol, ASA and prn nitro as above -troponin negative, x2 pending -No signs of acute ischemic process HTN -Diltiazem, Sotalol as above, Lasix 40 mg Anxiety -Cont Zoloft 75 mg daily, Xanax 0.25 mg BID prn Pain Continuing robaxin BID prn DVT Prophylaxis: Xarelto Total Time Total Time Spent Total Time Spent (In Minutes): 32 Total Time Includes: Examination of the Patient, Discharge Planning and Medication Reconciliation Discharge Plan Discharge Items Patient Disposition: Home - Self-Care Reason For Visit: PNA / HILAR MASS Discharge Diagnosis: Hilar mass Condition on Discharge: Good Activity: Resume your previous activity Non-emergency contact: Primary Care Provider Call non-emergency contact if: you have any medication questions Follow-up/Referrals: Matt Saldaña DO [Primary Care Provider] - (SPOKE TO [facility]: THEY WILL HAVE NURSING FOLLOW UP WITH PATIENT APPOINTMENT DUE TO AHN VIRUS OUTBREAK ) Diet: Regular Addtl Attending Provider Instructions: Needs to followup with Oncology within next 1-2 weeks. Coronavirus disease 2019 (COVID-19) is a virus that causes a respiratory illness. It is caused by a coronavirus called 2019 novel coronavirus (2019- nCoV). There are many types of coronavirus. Coronaviruses are a very common cause of bronchitis. They may sometimes cause lung infection(pneumonia). Symptoms can range from mild to severe respiratory illness. These viruses are also foundin some animals. COVID-19 was first found in people in [facility], in late 2019. In 2020, several cases of COVID-19 have been confirmed in the [place] Public health officials are working to find the source. How the virus spreads is not yet fully known. It may be spread through droplets of fluid that a person coughs or sneezes into the air. It may be spread if you touch a surface with virus on it, such as a handle or object, and then touch your mouth. What are the symptoms of COVID-19? Some people have no symptoms or mild symptoms. Symptoms may appear 2 to 14 days after contact with the virus. Symptoms can include: Fever Coughing Trouble breathing What are possible complications from COVID-19? In many cases, this virus can cause infection (pneumonia) in both lungs. In some cases, this can cause . How is COVID-19 diagnosed? Your healthcare provider will ask about your symptoms. He or she will also ask about your recent travel and contact with sick people. Testing for the virus is only done through the CDC. If yourhealthcare provider thinks you may have COVID- 19, he or she will work with your local health department and the CDC on testing. Follow all instructions from your healthcare provider. COVID-19 is diagnosed by: Nasal and throat swab. A cotton-tipped swab is wiped inside your nose or throat. This is done to check for viruses in your nasal mucus. Sputum culture. A small sample of mucus coughed from your lungs (sputum) is collected if you have a cough. It is checked for the virus. How is COVID-19 treated? There is currently no medicine to treat the virus. Treatment is done to help your body while it fights the virus. This is known as supportive care. Supportive care may include: Pain medicine. These include acetaminophen and ibuprofen. They are used to help ease pain and reduce fever. Bed rest. This helps your body fight the illness. For severe illness, you may need to stay in the hospital. Care during severe illness may include: IV (intravenous) fluids.These are given through a vein to help keep your body hydrated. Oxygen. Supplemental oxygen or ventilation with a breathing machine (ventilator) may be given. This is done to keep enough oxygen in your body. Are you at risk for COVID-19? If youve been to a place where people have been sick with this virus, you are at risk for infection. You are at risk if you: Recently traveled to an affected area Had contact with a sick person who recently traveled to this area Had contact with a person who was diagnosed with COVID-19 How can COVID-19 be prevented? There is no vaccine yet. The best prevention is to not have contact with the virus. The CDC advises that people should not travel to areas where there are COVID-19 outbreaks right now for any reason that is not urgent. To help prevent spreading the infection, wash your hands often, or use an alcohol-basedhand transfer station operator. If you are in an area with COVID-19: Wash your hands often. Or use an alcohol-based hand transfer station operator often. Only touch your eyes, nose, or mouth with clean hands. Dont have contact with people who are sick. Follow local instructions about being in public. For example, you may be told to not use public transport for a period of time. Stay away from markets that have live or animals. Wash your hands after touching any animals. Don't touch animals that may be sick. Dont share eating or drinking tools with sick people. Dont kiss someone who is sick. Clean surfaces often with disinfectant. If you were in an area with COVID-19 in the last 14 days: Call your healthcare provider. He or she can talk with local health staff to see what action may be needed. Follow all instructions from your provider. Take your temperature every morning and evening for at least 14 days. This is to check for fever. Keep a record of the readings. Keep watch for symptoms of the virus. Tell your provider right away if you have symptoms. If you were in an area with COVID-19 and have a fever or other symptoms: Dont panic. Keep in mind that other illnesses can cause similar symptoms. Stay away from work, school, and public places. Limit physical contact with family members. Don't kiss anyone or share eating or drinking utensils. Clean surfaces you touch with disinfectant. This is to help prevent the virus from spreading. Call your healthcare provider. Explain that you have been exposed to COVID-19 and have symptoms. Do this before going to any hospital. Wait for instructions. Keep in mind that healthcare staff may wear protective equipment such as masks, gowns, gloves, and eye protection. You may be put in a separate room. This is to prevent the possible virus from spreading. Tell the healthcare staff about recent travel. This includes local travel on public transport. Staff may need to find other people you have been in contact with. Follow all instructions the healthcare staff give you. If you have been diagnosed with COVID-19 Follow all instructions from your healthcare provider. Dont leave your home, except to get medical care. Call your healthcare providers office before going. They can prepare and give you instructions. This will help prevent the virus from spreading. Dont go to work, school, or public areas. Dont use public transport or taxis. Stay away from other people in your home. Have them wear face masks around you. Dont share household items or food. Wear a face mask if you can. This includes at home or in a medical facility. Cover your face with a tissue when you cough or sneeze. Throw the tissue away. Wash your hands. Wash your hands often. Caregivers should: Follow all instructions from healthcare staff. Wear a face mask and protective clothing as advised. Wash hands often. Keep track of the sick persons symptoms. Clean surfaces, fabrics, and laundry thoroughly. Keep other people away from the sick person. When to call your healthcare provider Call your healthcare provider: If youve recently traveled and have symptoms If you have been diagnosed with COVID-19 and your symptoms are worse To learn more To find out more about COVID-19, visit the CDC website at www.cdc.gov/coronavirus/2019-ncov/index.html. [employer]. [address] [place] [address], [place] [address]. All rights reserved. This information is not intended as a substitute for professional medical care. Always follow your healthcare professional's instructions. This information has been adapted from [employer] Pending Studies at Discharge: No Stand-Alone Forms: My [facility] [employer], Smoking Cessation Medications and DC Order Prescriptions: Continued sotalol 240 mg tablet 240 mg PO BID Qty: 180 RF: 3 methocarbamol [Robaxin-750] 750 mg tablet 750 mg PO BID PRN (Reason: Pain) Qty: 60 RF: 1 potassium chloride 20 mEq tablet,ER particles/crystals 20 meq PO DAILY Qty: 30 RF: 5 sertraline 50 mg tablet 75 mg PO QAM Qty: 45 RF: 5 docusate sodium [Colace] 100 mg capsule 100 mg PO DAILY PRN (Reason: Constipation) RF: 0 polyethylene glycol 3350 17 gram/dose powder 17 g PO DAILY PRN (Reason: Constipation) RF: 0 multivitamin [Daily Multi-Vitamin] tablet 1 tab PO 2XWK RF: 0 ascorbic acid (vitamin C) 500 mg tablet 500 mg PO 2XWK RF: 0 cholecalciferol (vitamin D3) 2,000 unit tablet 2,000 units PO 2XWK RF: 0 alprazolam 0.25 mg tablet 0.25 mg PO BID PRN (Reason: Anxiety) Qty: 30 RF: 0 albuterol sulfate 90 mcg/actuation HFA aerosol inhaler 1 - 2 puffs INH QID PRN (Reason: Shortness Of Breath Or Wheezing) RF: 0 simvastatin 10 mg tablet 10 mg PO 3XWK RF: 0 vitamin E 200 unit Capsule 200 unit PO 2XWK RF: 0 diltiazem HCl 180 mg capsule,extended release 24 hr 180 mg PO DAILY RF: 0 aspirin 325 mg Tablet 325 mg PO QAM RF: 0 Xarelto 20 mg tablet 20 mg PO .UD RF: 0 No Action furosemide 40 mg tablet 40 mg PO DAILY Qty: 90 RF: 1 Discharge Orders: Discharge Order (Routine); Ordered 09/24/19 Ordered By: Mert Lira Admission Data Admit Date/Time: 09/21/19 23:58 Attending Provider: Mert Lira Admit Provider: Gal Arana Primary Care Provider: Matt Saldaña Other Providers: Donny Valle ; Prosper Sanchez Other Interventions: Discharge Summary Assessment (RN) Last Done: 09/24/19 17:51 DC Date/Time DO NOT enter until pt leaves facility: 09/24/19 17:58 Coding Level of Care Code D/C Day Management >30 mins Diagnoses Abnormal finding on CT scan R93.89
--- NOTE | 2019-10-01 06:08 | Coding Query ---
PATHOLOGY To promote full compliance with coding requirements relating to patient care, physician participation is requested in all cases of grinder operator tool uncertainty. Please assist us with the question(s) below: Please review the Pathology reports and please document any relevant diagnosis(es) below: Biopsy appears negative, however Pulmonary believes this to be small cell lung cancer. Again, biopsies appear negative however. Diagnosis(es): Thank you Sanam Negron [facility]
--- NOTE | 2019-10-01 06:13 | Coding Query ---
CODING QUERY To promote full compliance with coding requirements relating to patient care, provider participation is requested in all cases of ceramic maker demonstrator uncertainty. Please assist us with the question(s) below: Coding Question(s): Please clarify below regarding the Pleural Effusion. (x ) Possible Malignant Pleural Effusion. Please specify the primary Malignancy:_possible small cell lung cancer ( ) Pleural Effusion is from Pneumonia ( ) Pleural Effusion is from Other: Please specify: ( ) Pleural Effusion is from Unknown etiology Physician's Response(s): Thank you Sanam Negron Principal Diagnosis: "that condition established after study, to be chiefly responsible for occasioning the admission of the patient to the hospital for care." Co-Existing Principal Diagnosis: "when two or more diagnoses equally meet the criteria for principal diagnosis as determined by the circumstances of admission, diagnostic work up, and/or therapy provided, and the Alphabetic Index, Tabular List, or another coding guideline does not provide sequencing direction, any one of the diagnoses may be sequenced first." "When the physician has documented what appears to be a current diagnosis in the body of the record, but has not included the diagnosis in the final diagnostic statement, the physician should be asked whether the diagnosis should be added." (Source [facility] 2 QTR90. p3-4) MARTIN
--- NOTE | 2019-10-13 08:07 | Coding Query ---
CODING QUERY To promote full compliance with coding requirements relating to patient care, provider participation is requested in all cases of commodity supervisor uncertainty. Please assist us with the question(s) below: Coding Question(s): The chart and Discharge Summary document PNA and likely CAP but will cont antiobiotic regimen with IV Zosyn. It is unclear if Pneumonia was still possible or if it had been ruled-out. Please specify below, in your clinical, opinion. ( ) patient was treated for possible Pneumonia ( x ) Possible Pneumonia was Ruled-Out ( ) Other: Please Specify Physician's Response(s): Thank you Sanam Negron Principal Diagnosis: "that condition established after study, to be chiefly responsible for occasioning the admission of the patient to the hospital for care." Co-Existing Principal Diagnosis: "when two or more diagnoses equally meet the criteria for principal diagnosis as determined by the circumstances of admission, diagnostic work up, and/or therapy provided, and the Alphabetic Index, Tabular List, or another coding guideline does not provide sequencing direction, any one of the diagnoses may be sequenced first." "When the physician has documented what appears to be a current diagnosis in the body of the record, but has not included the diagnosis in the final diagnostic statement, the physician should be asked whether the diagnosis should be added." (Source [facility]oding [facility] 2 QTR90. p3-4) MARTIN
== END 2019-09-24 17:58 | disposition home or self-care (01) | DRG 167 ==
LOC: ED 19:04 → SUATTDRO 23:58 → 2E 23:58

== ENCOUNTER 2021-02-06 10:12 | Observation (INO) ==
[2021-02-06 12:21] LABS: Basophils # (auto) 0.01 K/uL (0-0.2); Basophils % (auto) 0.2 %; Eosinophils # (auto) 0.13 K/uL (0-0.5); Eosinophils % (auto) 2.5 %; Hematocrit (blood only) 27.3 % (37-47); Hemoglobin 8.9 g/dL (12.0-16.0); Immature Granulocytes # (auto) 0.01 K/uL (0.00-0.02); Immature Granulocytes % (auto) 0.2 %; Lymphocytes # (auto) 0.94 K/uL (1.2-3.4); Lymphocytes % (auto) 18.1 %; Mean Corpuscular Hemoglobin 31.9 pg (25-34); Mean Corpuscular Hgb Conc 32.6 g/dL (32-36); Mean Corpuscular Volume 97.8 fL (80-100); Mean Platelet Volume 10.4 fL (7.4-10.4); Monocytes # (auto) 0.97 K/uL (0.11-0.59); Monocytes % (auto) 18.7 %; Neutrophils # (auto) 3.13 K/uL (1.4-6.5); Neutrophils % (auto) 60.3 %; Platelet Count 110 K/uL (130-400); RDW Coefficient of Variation 14.7 % (11.5-14.5); RDW Standard Deviation 52.5 fL (36.4-46.3); Red Blood Count 2.79 M/uL (4.2-5.4); White Blood Count 5.19 K/uL (4.8-10.8)
[2021-02-06 12:32] LABS: INR 2.1 (0.9-1.1); Partial Thromboplastin Ratio 1.7; Prothrombin Time 20.3 Seconds (9.0-12.0)
[2021-02-06 13:01] LABS: BUN Creatinine Ratio 33.6 (10-20); Calcium 8.3 mg/dl (8.5-10.1); Creatinine Clr Calc Pharmacy 64.2 ml/min; Est GFR (African American) 95.5 ml/min; Est GFR (Non-African American) 82.4 ml/min; Potassium 3.6 mmol/L (3.5-5.1)
--- NOTE | 2021-02-06 13:01 | XRay Report ---
XR chest 1V portable CLINICAL HISTORY: Chest Pain COMPARISON STUDY: February 01, 2020 FINDINGS: No pneumothorax. No pleural effusion. Redemonstration of few linear densities at the left base associated with mildly elevated left hemidia phragm could represent small atelectasis or scarring. Cardiomediastinal silhouette is within upper limits of normal. Aorta is calcified. No significant pulmonary vascular congestion.. Right hilum is prominent. Osseous structures: Osteopenia. Mild degenerative changes of the spine. Stable position of left-sided pacemaker with battery pack partially obscuring left lung parenchyma an d the right-sided Chemo-Port. IMPRESSION: 1. Minimal atelectasis at the left base. ACT 112: Negative or not required by law. The above report was generated using voice recognition software. It may contain grammatical, syntax o r spelling errors. Electronically signed by: Laurie Shrestha DO 02/06/2021 1:00 PM
[2021-02-06 13:03] LABS: Albumin Globulin Ratio 0.9 (0.9-2); Bilirubin,Total 0.8 mg/dl (0.2-1); Globulin 3.4 gm/dl (2.5-4.0); Total Protein 6.4 gm/dl (6.4-8.2)
--- NOTE | 2021-02-06 15:35 | Emergency Department Note ---
History of Present Illness General Chief complaint: Leg Injury/Pain Stated complaint: MAY HAVE BLOOD CLOT IN LEG Time Seen by Provider: 02/06/21 11:29 Source: patient Mode of arrival: ambulatory Limitations: no limitations History of Present Illness Maximum Pain Intensity: 3 This patient comes in with a large bruise on her left posterior calf. She is on Coumadin for history of clots as well and is paroxysmal A. fib. She said that she was weeding her garden a week ago there is no trauma she felt sore afterwards. She noticed a bruise in the posterior leg 3 to 4 days ago. She has no numbness or weakness. Denies abdominal or back pain. No chest pain shortness of breath or pleurisy. No fever or chills. She has had the Covid vaccine. Home Medications Medication Instructions Recorded Confirmed Type docusate sodium 100 mg capsule 100 mg PO DAILY PRN 02/24/19 02/06/21 History (Colace) multivitamin (Daily Multi-Vitamin) 1 tab PO MOTH 02/24/19 02/06/21 History polyethylene glycol 3350 17 17 g PO DAILY PRN gm 02/24/19 02/06/21 History gram/dose oral powder ascorbic acid (vitamin C) 500 mg 500 mg PO WESA tab 04/30/19 02/06/21 History tablet cholecalciferol (vitamin D3) 50 2,000 units PO WESA tab 04/30/19 02/06/21 History mcg (2,000 unit) tablet vitamin E 200 unit capsule 200 unit PO TUFR 09/21/19 02/06/21 History aspirin 81 mg chewable tablet 81 mg PO QAM 10/28/19 02/06/21 History food supplemt, lactose-reduced 1 ea PO QAM 12/24/19 02/06/21 History 0.04 gram-1 kcal/mL oral liquid (Boost) sertraline 50 mg tablet 75 mg PO QAM #45 tab 08/16/20 02/06/21 Rx diltiazem HCl 180 mg capsule,24 180 mg PO QAM #90 cap 10/24/20 02/06/21 Rx hr,extended release alprazolam 0.25 mg tablet 0.25 mg PO HS PRN #30 tab 11/14/20 02/06/21 Rx furosemide 40 mg tablet 40 mg PO QAM #90 tab 11/30/20 02/06/21 Rx acetaminophen 500 mg tablet 500 mg PO Q6H PRN 01/06/21 02/06/21 History warfarin 3 mg tablet See Rx Instructions PO UD tab 01/06/21 02/06/21 History potassium chloride 20 mEq 20 meq PO QAM 01/09/21 02/06/21 History tablet,extended release(part/cryst) pantoprazole 40 mg tablet,delayed 40 mg PO DAILY #30 tab 01/20/21 02/06/21 Rx release (Protonix) sotalol 240 mg tablet 240 mg PO BID #180 tab 01/31/21 02/06/21 Rx methocarbamol 750 mg tablet 750 mg PO BID PRN 02/06/21 02/06/21 History simvastatin 10 mg tablet 10 mg PO MOWEFR 02/06/21 02/06/21 History Allergies Allergy/AdvReac Type Severity Reaction Status Date / Time digoxin AdvReac Mild DIARRHEA Verified 02/06/21 12:36 Past Med/Surg History Medical History Abnormal CT scan per pt is reason for scheduled EGD/Colonoscopy Atrial fibrillation Cataract Depression Endometrial adenocarcinoma s/p robotic TLH/BSO 2017 HTN (hypertension) Hyperlipidemia Lymphoma diagnosed 08/2019 Myocardial Infarction 2008 with BM stent at [facility] On anticoagulant therapy warfarin daily Osteoarthritis Pacemaker meditronic placed 09/2012 Pleural effusion 2019 right side Surgical History History of cardiac cath 2008 with stent placed Port-A-Cath in place (10/12/19) Insertion of Mediport, right cephalic vein Dr. Chu 10-12-19 S/P bronchoscopy with biopsy 2019 S/P hemorrhoidectomy S/P hysterectomy 2017 S/P tubal ligation Family History Father Colorectal cancer Mother Ulcer Congestive heart failure Myocardial infarction Colorectal cancer Hypertension Sister Lung cancer Endometriosis Coronary arteriosclerosis Other No family history of adverse response to anesthesia Denies family history of Ovarian cancer Prostate cancer Crohn's disease Breast cancer Ulcerative colitis Social History Smoking Status: Never smoker Second Hand Exposure: No; Hx Alcohol Use: No Hx Substance Use: No Preferred Language: Romansh Communication Ability: Effective Visual Impairment: No Limitations Hearing Ability: Normal Type Copyist Required: No Beliefs That Will Affect Care: None marital status: Current Living Situation: Family Current Living Situation Comment: Oldest son lives with her current occupational status: retired Feels Safe at Home: Yes Childhood Exposure to Second-Hand Smoke: No Dental Care, Regularly: No Physical Activity Frequency: Does not Exercise Seatbelt Use: always Sunscreen Use: No Assistive Devices: Denture - Upper, Denture - Lower, Glasses and Walker Review of Systems A total of 10 systems reviewed and were otherwise negative Physical Exam Vital Signs Vital Signs - 24 hr 02/06/21 10:30 02/06/21 11:18 02/06/21 11:23 Temperature 36.3 C L Temperature Source Temporal Artery Scan Pulse Rate 80 Pulse Rate [Right Finger] 64 Pulse Rate from SpO2 Sensor Pulse Rhythm [Right Finger] Regular Pulse Strength [Right Finger] Normal Respiratory Rate 16 22 Respiratory Effort / Characteristics Non-Labored Spontaneous Respiratory Depth Normal Respiratory Pattern Regular Blood Pressure 106/63 Blood Pressure [Left Arm] 112/60 Blood Pressure Mean 77 Blood Pressure Mean [Left Arm] 77 Blood Pressure Position [Left Arm] Sitting Pulse Oximetry 92 98 97 Oxygen Delivery Method Room Air Sepsis Recent Fever Within 48 Hours No Sepsis New/Unexplained Change in Mental Status No Sepsis Action Taken by Nursing No Action Required 02/06/21 11:47 02/06/21 12:00 02/06/21 14:00 Temperature Temperature Source Pulse Rate 60 60 60 Pulse Rate [Right Finger] Pulse Rate from SpO2 Sensor 61 60 Pulse Rhythm [Right Finger] Pulse Strength [Right Finger] Respiratory Rate 20 19 19 Respiratory Effort / Characteristics Respiratory Depth Respiratory Pattern Blood Pressure 102/52 L 118/59 L Blood Pressure [Left Arm] Blood Pressure Mean 68 78 Blood Pressure Mean [Left Arm] Blood Pressure Position [Left Arm] Pulse Oximetry 97 94 97 Oxygen Delivery Method Room Air Room Air Room Air Sepsis Recent Fever Within 48 Hours Sepsis New/Unexplained Change in Mental Status Sepsis Action Taken by Nursing 02/06/21 15:41 02/06/21 16:00 02/06/21 17:00 Temperature Temperature Source Pulse Rate 60 60 62 Pulse Rate [Right Finger] Pulse Rate from SpO2 Sensor 60 60 Pulse Rhythm [Right Finger] Pulse Strength [Right Finger] Respiratory Rate 20 19 18 Respiratory Effort / Characteristics Respiratory Depth Respiratory Pattern Blood Pressure 112/63 132/64 Blood Pressure [Left Arm] Blood Pressure Mean 79 86 Blood Pressure Mean [Left Arm] Blood Pressure Position [Left Arm] Pulse Oximetry 98 96 Oxygen Delivery Method Room Air Room Air Sepsis Recent Fever Within 48 Hours Sepsis New/Unexplained Change in Mental Status Sepsis Action Taken by Nursing 02/06/21 17:45 02/06/21 17:46 02/06/21 17:47 Temperature Temperature Source Pulse Rate 70 66 Pulse Rate [Right Finger] 63 Pulse Rate from SpO2 Sensor Pulse Rhythm [Right Finger] Regular Pulse Strength [Right Finger] Normal Respiratory Rate 16 18 18 Respiratory Effort / Characteristics Non-Labored Spontaneous Respiratory Depth Normal Respiratory Pattern Regular Blood Pressure 126/60 Blood Pressure [Left Arm] 126/60 Blood Pressure Mean 82 Blood Pressure Mean [Left Arm] 82 Blood Pressure Position [Left Arm] Lying Pulse Oximetry 95 97 Oxygen Delivery Method Room Air Room Air Sepsis Recent Fever Within 48 Hours Sepsis New/Unexplained Change in Mental Status Sepsis Action Taken by Nursing 02/06/21 18:03 02/06/21 18:10 02/06/21 18:20 Temperature Temperature Source Pulse Rate 60 60 61 Pulse Rate [Right Finger] Pulse Rate from SpO2 Sensor Pulse Rhythm [Right Finger] Pulse Strength [Right Finger] Respiratory Rate 19 18 20 Respiratory Effort / Characteristics Respiratory Depth Respiratory Pattern Blood Pressure Blood Pressure [Left Arm] Blood Pressure Mean Blood Pressure Mean [Left Arm] Blood Pressure Position [Left Arm] Pulse Oximetry 95 Oxygen Delivery Method Room Air Sepsis Recent Fever Within 48 Hours Sepsis New/Unexplained Change in Mental Status Sepsis Action Taken by Nursing General: Well developed well nourished older female who appears in no acute distress, breathing comfortably on room air. Normal speech HEENT: Normal cephalic atraumatic. Pupils are equal round and reactive to light. Extraocular movements are intact. Oropharynx is pink with moist mucous membranes. No swelling of the mouth lips or tongue. Neck: Supple with a midline trachea. No meningeal signs or stiffness, no JVD or bruits. No Stridor. Chest: Clear to auscultation bilaterally. No wheezes or rhonchi. No increased work of breathing. Heart: Regular rate and rhythm without murmurs or gallops. Abdomen: Soft nontender, nondistended without rebound guarding or rigidity. Extremities: No cyanosis clubbing or edema. No calf tenderness or assymetry. She has a large bruise in the left posterior proximal leg. Distally she is neurologically neurovascular intact. There is no redness or warmth or fluctuance. Spine/Back. Non tender to palpation. No CVA tenderness Skin: Good turgor without rashes. She has bruises throughout her skin and she says she bruises easily Neurologic exam: Cranial nerves two through 12 are intact. Motor and sensation are intact and symmetrical throughout. Course Administered Medications Sodium Chloride (Nss) 250 mls @ 15 mls/hr IV .[id number] PRN PRN Reason: For Transfusion Stop: 02/07/21 02:30 Last Admin: 02/06/21 17:53 Dose: 15 mls/hr Documented by: [id number] Discontinued Medications Ioversol (Optiray 320 100ml) 94 ml IV ONCE ONE Stop: 02/06/21 17:11 Last Admin: 02/06/21 17:10 Dose: 94 ml Documented by: [id number] Phytonadione (Phytonadione 5 Mg Tab) 5 mg PO NOW STA Stop: 02/06/21 17:46 Last Admin: 02/06/21 17:54 Dose: 5 mg Documented by: [id number] Medical Decision Making Differential Diagnosis DVT, hematoma, infection, electrolyte or metabolic abnormality, hematologic disorder, infection, Covid Medical Records Attestation: I reviewed the patient's medical records. Home Medications Current Medication List: was personally reviewed by me Laboratory Data Attestation: I reviewed the patient's lab results. Result diagrams: 02/06/21 12:10 02/06/21 12:10 Lab Results 02/06/21 02/06/21 02/06/21 Range/Units 12:10 12:10 12:10 WBC 5.19 (4.8-10.8) K/uL RBC 2.79 L (4.2-5.4) M/uL Hgb 8.9 L (12.0-16.0) g/dL Hct 27.3 L (37-47) % MCV 97.8 (80-100) fL MCH 31.9 (25-34) pg MCHC 32.6 (32-36) g/dL RDW Std Deviation 52.5 H (36.4-46.3) fL RDW Coeff of Cem 14.7 H (11.5-14.5) % Plt Count 110 L (130-400) K/uL MPV 10.4 (7.4-10.4) fL Immature Gran % (Auto) 0.2 % Neut % (Auto) 60.3 % Lymph % (Auto) 18.1 % York % (Auto) 18.7 % Eos % (Auto) 2.5 % Baso % (Auto) 0.2 % Neut # (Auto) 3.13 (1.4-6.5) K/uL Lymph # (Auto) 0.94 L (1.2-3.4) K/uL York # (Auto) 0.97 H (0.11-0.59) K/uL Eos # (Auto) 0.13 (0-0.5) K/uL Baso # (Auto) 0.01 (0-0.2) K/uL Immature Gran # (Auto) 0.01 (0.00-0.02) K/uL PT 20.3 H (9.0-12.0) Seconds INR 2.1 H (0.9-1.1) APTT 45.0 H (21.0-31.0) Seconds PTT Ratio 1.7 Sodium 135 L (136-145) mmol/L Potassium 3.6 (3.5-5.1) mmol/L Chloride 107 (98-107) mmol/L Carbon Dioxide 29 (21-32) mmol/L Anion Gap -1.0 L (3-11) BUN 21 H (7-18) mg/dl Creatinine 0.63 (0.6-1.2) mg/dl Est Cr Clr Drug Dosing 64.2 ml/min Est GFR ( Amer) 95.5 ml/min Est GFR (Non-Af Amer) 82.4 ml/min BUN/Creatinine Ratio 33.6 H (10-20) Glucose 88 (70-99) mg/dl Calcium 8.3 L (8.5-10.1) mg/dl Total Bilirubin 0.8 (0.2-1) mg/dl AST 24 (15-37) U/L ALT 25 (12-78) U/L Alkaline Phosphatase 77 (45-117) U/L Total Protein 6.4 (6.4-8.2) gm/dl Albumin 3.0 L (3.4-5.0) gm/dl Globulin 3.4 (2.5-4.0) gm/dl Albumin/Globulin Ratio 0.9 (0.9-2) Lipase 153 (73-393) U/L Blood Type Antibody Screen Crossmatch 02/06/21 Range/Units 16:43 WBC (4.8-10.8) K/uL RBC (4.2-5.4) M/uL Hgb (12.0-16.0) g/dL Hct (37-47) % MCV (80-100) fL MCH (25-34) pg MCHC (32-36) g/dL RDW Std Deviation (36.4-46.3) fL RDW Coeff of Cem (11.5-14.5) % Plt Count (130-400) K/uL MPV (7.4-10.4) fL Immature Gran % (Auto) % Neut % (Auto) % Lymph % (Auto) % York % (Auto) % Eos % (Auto) % Baso % (Auto) % Neut # (Auto) (1.4-6.5) K/uL Lymph # (Auto) (1.2-3.4) K/uL York # (Auto) (0.11-0.59) K/uL Eos # (Auto) (0-0.5) K/uL Baso # (Auto) (0-0.2) K/uL Immature Gran # (Auto) (0.00-0.02) K/uL PT (9.0-12.0) Seconds INR (0.9-1.1) APTT (21.0-31.0) Seconds PTT Ratio Sodium (136-145) mmol/L Potassium (3.5-5.1) mmol/L Chloride (98-107) mmol/L Carbon Dioxide (21-32) mmol/L Anion Gap (3-11) BUN (7-18) mg/dl Creatinine (0.6-1.2) mg/dl Est Cr Clr Drug Dosing ml/min Est GFR ( Amer) ml/min Est GFR (Non-Af Amer) ml/min BUN/Creatinine Ratio (10-20) Glucose (70-99) mg/dl Calcium (8.5-10.1) mg/dl Total Bilirubin (0.2-1) mg/dl AST (15-37) U/L ALT (12-78) U/L Alkaline Phosphatase (45-117) U/L Total Protein (6.4-8.2) gm/dl Albumin (3.4-5.0) gm/dl Globulin (2.5-4.0) gm/dl Albumin/Globulin Ratio (0.9-2) Lipase (73-393) U/L Blood Type O Positive Antibody Screen NEGATIVE Crossmatch See Detail Imaging Data Attestation: I personally reviewed and interpreted this imaging study as follows: My Impression: Chest x-rayno acute infiltrate, failure, pneumothorax seen Radiologist's Impression: Venous Doppler Study 02/06/21 11:39 US venous doppler LE LT HISTORY: 85 years-old Female evalk for DVT, hematoma acute pain and swelling of the left lower extremity COMPARISON: None TECHNIQUE: Multiple real-time sonographic images of the left lower extremity were obtained assessing grayscale appearance, color and spectral flow FINDINGS: Normal flow, compressibility, phasicity and augmentation. Within the distal aspect of the medial thigh there is a complex mixed echogenicity intramuscular collection measuring 20.7 x 4.3 cm. IMPRESSION: 1. No DVT. 2. Mixed echogenicity lesion without color flow within the medial proximal to the distal thigh measuring over 20 cm in length is suggestive of an intramuscular hematoma. ACT 112: Negative or not required by law. The above report was generated using voice recognition software. It may contain grammatical, syntax or spelling errors. Electronically signed by: Gianni Rodriguez M.D. 02/06/2021 3:34 PM Chest X-Ray 02/06/21 11:40 XR chest 1V portable CLINICAL HISTORY: Chest Pain COMPARISON STUDY: February 01, 2020 FINDINGS: No pneumothorax. No pleural effusion. Redemonstration of few linear densities at the left base associated with mildly elevated left hemidiaphragm could represent small atelectasis or scarring. Cardiomediastinal silhouette is within upper limits of normal. Aorta is calcified. No significant pulmonary vascular congestion.. Right hilum is prominent. Osseous structures: Osteopenia. Mild degenerative changes of the spine. Stable position of left-sided pacemaker with battery pack partially obscuring left lung parenchyma and the right-sided Chemo-Port. IMPRESSION: 1. Minimal atelectasis at the left base. ACT 112: Negative or not required by law. The above report was generated using voice recognition software. It may contain grammatical, syntax or spelling errors. Electronically signed by: Laurie Shrestha DO 02/06/2021 1:[address] 02/06/21 16:48 CT SCAN OF THE LEFT FEMUR WITH IV CONTRAST CLINICAL HISTORY: Thigh hematoma. COMPARISON STUDY: CT scan of the pelvis dated 12/14/2020. TECHNIQUE: Following the IV administration of 94 cc of Optiray 320, CT scan of the left femur is performed from the bony pelvis to the knee. Images are reviewed in the axial, sagittal, and coronal planes. IV contrast was administered without complication. A dose lowering technique was utilized adhering to the principles of ALARA. CT DOSE: 444.97 mGy.cm FINDINGS: The skeletal structures are osteopenic. There is no evidence of left femoral fracture. The visualized left hemipelvis appears intact. Imaged portions of the tibia and fibula appear intact. The hip and knee joints appear maintained noting degenerative change. No lytic or blastic lesion is seen. There is a large hematoma identified within the medial left thigh in the region of the hamstrings musculature. Some of this may be intramuscular. The hematoma measures approximately 19 x 6 x 7.5 cm in aggregate dimension and contains internal hematocrit levels. Although difficult to assess due to significant streak artifact, tiny foci of active extravasation are suspected (axial images #198, #225, and #246). There is advanced atherosclerotic calcification of the left femoral artery which remains patent. There is no left pelvic sidewall or inguinal lymphadenopathy. No soft tissue gas is identified in the left thigh. The bladder is normal as visualized. IMPRESSION: 1. There is no evidence of left femoral fracture. 2. There is a large hematoma in the medial thigh centered within the hamstrings musculature as detailed above. 3. Small foci of active extravasation are suspected. ACT 112: Negative or not required by law. Electronically signed by: Nishant Rod M.D. 02/06/2021 5:26 PM ECG Data Attestation: I personally reviewed and interpreted this ECG as follows: Indication: + weakness Rate (beats per minute): 62 Rhythm: + other (Paced rhythm) ECG Intervals/blocks: + Normal QRS and + Normal QT ECG [place]: + Normal ECG ST segments: + Normal ST segments ECG Findings: no PACs or no PVCs Comparison ECG Date: from (3/25/20) Change: no significant change MDM Narrative This patient comes in as described above. She has a large bruise on the posterior leg. She is hemodynamically stable. IV access established she is on Coumadin. A extensive work-up was obtained. Her hemoglobin is 8.9 which is down from the 11 range so she has dropped her hemoglobin couple grams. She is hemodynamically stable. She has no evidence of compartment syndrome. She is neurologically and neurovascularly intact. EKG shows a paced rhythm without ischemic changes. She is on Coumadin and her INR is 2.1. I did ultrasound there is no evidence of DVT there is however a 20 x 4.5 cm hematoma. Given the fact that she has a large hematoma is anticoagulated and has dropped her hemoglobin I do think she should be admitted/observed. I have consulted the [facility] hospitalist to see her in ER for these measures. She was given vitamin K 5 mg p.o. after discussing with the hospitalist. She was also typed and crossed for possible blood transfusion should her hemoglobin drop further. Continuous cardiac monitoring: Orders placed in EMR for continuous cardiac monitoring. Upon my interpretation patient was noted to be a paced rhythm at 60. Impression & Plan Anemia, Current use of inspector clip on sunglasses anticoagulation, Hematoma, History of lymphoma Discharge Plan Visit Data Chief Complaint: Leg Injury/Pain Stated Complaint: MAY HAVE BLOOD CLOT IN LEG ED Provider: Andrew Goodrich Discharge Problem: Anemia, Current use of snf anticoagulation, Hematoma, History of lymphoma Forms Stand Alone Forms: My [facility] Prescriptions Prescriptions: No Action warfarin 3 mg tablet See Rx Instructions PO UD RF: 0 acetaminophen 500 mg tablet 500 mg PO Q6H PRN (Reason: Pain) RF: 0 aspirin 81 mg tablet,chewable 81 mg PO QAM RF: 0 sertraline 50 mg tablet 75 mg PO QAM Qty: 45 RF: 5 diltiazem HCl 180 mg capsule,extended release 24 hr 180 mg PO QAM Qty: 90 RF: 3 furosemide 40 mg tablet 40 mg PO QAM Qty: 90 RF: 1 sotalol 240 mg tablet 240 mg PO BID Qty: 180 RF: 3 docusate sodium [Colace] 100 mg capsule 100 mg PO DAILY PRN (Reason: Constipation) RF: 0 polyethylene glycol 3350 17 gram/dose powder 17 g PO DAILY PRN (Reason: Constipation) RF: 0 multivitamin [Daily Multi-Vitamin] tablet 1 tab PO MOTH RF: 0 ascorbic acid (vitamin C) 500 mg tablet 500 mg PO WESA RF: 0 cholecalciferol (vitamin D3) 2,000 unit tablet 2,000 units PO WESA RF: 0 pantoprazole [Protonix] 40 mg tablet,delayed release (DR/EC) 40 mg PO DAILY Qty: 30 RF: 5 alprazolam 0.25 mg tablet 0.25 mg PO HS PRN (Reason: Insomnia) Qty: 30 RF: 0 vitamin E 200 unit Capsule 200 unit PO TUFR RF: 0 Boost 0.04 gram- 1 kcal/mL Liquid 1 ea PO QAM RF: 0 potassium chloride 20 mEq tablet,ER particles/crystals 20 meq PO QAM RF: 0 methocarbamol 750 mg Tablet 750 mg PO BID PRN (Reason: Pain) RF: 0 simvastatin 10 mg tablet 10 mg PO MOWEFR RF: 0 Referrals Referrals: Matt Saldaña DO [Primary Care Provider] - Discharge Problem: Anemia Qualifiers: Anemia type: other cause
--- NOTE | 2021-02-06 15:35 | Ultrasound Report ---
US venous doppler LE LT HISTORY: 85 years-old Female evalk for DVT, hematoma acute pain and swelling of the left lower extre mity COMPARISON: None TECHNIQUE: Multiple real-time sonographic images of the left lower extremity were obtained assessing grayscale appearance, color and spectral flow FINDINGS: Normal flow, compressibility, phasicity and augmentation. Within the distal aspect of the medial thig h there is a complex mixed echogenicity intramuscular collection measuring 20.7 x 4.3 cm. IMPRESSION: 1. No DVT. 2. Mixed echogenicity lesion without color flow within the medial proximal to the distal thigh measur ing over 20 cm in length is suggestive of an intramuscular hematoma. ACT 112: Negative or not required by law. The above report was generated using voice recognition software. It may contain grammatical, syntax o r spelling errors. Electronically signed by: Gianni Rodriguez M.D. 02/06/2021 3:34 PM
[2021-02-06] MEDS ORDERED: SODIUM CHLORIDE 0.9% 250 ML IV PRN (16:30)
[2021-02-06] MEDS ORDERED: OPTIRAY 320 100ml IV ONE (17:10)
--- NOTE | 2021-02-06 17:27 | CT Scan Report ---
CT SCAN OF THE LEFT FEMUR WITH IV CONTRAST CLINICAL HISTORY: Thigh hematoma. COMPARISON STUDY: CT scan of the pelvis dated 12/14/2020. TECHNIQUE: Following the IV administration of 94 cc of Optiray 320, CT scan of the left femur is per formed from the bony pelvis to the knee. Images are reviewed in the axial, sagittal, and coronal plan es. IV contrast was administered without complication. A dose lowering technique was utilized adheri ng to the principles of ALARA. CT DOSE: 444.97 mGy.cm FINDINGS: The skeletal structures are osteopenic. There is no evidence of left femoral fracture. The visualized left hemipelvis appears intact. Imaged portions of the tibia and fibula appear intact. The hip and knee joints appear maintained noting degenerative change. No lytic or blastic lesion is seen . There is a large hematoma identified within the medial left thigh in the region of the hamstrings m usculature. Some of this may be intramuscular. The hematoma measures approximately 19 x 6 x 7.5 cm in aggregate dimension and contains internal hematocrit levels. Although difficult to assess due to sig nificant streak artifact, tiny foci of active extravasation are suspected (axial images #198, #225, a nd #246). There is advanced atherosclerotic calcification of the left femoral artery which remains pa tent. There is no left pelvic sidewall or inguinal lymphadenopathy. No soft tissue gas is identified in the left thigh. The bladder is normal as visualized. IMPRESSION: 1. There is no evidence of left femoral fracture. 2. There is a large hematoma in the medial thigh centered within the hamstrings musculature as detail ed above. 3. Small foci of active extravasation are suspected. ACT 112: Negative or not required by law. Electronically signed by: Nishant Rod M.D. 02/06/2021 5:26 PM
--- NOTE | 2021-02-06 17:30 | History & Physical Report ---
Date of Service February 06, 2021 Assessment & Plan (1) Spontaneous hematoma of thigh: Plan: Thigh Hematoma Spontaneous, no report of inciting injury - Hgb drop from 11.3 to 8.9 - CT: There is no evidence of left femoral fracture. There is a large hematoma in the medial thigh centered within the hamstrings musculature as detailed above. Small foci of active extravasation are suspected. - Extravasation noted on CT-femur, additional CT results as noted above - Vitamin K 10mg total give, + KCentra given hgb drop and ongoing bleeding/extravasation -Repeat hemoglobin pending, repeat hemoglobin in 6 hours Admit to PCU Risk/benefits of warfarin reversal in the setting of history of DVT and A. fib versus active bleeding discussed with patient. On shared decision making will reverse warfarin as above. Neurovascularly intact, no signs of compartment syndrome on exam. Neuro checks every 4 hours CBC/BMP every morning Type/cross ordered by ER (2) Coronary artery disease: Plan: History of coronary artery disease status post PCI, stable No chest pain, no signs of acute exacerbation on admission Continue sotalol, diltiazem, simvastatin home doses Aspirin held in the setting of acute bleed Continue Lasix home dose (3) Paroxysmal atrial fibrillation: Plan: Warfarin held/reversed as above In sinus at time of assessment Continue for mir/calcium channel mir as above (4) SSS (sick sinus syndrome): Plan: Pacer in place, sinus rhythm at time of assessment (5) Presence of cardiac pacemaker: (6) DVT (deep venous thrombosis): Plan: History of DVT, left warfarin management as above (7) Large B-cell lymphoma: Plan: Patient treated with chemotherapy as outpatient, followed by Dr. Hughes Received chemo September to November 2019, subsequently in remission Patient converted from DOAC to warfarin previously, warfarin managed as above (8) HTN (hypertension): Plan: Continue beta-mir, calcium channel mir as above Normotensive at time of admission History of Present Illness Chief Complaint: L Thigh Hematoma Primary Care Provider: DO Ly Estes is an 85yo F with a PMHx of Afib on coumadin who presents with a large hematoma of the L calf with hgb decrease of ~3 points. Patient reports that she has been in her normal state of health, but noticed a spreading bruise along the back of her left thigh which appeared this morning but continued to spread. She reports that she is on warfarin and has been told that she should present to the doctor for signs of bleeding. 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 She completed chemotherapy from September to November [address] Hughes, lymphoma is in remission. She denies any injury, notes that she was stretching while gardening but has not felt a tear/snap/pop or pain in her leg, has not had any falls, and has not bumped her leg to her knowledge. She reports she lives at home with her son, no sick contacts in the home and is able to ambulate independently. Denies other bleeding, reports other bruising, no history of clinically significant bleeds per patient. She denies lightheadedness, dizziness, shortness of breath, chest pain prior to this. Denies syncope/presyncope. She reports she had one episode of lightheadedness while in the hospital when they set her up for an x-ray, otherwise none. Medical History: Reviewed Medications: Reviewed Surgical History: Reviewed Allergies: Reviewed Social History: Reviewed Code Status: Full code discussed with patient Allergies Allergy/AdvReac Type Severity Reaction Status Date / Time digoxin AdvReac Mild DIARRHEA Verified 02/06/21 12:36 Home Medications Medication Instructions Recorded Confirmed Type docusate sodium 100 mg capsule 100 mg PO DAILY PRN 02/24/19 02/06/21 History (Colace) multivitamin (Daily Multi-Vitamin) 1 tab PO MOTH 02/24/19 02/06/21 History polyethylene glycol 3350 17 17 g PO DAILY PRN gm 02/24/19 02/06/21 History gram/dose oral powder ascorbic acid (vitamin C) 500 mg 500 mg PO WESA tab 04/30/19 02/06/21 History tablet cholecalciferol (vitamin D3) 50 2,000 units PO WESA tab 04/30/19 02/06/21 History mcg (2,000 unit) tablet vitamin E 200 unit capsule 200 unit PO TUFR 09/21/19 02/06/21 History aspirin 81 mg chewable tablet 81 mg PO QAM 10/28/19 02/06/21 History food supplemt, lactose-reduced 1 ea PO QAM 12/24/19 02/06/21 History 0.04 gram-1 kcal/mL oral liquid (Boost) sertraline 50 mg tablet 75 mg PO QAM #45 tab 08/16/20 02/06/21 Rx diltiazem HCl 180 mg capsule,24 180 mg PO QAM #90 cap 10/24/20 02/06/21 Rx hr,extended release alprazolam 0.25 mg tablet 0.25 mg PO HS PRN #30 tab 11/14/20 02/06/21 Rx furosemide 40 mg tablet 40 mg PO QAM #90 tab 11/30/20 02/06/21 Rx acetaminophen 500 mg tablet 500 mg PO Q6H PRN 01/06/21 02/06/21 History warfarin 3 mg tablet See Rx Instructions PO UD tab 01/06/21 02/06/21 History potassium chloride 20 mEq 20 meq PO QAM 01/09/21 02/06/21 History tablet,extended release(part/cryst) pantoprazole 40 mg tablet,delayed 40 mg PO DAILY #30 tab 01/20/21 02/06/21 Rx release (Protonix) sotalol 240 mg tablet 240 mg PO BID #180 tab 01/31/21 02/06/21 Rx methocarbamol 750 mg tablet 750 mg PO BID PRN 02/06/21 02/06/21 History simvastatin 10 mg tablet 10 mg PO MOWEFR 02/06/21 02/06/21 History Past Med/Surg History Medical History Abnormal CT scan per pt is reason for scheduled EGD/Colonoscopy Atrial fibrillation Cataract Depression Endometrial adenocarcinoma s/p robotic TLH/BSO 2017 HTN (hypertension) Hyperlipidemia Lymphoma diagnosed 08/2019 Myocardial Infarction 2008 with BM stent at [facility] On anticoagulant therapy warfarin daily Osteoarthritis Pacemaker meditronic placed 09/2012 Pleural effusion 2019 right side Surgical History History of cardiac cath 2008 with stent placed Port-A-Cath in place (10/12/19) Insertion of Mediport, right cephalic vein Dr. Chu 10-12-19 S/P bronchoscopy with biopsy 2019 S/P hemorrhoidectomy S/P hysterectomy 2017 S/P tubal ligation Family History Father Colorectal cancer Mother Ulcer Congestive heart failure Myocardial infarction Colorectal cancer Hypertension Sister Lung cancer Endometriosis Coronary arteriosclerosis Other No family history of adverse response to anesthesia Denies family history of Ovarian cancer Prostate cancer Crohn's disease Breast cancer Ulcerative colitis Social History Smoking Status: Never smoker Second Hand Exposure: No; Hx Alcohol Use: No Hx Substance Use: No Preferred Language: Yakut Communication Ability: Effective Visual Impairment: No Limitations Hearing Ability: Normal Tape Weaver Required: No Beliefs That Will Affect Care: None marital status: Current Living Situation: Family Current Living Situation Comment: Oldest son lives with her current occupational status: retired Feels Safe at Home: Yes Childhood Exposure to Second-Hand Smoke: No Dental Care, Regularly: No Physical Activity Frequency: Does not Exercise Seatbelt Use: always Sunscreen Use: No Assistive Devices: Denture - Upper, Denture - Lower, Glasses and Walker Review of Systems Review of Systems: 10 point review of systems negative except as noted in HPI Physical Exam Physical Exam: General: A&Ox3. NAD. Cooperative. HEENT: Atraumatic, normocephalic. Pupils equal and reactive to light and accommodation. Vision grossly intact. Hearing grossly intact. Pulm: CTAB A&P. -wheezes, -rales, -rhonchi. Symmetrical chest rise. No increase work of breathing. No respiratory distress. Cardiac: RRR, -mrg. Radial pulses intact and symmetrical. Abdominal: Nontender, nondistended, soft. BS present. Extremity: Left posterior thigh with hematoma extending from the gluteal crease to approximately 2-3 cm distal to the popliteal fossa. Nontender to palpation. PT pulse intact bilaterally. Patient reports chronic paresthesia and tingling following chemotherapy with no acute change. Sensation to soft touch in feet intact bilaterally without asymmetry. PT pulse intact bilaterally without asymmetry. Hip flexion, ankle flexion/dorsiflexion, [employer] worker strength intact 5 out of 5 bilaterally. Results & Data Results & Data ([facility]) Vital Signs (Past 12 Hours) Vital Signs Temp Pulse Pulse Resp BP BP Pulse Ox 02/06/21 16:00 60 19 112/63 96 02/06/21 15:41 60 20 98 02/06/21 14:00 60 19 118/59 L 97 02/06/21 12:00 60 19 102/52 L 94 02/06/21 11:47 60 20 97 02/06/21 11:23 64 22 112/60 97 02/06/21 11:18 98 02/06/21 10:30 36.3 C L 80 16 106/63 92 Laboratory Results Abnormal lab results 02/06/21 02/06/21 02/06/21 Range/Units 12:10 12:10 12:10 RBC 2.79 L (4.2-5.4) M/uL Hgb 8.9 L (12.0-16.0) g/dL Hct 27.3 L (37-47) % RDW Std Deviation 52.5 H (36.4-46.3) fL RDW Coeff of Cem 14.7 H (11.5-14.5) % Plt Count 110 L (130-400) K/uL Lymph # (Auto) 0.94 L (1.2-3.4) K/uL [place] # (Auto) 0.97 H (0.11-0.59) K/uL PT 20.3 H (9.0-12.0) Seconds INR 2.1 H (0.9-1.1) APTT 45.0 H (21.0-31.0) Seconds Sodium 135 L (136-145) mmol/L Anion Gap -1.0 L (3-11) BUN 21 H (7-18) mg/dl BUN/Creatinine Ratio 33.6 H (10-20) Calcium 8.3 L (8.5-10.1) mg/dl Albumin 3.0 L (3.4-5.0) gm/dl Crossmatch 02/06/21 Range/Units 16:43 RBC (4.2-5.4) M/uL Hgb (12.0-16.0) g/dL Hct (37-47) % RDW Std Deviation (36.4-46.3) fL RDW Coeff of Cem (11.5-14.5) % Plt Count (130-400) K/uL Lymph # (Auto) (1.2-3.4) K/uL [place] # (Auto) (0.11-0.59) K/uL PT (9.0-12.0) Seconds INR (0.9-1.1) APTT (21.0-31.0) Seconds Sodium (136-145) mmol/L Anion Gap (3-11) BUN (7-18) mg/dl BUN/Creatinine Ratio (10-20) Calcium (8.5-10.1) mg/dl Albumin (3.4-5.0) gm/dl Crossmatch See Detail Diagnostic Findings Venous Doppler Study 02/06/21 11:39 US venous doppler LE LT HISTORY: 85 years-old Female evalk for DVT, hematoma acute pain and swelling of the left lower extremity COMPARISON: None TECHNIQUE: Multiple real-time sonographic images of the left lower extremity were obtained assessing grayscale appearance, color and spectral flow FINDINGS: Normal flow, compressibility, phasicity and augmentation. Within the distal aspect of the medial thigh there is a complex mixed echogenicity intramuscular collection measuring 20.7 x 4.3 cm. IMPRESSION: 1. No DVT. 2. Mixed echogenicity lesion without color flow within the medial proximal to the distal thigh measuring over 20 cm in length is suggestive of an intramuscular hematoma. ACT 112: Negative or not required by law. The above report was generated using voice recognition software. It may contain grammatical, syntax or spelling errors. Electronically signed by: Gianni Rodriguez M.D. 02/06/2021 3:34 PM Chest X-Ray 02/06/21 11:40 XR chest 1V portable CLINICAL HISTORY: Chest Pain COMPARISON STUDY: February 01, 2020 FINDINGS: No pneumothorax. No pleural effusion. Redemonstration of few linear densities at the left base associated with mildly elevated left hemidiaphragm could represent small atelectasis or scarring. Cardiomediastinal silhouette is within upper limits of normal. Aorta is calcified. No significant pulmonary vascular congestion.. Right hilum is prominent. Osseous structures: Osteopenia. Mild degenerative changes of the spine. Stable position of left-sided pacemaker with battery pack partially obscuring left lung parenchyma and the right-sided Chemo-Port. IMPRESSION: 1. Minimal atelectasis at the left base. ACT 112: Negative or not required by law. The above report was generated using voice recognition software. It may contain grammatical, syntax or spelling errors. Electronically signed by: Laurie Shrestha DO 02/06/2021 1:[address] 02/06/21 16:48 CT SCAN OF THE LEFT FEMUR WITH IV CONTRAST CLINICAL HISTORY: Thigh hematoma. COMPARISON STUDY: CT scan of the pelvis dated 12/14/2020. TECHNIQUE: Following the IV administration of 94 cc of Optiray 320, CT scan of the left femur is performed from the bony pelvis to the knee. Images are reviewed in the axial, sagittal, and coronal planes. IV contrast was administered without complication. A dose lowering technique was utilized adhering to the principles of ALARA. CT DOSE: 444.97 mGy.cm FINDINGS: The skeletal structures are osteopenic. There is no evidence of left femoral fracture. The visualized left hemipelvis appears intact. Imaged portions of the tibia and fibula appear intact. The hip and knee joints appear maintained noting degenerative change. No lytic or blastic lesion is seen. There is a large hematoma identified within the medial left thigh in the region of the hamstrings musculature. Some of this may be intramuscular. The hematoma measures approximately 19 x 6 x 7.5 cm in aggregate dimension and contains internal hematocrit levels. Although difficult to assess due to significant streak artifact, tiny foci of active extravasation are suspected (axial images #198, #225, and #246). There is advanced atherosclerotic calcification of the left femoral artery which remains patent. There is no left pelvic sidewall or inguinal lymphadenopathy. No soft tissue gas is identified in the left thigh. The bladder is normal as visualized. IMPRESSION: 1. There is no evidence of left femoral fracture. 2. There is a large hematoma in the medial thigh centered within the hamstrings musculature as detailed above. 3. Small foci of active extravasation are suspected. ACT 112: Negative or not required by law. Electronically signed by: Nishant Rod M.D. 02/06/2021 5:26 PM Medications Administered Home Medications docusate sodium 100 mg capsule (Colace) 100 mg PO DAILY PRN 02/24/19 [History Confirmed 02/06/21] multivitamin (Daily Multi-Vitamin) 1 tab PO MOTH 02/24/19 [History Confirmed 02/06/21] polyethylene glycol 3350 17 gram/dose oral powder 17 g PO DAILY PRN gm 02/24/19 [History Confirmed 02/06/21] ascorbic acid (vitamin C) 500 mg tablet 500 mg PO WESA tab 04/30/19 [History Confirmed 02/06/21] cholecalciferol (vitamin D3) 50 mcg (2,000 unit) tablet 2,000 units PO WESA tab 04/30/19 [History Confirmed 02/06/21] vitamin E 200 unit capsule 200 unit PO TUFR 09/21/19 [History Confirmed 02/06/21] aspirin 81 mg chewable tablet 81 mg PO QAM 10/28/19 [History Confirmed 02/06/21] food supplemt, lactose-reduced 0.04 gram-1 kcal/mL oral liquid (Boost) 1 ea PO QAM 12/24/19 [History Confirmed 02/06/21] sertraline 50 mg tablet 75 mg PO QAM #45 tab 08/16/20 [Rx Confirmed 02/06/21] diltiazem HCl 180 mg capsule,24 hr,extended release 180 mg PO QAM #90 cap 10/24/20 [Rx Confirmed 02/06/21] alprazolam 0.25 mg tablet 0.25 mg PO HS PRN #30 tab 11/14/20 [Rx Confirmed 02/06/21] furosemide 40 mg tablet 40 mg PO QAM #90 tab 11/30/20 [Rx Confirmed 02/06/21] acetaminophen 500 mg tablet 500 mg PO Q6H PRN 01/06/21 [History Confirmed 02/06/21] warfarin 3 mg tablet See Rx Instructions PO UD tab 01/06/21 [History Confirmed 02/06/21] potassium chloride 20 mEq tablet,extended release(part/cryst) 20 meq PO QAM 01/09/21 [History Confirmed 02/06/21] pantoprazole 40 mg tablet,delayed release (Protonix) 40 mg PO DAILY #30 tab 01/20/21 [Rx Confirmed 02/06/21] sotalol 240 mg tablet 240 mg PO BID #180 tab 01/31/21 [Rx Confirmed 02/06/21] methocarbamol 750 mg tablet 750 mg PO BID PRN 02/06/21 [History Confirmed 02/06/21] simvastatin 10 mg tablet 10 mg PO MOWEFR 02/06/21 [History Confirmed 02/06/21] Active Medications Sodium Chloride (Nss) 250 mls @ 15 mls/hr IV .[id number] PRN PRN Reason: For Transfusion Stop: 02/07/21 02:30 Last Admin: 02/06/21 17:53 Dose: 15 mls/hr Documented by: PG Care Time/CCT Total # of Minutes Spent Total Time Spent with Patient: Total time spent is greater than 50% in coordination of care (as documented) at patient's floor/unit and/or counseling patient: Coding Level of Care Code 89373 Initial Inpt Care Lvl 3 Diagnoses Spontaneous hematoma of thigh R23.3 Coronary artery disease I25.10 Coronary Disease-Associated Artery/Lesion type: [place] artery [place] vs. transplanted heart: hoopa heart Associated angina: without angina Paroxysmal atrial fibrillation I48.0 SSS (sick sinus syndrome) I49.5 Presence of cardiac pacemaker Z95.0 DVT (deep venous thrombosis) I82.409 Large B-cell lymphoma C85.10 HTN (hypertension) I10 (1) Coronary artery disease Coronary Disease-Associated Artery/Lesion type: [place] artery [place] vs. transplanted heart: hoopa heart Associated angina: without angina Qualified Code(s): I25.10 - Atherosclerotic heart disease of ho[place] coronary artery without angina pectoris
[2021-02-06] MEDS ORDERED: PHYTONADIONE 5 MG TAB PO STA (17:45)
[2021-02-06] MEDS ORDERED: PROTHROMBIN COMP CONC- KCENTRA 2,000 UNITS in SYRINGE 0 ML IV STA (18:07)
--- NOTE | 2021-02-06 18:10 | Electrocardiogram Report ---
Test Reason : Blood Pressure : / mmHG Vent. Rate : 061 BPM Atrial Rate : 061 BPM P-R Int : 000 ms QRS Dur : 104 ms QT Int : 492 ms P-R-T Axes : 000 -03 058 degrees QTc Int : 495 ms Atrial-paced rhythm possible Inferior infarct (cited on or before 11-JAN-2013) Abnormal ECG When compared with ECG of 23-SEP-2019 06:17, Anterior infarct is now Present T wave inversion no longer evident in Inferior leads Confirmed by Alan Valle ([id number]) on 02/06/2021 6:10:06 PM Referred By: Matt Saldaña Confirmed By:Israel Valle
[2021-02-06 19:13] LABS: Fibrinogen 500 mg/dl (184-400); INR 1.9 (0.9-1.1); Partial Thromboplastin Ratio 1.6; Partial Thromboplastin Time 41.9 Seconds (21.0-31.0); Prothrombin Time 18.3 Seconds (9.0-12.0)
[2021-02-06] MEDS ORDERED: DC ALL ANTICOAGULANTS ONE (22:39)
[2021-02-06] MEDS ORDERED: ACETAMINOPHEN 325 MG TAB PO PRN (22:39)
[2021-02-06] MEDS ORDERED: PHYTONADIONE 5 MG in SODIUM CHLORIDE 0.9% 50 ML IV ONE (23:00)
[2021-02-06 23:20] LABS: Basophils # (auto) 0.01 K/uL (0-0.2); Basophils % (auto) 0.2 %; Eosinophils # (auto) 0.18 K/uL (0-0.5); Eosinophils % (auto) 4.4 %; Hematocrit (blood only) 27.7 % (37-47); Hemoglobin 9.2 g/dL (12.0-16.0); Lymphocytes # (auto) 0.87 K/uL (1.2-3.4); Lymphocytes % (auto) 21.4 %; Mean Corpuscular Hemoglobin 32.7 pg (25-34); Mean Corpuscular Hgb Conc 33.2 g/dL (32-36); Mean Corpuscular Volume 98.6 fL (80-100); Mean Platelet Volume 10.6 fL (7.4-10.4); Monocytes % (auto) 17.2 %; Neutrophils # (auto) 2.31 K/uL (1.4-6.5); Neutrophils % (auto) 56.8 %; Platelet Count 105 K/uL (130-400); RDW Coefficient of Variation 14.7 % (11.5-14.5); RDW Standard Deviation 52.3 fL (36.4-46.3); Red Blood Count 2.81 M/uL (4.2-5.4); White Blood Count 4.07 K/uL (4.8-10.8)
[2021-02-06] MEDS: SOTALOL HCL 80 MG TAB PO SCH (23:57)
[2021-02-07] MEDS ORDERED: HEPARIN 100 UNIT/ML 5ML FLUSH FLUSH PRN (00:53)
[2021-02-07 06:04] LABS: Basophils # (auto) 0.02 K/uL (0-0.2); Basophils % (auto) 0.6 %; Eosinophils # (auto) 0.17 K/uL (0-0.5); Eosinophils % (auto) 5.2 %; Hematocrit (blood only) 27.3 % (37-47); Hemoglobin 8.9 g/dL (12.0-16.0); Lymphocytes # (auto) 0.83 K/uL (1.2-3.4); Lymphocytes % (auto) 25.5 %; Mean Corpuscular Hemoglobin 32.2 pg (25-34); Mean Corpuscular Hgb Conc 32.6 g/dL (32-36); Mean Corpuscular Volume 98.9 fL (80-100); Mean Platelet Volume 10.5 fL (7.4-10.4); Monocytes # (auto) 0.35 K/uL (0.11-0.59); Monocytes % (auto) 10.8 %; Neutrophils # (auto) 1.88 K/uL (1.4-6.5); Neutrophils % (auto) 57.9 %; Platelet Count 104 K/uL (130-400); RDW Coefficient of Variation 14.7 % (11.5-14.5); RDW Standard Deviation 52.9 fL (36.4-46.3); Red Blood Count 2.76 M/uL (4.2-5.4); White Blood Count 3.25 K/uL (4.8-10.8)
[2021-02-07 06:30] LABS: BUN Creatinine Ratio 29.7 (10-20); Calcium 8.5 mg/dl (8.5-10.1); Creatinine Clr Calc Pharmacy 79.2 ml/min; Est GFR (Non-African American) 88.9 ml/min; Potassium 3.4 mmol/L (3.5-5.1)
[2021-02-07] MEDS: SERTRALINE HCL 50 MG TABLET PO SCH (08:09)
[2021-02-07] MEDS: dilTIAZem ER 180 MG CAPCR PO SCH (08:09)
[2021-02-07] MEDS: POTASSIUM CHLORIDE CRTAB 20 MEQ TABCR PO SCH (08:10)
[2021-02-07] MEDS: FUROSEMIDE 40 MG TAB PO SCH (08:10)
[2021-02-07] MEDS: PANTOprazole 40 MG TAB PO SCH (08:10)
[2021-02-07] MEDS: SOTALOL HCL 80 MG TAB PO SCH ×2 (08:10→20:55)
[2021-02-07 16:28] LABS: Hematocrit (blood only) 25.5 % (37-47); Hemoglobin 8.5 g/dL (12.0-16.0)
[2021-02-07 16:44] LABS: Prothrombin Time 10.5 Seconds (9.0-12.0)
--- NOTE | 2021-02-07 18:59 | Hospitalist Progress Note ---
Date of Service February 07, 2021 Assessment & Plan (1) Spontaneous hematoma of thigh: Plan: Patient has intramuscular hematoma to her left distal aspect of the medial th igh. No clear trauma but patient does report that she may have pulled a muscle while doing gardening It appears as though the edema is improving. There does appear to be some new lividity in the gastrocnemius region. Patient was anticoagulated chronically for atrial fibrillation as well as previous DVT Coumadin has been held INR was 1.9 yesterday and is now 1.0 Continue to monitor H&H Currently no indication for transfusion (2) Anemia: Plan: This is most likely acute blood loss from the spontaneous hematoma of her left thigh Hemoglobin this morning is 9.2 g/Marcelle. Repeat labs at 1600 this afternoon showed a hemoglobin of 8.5 g/Marcelle Hemodynamically stable INR corrected from 1.9-1.0 Check repeat labs in the morning Continue to monitor on telemetry with vital signs per protocol (3) History of lymphoma: Plan: Patient with Mediport in place Most recent chemotherapy was last summer Follow outpatient (4) Paroxysmal atrial fibrillation: Plan: Patient is rate controlled and in sinus rhythm on exam Has been anticoagulated with Eliquis in the past but developed DVT. She was then changed to Coumadin At this time anticoagulation has been held secondary to hematoma of the left inner thigh Continue to monitor on telemetry (5) Presence of cardiac pacemaker: Plan: Patient has paroxysmal atrial fibrillation At this time she is rate controlled restart anticoagulation once bleeding seems to have stabilized -continue sotalol, diltiazem (6) HTN (hypertension): Plan: Hemodynamically stable Continue sotalol and diltiazem (7) DVT prophylaxis: Plan: Anticoagulation held for mid thigh hematoma as listed above LUIS Mclean as tolerated Ambulate as tolerated Admission and Anticipated Discharge Date Admission Date: February 06, 2021 Supervising Physician Co-Signing Physician Notes PA Supervision Note: I did not personally see or examine the patient today, but I verified all manning points of JACKELINE Montaño's assessment and plan with the following exceptions/additions: None Subjective Attending: Dr. Santos Patient seen and examined at bedside. She reports that edema of left leg with hematoma is much better. Much less painful. She has no other reported b leeding. She denies fever chills. She denies any trauma to that leg. She does report that she sat down on the toilet hard 1 day. She also reports that she was working in the garden and that she cannot get on her knees. She was leaning over to get something and felt like she pulled a muscle in the left leg. She has no other acute complaints at this time Review of Systems Review of Systems: All systems reviewed & are unremarkable except as noted in Subjective Physical Exam Physical Exam: GENERAL : No acute distress EYES: No icterus, gaze conjugate NOSE: No evidence of epistaxis MOUTH: No lesions or candidiasis NECK: Supple LUNGS: CTA B/L, no wheezes, rales or rhonchi HEART: Regular, rate controlled ABDOMEN: Soft, NT, ND, BS Present EXTREMITIES: No LE edema, pedal pulses intact. There is lividity of the left leg underneath the popliteal region as well as in the calf. There is also evidence of hematoma on the inner thigh. Patient has no significant pain to palpation. Pulses are intact at the femoral artery, popliteal artery, pedal arteries NEURO: A&OX3 Results & Data Results & Data ([facility]) Vital Signs (Past 12 Hours) Vital Signs Temp Pulse Resp BP BP Pulse Ox 02/07/21 16:16 37.0 C 63 18 99/54 L 96 02/07/21 12:14 36.4 C L 63 106/56 L 95 02/07/21 08:01 36.9 C 64 20 119/65 97 Laboratory Results 02/07/21 15:59 02/07/21 05:22 Diagnostic Findings US venous doppler LE LT HISTORY: 85 years-old Female evalk for DVT, hematoma acute pain and swelling of the left lower extremity COMPARISON: None TECHNIQUE: Multiple real-time sonographic images of the left lower extremity were obtained assessing grayscale appearance, color and spectral flow FINDINGS: Normal flow, compressibility, phasicity and augmentation. Within the distal aspect of the medial thigh there is a complex mixed echogenicity intramuscular collection measuring 20.7 x 4.3 cm. IMPRESSION: 1. No DVT. 2. Mixed echogenicity lesion without color flow within the medial proximal to the distal thigh measuring over 20 cm in length is suggestive of an intramuscular hematoma. ACT 112: Negative or not required by law. The above report was generated using voice recognition software. It may contain grammatical, syntax or spelling errors. Electronically signed by: Gianni Rodriguez M.D. 02/06/2021 3:34 PM PG Care Time/CCT Total # of Minutes Spent Total Time Spent with Patient: Total time spent is greater than 50% in coord ination of care (as documented) at patient's floor/unit and/or counseling patient: Coding Level of Care Code 11031 Subseq Hosp Care Lvl 2 Diagnoses Spontaneous hematoma of thigh R23.3 Anemia D64.9 Anemia type: other cause History of lymphoma Z85.79 Paroxysmal atrial fibrillation I48.0 Presence of cardiac pacemaker Z95.0 HTN (hypertension) I10 DVT prophylaxis Z29.9 Time Spent (min) 20 (1) Anemia Anemia type: other cause
[2021-02-08 06:01] LABS: Hematocrit (blood only) 25.8 % (37-47); Hemoglobin 8.5 g/dL (12.0-16.0); Mean Corpuscular Hemoglobin 32.3 pg (25-34); Mean Corpuscular Hgb Conc 32.9 g/dL (32-36); Mean Corpuscular Volume 98.1 fL (80-100); Mean Platelet Volume 10.1 fL (7.4-10.4); Platelet Count 104 K/uL (130-400); RDW Coefficient of Variation 14.9 % (11.5-14.5); RDW Standard Deviation 52.8 fL (36.4-46.3); Red Blood Count 2.63 M/uL (4.2-5.4); White Blood Count 3.57 K/uL (4.8-10.8)
[2021-02-08 06:21] LABS: Prothrombin Time 9.9 Seconds (9.0-12.0)
[2021-02-08] MEDS: PANTOprazole 40 MG TAB PO SCH (08:15)
[2021-02-08] MEDS: SERTRALINE HCL 50 MG TABLET PO SCH (08:15)
[2021-02-08] MEDS: SOTALOL HCL 80 MG TAB PO SCH (08:15)
[2021-02-08] MEDS: FUROSEMIDE 40 MG TAB PO SCH (08:15)
[2021-02-08] MEDS: dilTIAZem ER 180 MG CAPCR PO SCH (08:15)
[2021-02-08] MEDS: POTASSIUM CHLORIDE CRTAB 20 MEQ TABCR PO SCH (08:15)
--- NOTE | 2021-02-08 15:56 | Discharge Summary ---
Date of Service February 08, 2021 Admission HPI Per Admitting Provider Ly is an 85yo F with a PMHx of Afib on coumadin who presents with a large hematoma of the L calf with hgb decrease of ~3 points. Patient reports that she has been in her normal state of health, but noticed a spreading bruise along the back of her left thigh which appeared this morning but continued to spread. She reports that she is on warfarin and has been told that she should present to the doctor for signs of bleeding. 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 She completed chemotherapy from September to November [address] Hughes, lymphoma is in remission. She denies any injury, notes that she was stretching while gardening but has not felt a tear/snap/pop or pain in her leg, has not had any falls, and has not bumped her leg to her knowledge. She reports she lives at home with her son, no sick contacts in the home and is able to ambulate independently. Denies other bleeding, reports other bruising, no history of clinically significant bleeds per patient. She denies lightheadedness, dizziness, shortness of breath, chest pain prior to this. Denies syncope/presyncope. She reports she had one episode of lightheadedness while in the hospital when they set her up for an x-ray, otherwise none. Medical History: Reviewed Medications: Reviewed Surgical History: Reviewed Allergies: Reviewed Social History: Reviewed Code Status: Full code discussed with patient Admission Exam Per Admitting Provider General: A&Ox3. NAD. Cooperative. HEENT: Atraumatic, normocephalic. Pupils equal and reactive to light and accommodation. Vision grossly intact. Hearing grossly intact. Pulm: CTAB A&P. -wheezes, -rales, -rhonchi. Symmetrical chest rise. No increase work of breathing. No respiratory distress. Cardiac: RRR, -mrg. Radial pulses intact and symmetrical. Abdominal: Nontender, nondistended, soft. BS present. Extremity: Left posterior thigh with hematoma extending from the gluteal crease to approximately 2-3 cm distal to the popliteal fossa. Nontender to palpation. PT pulse intact bilaterally. Patient reports chronic paresthesia and tingling following chemotherapy with no acute change. Sensation to soft touch in feet intact bilaterally without asymmetry. PT pulse intact bilaterally without asymmetry. 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 Principal Diagnosis Left thigh hematoma, acute blood loss anemia Discharge Exam GENERAL : No acute distress EYES: No icterus, gaze conjugate NOSE: No evidence of epistaxis MOUTH: No lesions or candidiasis NECK: Supple LUNGS: CTA B/L, no wheezes, rales or rhonchi HEART: Regular, rate controlled ABDOMEN: Soft, NT, ND, BS Present EXTREMITIES: No LE edema, pedal pulses intact. No evidence of compartment syndrome of the left leg. Pedal pulses intact and equal bilaterally. Ecchymosis seems to be improving. NEURO: A&OX3 Discharge Data Allergies Allergy/AdvReac Type Severity Reaction Status Date / Time digoxin AdvReac Mild DIARRHEA Verified 02/06/21 12:36 Ordered Studies 02/06/21 11:39 US venous doppler LE LT Stat 02/06/21 16:48 CT femur LT w con Stat 02/08/21 05:47 02/07/21 05:22 INR 1.0 (0.9-1.1) 02/08/21 05:47 Hospital Course (1) Spontaneous hematoma of thigh: Patient has intramuscular hematoma to her left distal aspect of the medial thigh. No clear trauma but patient does report that she may have pulled a muscle while doing gardening It appears as though the edema is improving. There does appear to be some new lividity in the gastrocnemius region. Patient was anticoagulated chronically for atrial fibrillation as well as previous DVT Coumadin has been held and she was given vitamin K upon admission INR is now 1.0 Ambulatory order placed for CBC to be drawn on 02/10/2021 Enter system message sent to Dr. Saldaña (patient's PCP) to follow-up with patient Patient should schedule appointment with the Coumadin clinic for 1 week If hemoglobin stable, she can restart Coumadin on 02/10 (2) Anemia: This is most likely acute blood loss from the spontaneous hematoma of her left thigh Hemoglobin remained stable now x2 days at 8.5 g/dL Hemodynamically stable INR corrected from 1.9-1.0 We will start patient on ferrous sulfate 325 mg p.o. twice daily Follow-up CBC in 2 days as above (3) History of lymphoma: Patient with Mediport in place Most recent chemotherapy was last summer Follow outpatient (4) Paroxysmal atrial fibrillation: Patient is rate controlled and in paced rhythm on exam Has been anticoagulated with Eliquis in the past but developed DVT. She was th en changed to Coumadin At this time anticoagulation has been held secondary to hematoma of the left inner thigh Continue sotalol If hemoglobin is improving on Saturday's labs, may restart anticoagulation with Coumadin. Appointment being scheduled for Coumadin clinic in 1 week (5) Presence of cardiac pacemaker: Patient has paroxysmal atrial fibrillation At this time she is rate controlled Continue sotalol, diltiazem (6) HTN (hypertension): Hemodynamically stable Continue sotalol and diltiazem (7) DVT prophylaxis: Anticoagulation held for mid thigh hematoma as listed above LUIS Mclean as tolerated Ambulate as tolerated Disposition-stable for discharge to home, she did very well with physical therapy Total Time Total Time Spent Total Time Spent (In Minutes): 45 Discharge Plan Discharge Items Patient Disposition: Home - Self-Care Reason For Visit: ACUTE THIGH HEMATOMA ON WARFARIN Discharge Diagnosis: Left thigh hematoma Activity: Resume your previous activity Lifting: Gradually increase as tolerated Bathing: No limitations Exercise/Sports: Gradually increase as tolerated Weightbearing: Full weightbearing Non-emergency contact: Primary Care Provider Call non-emergency contact if: your symptoms worsen, your pain is concerning for you and your wound pain has increased Follow-up/Referrals: Matt Saldaña, DO [Primary Care Provider] - Diet: Heart Healthy Ambulatory Orders: Complete Blood Count no Diff (Routine) Timeframe: [id number] Location: Determined by Patient Ordered By: Nishant Jurado Attending Provider Instructions: You were admitted for left thigh hematoma. Your INR level on admission was 2.1. On discharge your INR level was 1.0. Coumadin is being held to make sure that your hemoglobin (blood count) continues to rise. He should have labs completed with your primary care physician on Saturday to check your hemoglobin level. An order has been printed and will be sent with you. I have sent a message to Dr. Saldaña for follow-up. If your hemoglobin is improving, you may resume your Co umadin as you are previously taking it. You should follow-up with Coumadin clinic in 1 week. If you have increased pain or swelling of the left leg where your bruising is, please contact your primary care physician or come to the emergency room for evaluation. Pending Studies at Discharge: No Stand-Alone Forms: My [facility] Medications and DC Order Prescriptions: New ferrous sulfate 325 mg (65 mg iron) tablet 325 mg PO BID Qty: 60 RF: 0 Continued acetaminophen 500 mg tablet 500 mg PO Q6H PRN (Reason: Pain) RF: 0 aspirin 81 mg tablet,chewable 81 mg PO QAM RF: 0 sertraline 50 mg tablet 75 mg PO QAM Qty: 45 RF: 5 diltiazem HCl 180 mg capsule,extended release 24 hr 180 mg PO QAM Qty: 90 RF: 3 furosemide 40 mg tablet 40 mg PO QAM Qty: 90 RF: 1 sotalol 240 mg tablet 240 mg PO BID Qty: 180 RF: 3 potassium chloride 20 mEq tablet,ER particles/crystals 20 meq PO QAM Qty: 90 RF: 1 docusate sodium [Colace] 100 mg capsule 100 mg PO DAILY PRN (Reason: Constipation) RF: 0 polyethylene glycol 3350 17 gram/dose powder 17 g PO DAILY PRN (Reason: Constipation) RF: 0 multivitamin [Daily Multi-Vitamin] tablet 1 tab PO MOTH RF: 0 ascorbic acid (vitamin C) 500 mg tablet 500 mg PO WESA RF: 0 cholecalciferol (vitamin D3) 2,000 unit tablet 2,000 units PO WESA RF: 0 pantoprazole [Protonix] 40 mg tablet,delayed release (DR/EC) 40 mg PO DAILY Qty: 30 RF: 5 alprazolam 0.25 mg tablet 0.25 mg PO HS PRN (Reason: Insomnia) Qty: 30 RF: 0 vitamin E 200 unit Capsule 200 unit PO TUFR RF: 0 Boost 0.04 gram- 1 kcal/mL Liquid 1 ea PO QAM RF: 0 methocarbamol 750 mg Tablet 750 mg PO BID PRN (Reason: Pain) RF: 0 simvastatin 10 mg tablet 10 mg PO MOWEFR RF: 0 Discontinued warfarin 3 mg tablet See Rx Instructions PO UD RF: 0 Discharge Orders: Discharge Order (Routine); Ordered 02/08/21 Ordered By: Nishant Montaño Admission Data Admit Date/Time: 02/06/21 18:07 Attending Provider: Mariluz Santos Admit Provider: Mac Hunt Primary Care Provider: Matt Saldaña Other Interventions: Discharge Summary Assessment (RN) Last Done: 02/08/21 16:40 Supervising Physician Co-Signing Physician Notes PA Supervision Note: I personally saw and examined the patient. I verified all manning points and agree with JACKELINE Montaño with the following exceptions and/or additions: S-patient feeling much better, minimal pain in the left thigh, hemodynamically stable. Hemoglobin stable from yesterday at 8.5 Denies lightheadedness, no chest pain or shortness of breath. She is ambulating independently in the hallways O- Vitals reviewed Gen: AAOx3, NAD HEENT: Anicteric sclerae, EOMI CV: RRR no mgr nl S1S2 Pulm: CTAB no wcr Abd: +BS soft NT ND no masses or hernias Ext: Left medial thigh and posterior hamstring with significant ecchymosis with hematoma palpable in the left medial thigh Skin: Ecchymosis as above Neuro: Full strength throughout [id number]-old female here with acute blood loss anemia from intramuscular hematoma in the left thigh in the setting of anticoagulation Anticoagulation was reversed with vitamin K, hemoglobin remained stable and she did not require transfusion Sent home with ferrous sulfate twice daily Follow CBC in 2 days and if stable, can resume Coumadin and follow-up with INR with anticoagulation clinic next week Coding Level of Care Code D/C DAY MANAGEMENT >30 MINS Diagnoses Spontaneous hematoma of thigh R23.3 Anemia D64.9 Anemia type: other cause History of lymphoma Z85.79 Paroxysmal atrial fibrillation I48.0 Presence of cardiac pacemaker Z95.0 HTN (hypertension) I10 DVT prophylaxis Z29.9 Time Spent (min) 45
[2021-02-08] MEDS ORDERED: SIMVASTATIN 10 MG TAB PO SCH (21:00)
== END 2021-02-08 18:40 | disposition home or self-care (01) ==
LOC: 2S 10:12 → ED 10:12 → SUATTDRO 18:07 → 2S 22:15